=== PATIENT | female | born 1945 | race Caucasian/White ===

== ENCOUNTER → 2016-06-09 | Outpatient (REF) | payer MEDICARE, OTHER ==
[~2016-06-09] MED LIST: ACET65TA OR; ALBUTEROL INH; ARTHRITIS MEDICINE; ASPI1TAB PO; ASPI81TA45 OR; B-1210009 PO; CALC1TAB30 PO; CALCCHW12 OR; CEPH500C PO; CLAR5CHW OR; CYCL10TA PO; DIGO0.12 PO; DIGO0.126 OR; FERR325T OR; FERR32TA PO; HUMI40KI SC; HYOS125TA SL; KLS75TAB OR; METF850T PO; METO-209 PO; MULTIVIT; Mobic PO; OMEP40CA2 PO; PRAD150C PO; PRADAXA PO; ROSU10TA PO; SERT-138 PO; SULF500T2 PO; SYNT50TA PO; TOPR100T OR; TRAM50TA2 PO; VITA100T OR; VITA50003 PO; ZOLO100T OR; ZYRT1TAB PO
[2016-06-09 13:57] LABS: ALBUMIN 3.9 GM/DL (3.2-5.2); ALBUMIN/GLOBULIN RATIO 1.11 (1.00-1.93); ALKALINE PHOSPHATASE 108 U/L (45-117); ALT/SGPT 28 U/L (12-78); ANION GAP 8 MEQ/L (8-16); AST/SGOT 24 U/L (15-37); BILIRUBIN,TOTAL 0.4 MG/DL (0.2-1.0); BLOOD UREA NITROGEN 16 MG/DL (7-18); CALCIUM LEVEL 8.6 MG/DL (8.8-10.2); CARBON DIOXIDE LEVEL 28 MEQ/L (21-32); CHLORIDE LEVEL 104 MEQ/L (98-107); CHOLESTEROL LEVEL 125 MG/DL (<200); CREATININE FOR GFR 0.78 MG/DL (0.55-1.02); GLOMERULAR FILTRATION RATE > 60.0 (>39); GLUCOSE, FASTING 285 MG/DL (83-110); POTASSIUM SERUM 4.1 MEQ/L (3.5-5.1); SODIUM LEVEL 140 MEQ/L (136-145); TOTAL PROTEIN 7.4 GM/DL (6.4-8.2); TRIGLYCERIDES LEVEL 146 MG/DL (<150)
== END ==
LOC: M LABDRAW1 13:02
PROVIDERS: ATTEND Family Medicine
DX: E55.9 Vitamin D deficiency, unspecified (principal); E11.9 Type 2 diabetes mellitus without complications

== ENCOUNTER → 2016-07-23 | Outpatient (CLI) | payer OTHER, MEDICARE ==
[2016-07-23 12:38] LABS: FERRITIN 146 NG/ML (8-252); PERCENT SATURATION 22.5 % (13.2-37.4); TOTAL IRON BINDING CAPACITY 293 UG/DL (250-450)
[2016-07-26 09:19] LABS: VITAMIN B12 LEVEL 1066 PG/ML (247-911)
[2016-07-26 12:24] LABS: HEPATITIS B SURFACE ANTIBODY NEGATIVE (POSITIVE)
== END ==
LOC: M WUC 10:07
PROVIDERS: ATTEND Internal Medicine Gastroenterology
DX: K50.10 Crohn's disease of large intestine without complications (principal); K21.9 Gastro-esophageal reflux disease without esophagitis; K75.81 Nonalcoholic steatohepatitis (NASH); M13.0 Polyarthritis, unspecified; R13.10 Dysphagia, unspecified

== ENCOUNTER → 2016-07-27 | Outpatient (CLI) | payer OTHER ==
[~2016-07-27] MED LIST changes: +CRES10TA32 PO; -ROSU10TA PO
--- NOTE | 2016-07-27 09:53 | REPMRS ---
Patient History The patient states she has not had a clinical breast exam in over a year. Patient is postmenopausal. Family history of prostate cancer in father at age 50 or over, breast cancer in 3 paternal cousins under age 50, and colorectal cancer in paternal cousin at age 50 or over. Took estrogen for 10 years. Digital Woman Screen Mammo: July 27, 2016 - Exam #: [id number] Bilateral CC and MLO view(s) were taken. Technologist: Kamini Carpenter, Technologist Prior study comparison: July 08, 2015, digital woman screen mammo performed at [facility]. July 07, 2014, digital woman screen mammo performed at [facility]. July 16, 2013, digital woman screen mammo performed at [facility]. FINDINGS: There are scattered fibroglandular densities. There has been no change in the appearance of the mammogram from the prior studies. There is a mild amount of residual fibroglandular tissue which is fairly symmetric. There is no interval development of dominant mass, architectural distortion, or clustered microcalcification suggestive of malignancy. There are scattered, small, benign calcifications of doubtful clinical significance. There is a benign appearing intramammary node in the upper outer quadrant of the bilateral breasts. Large coarse benign appearing calcifications are present. Scattered lymph nodes are seen in the axillae. No significant changes when compared with prior studies. ASSESSMENT: BI-RADS/ACR category 2 mammogram. Benign finding(s). Recommendation Routine screening mammogram in 1 year (for women over age 40). This mammogram was interpreted with the aid of an FDA-approved computer-aided dectection system. A. Negative x-ray reports should not delay biopsy if a dominant or clinically suspicious mass is present. B. Four to eight percent of cancers are not identified by mammography. C. Adenosis and dense breast may obscure an underlying neoplasm. Electronically Signed By: Uri Jones MD 07/27/16 0953
--- NOTE | 2016-07-28 13:37 | DEXA ---
AP SPINE L1 - L4 1.256 0.5 1.0 LT FEMUR TOTAL 0.875 -1.1 -0.4 RT FEMUR TOTAL 0.848 -1.3 -0.6 TOTAL BODY TOTAL OTHER DUAL FEMUR FRAX* ASSESSMENT Risk factors: Family history (parent hip fracture). History of fracture (adult ). Secondary osteoporosis (premature menopause). Rheumatoid arthritis. 10 year probability of fracture Major osteoporotic fracture 24.6 % Hip fracture 4.5 % COMMENTS: Normal bone densitometry of the spine. There is low bone density of the left hip. There is low bone density of the right hip. There is degenerative change in the spine which may artificially elevate the BMD. The increased density of the spine does represent a significant change since . The increased density of the left hip does not represent a significant change since 07/16/2013. The increased density of the right hip does not represent a significant change. The density of the spine has increased 3.3% since the initial exam on 2002. The spine density has increased 1.7% since the most recent exam on 07/16/2013. The density of the left hip has increased 0.1% since the initial exam on 2002. The density of the left hip has increased 0.5% since the most recent exam on . The density of the right hip has decreased 3.0% since the initial exam on 2002. The density of the right hip has increased 0.4% since the most recent exam on . FOLLOW-UP: Recommendation for the next bone density exam: 2 years. AIME
== END ==
LOC: M WHC 08:50
PROVIDERS: ATTEND Family Medicine
DX: E55.9 Vitamin D deficiency, unspecified (principal); Z12.31 Encounter for screening mammogram for malignant neoplasm of breast; M85.852 Other specified disorders of bone density and structure, left thigh; M85.851 Other specified disorders of bone density and structure, right thigh; M85.89 Other specified disorders of bone density and structure, multiple sites
CPT/HCPCS: 77080; G0202

== ENCOUNTER → 2016-12-12 | Outpatient (CLI) | payer OTHER ==
[~2016-12-12] MED LIST changes: -METF850T PO; +METF850T4 PO; -METO-209 PO; +METO1TAB33 PO; +VITA1CAP40 PO; -VITA50003 PO
[2016-12-12 14:29] LABS: BASO # 0.1 K/mm3 (0.0-0.2); EOS # 0.1 K/mm3 (0.0-0.50); EOS % 1.8 % (0.0-3.0); LARGE UNSTAINED CELL # 0.2 K/mm3 (0.0-0.4); LARGE UNSTAINED CELL % 2.9 % (0.0-4.0); LYMPH # 2.2 K/mm3 (1.5-4.5); LYMPH % 28.4 % (24.0-44.0); MEAN CORPUSCULAR HEMOGLOBIN 30.4 pg (27.0-33.0); MEAN CORPUSCULAR HGB CONC 32.6 g/dl (32.0-36.5); MEAN CORPUSCULAR VOLUME 93.5 fl (80.0-96.0); MONO # 0.6 K/mm3 (0.0-0.8); MONO % 8.9 % (0.0-5.0); PLATELET COUNT, AUTOMATED 271 k/mm3 (150-450); RED CELL DISTRIBUTION WIDTH 12.6 % (11.5-14.5)
[2016-12-12 15:21] LABS: PERCENT SATURATION 27.4 % (13.2-45.0)
== END ==
LOC: M SMT 09:06
PROVIDERS: ATTEND Family Medicine
DX: D50.9 Iron deficiency anemia, unspecified (principal); E11.9 Type 2 diabetes mellitus without complications

== ENCOUNTER → 2017-02-23 | Outpatient (REF) | payer OTHER ==
[2017-02-23 17:44] LABS: ALBUMIN 3.9 GM/DL (3.2-5.2); ALBUMIN/GLOBULIN RATIO 0.95 (1.00-1.93); ALKALINE PHOSPHATASE 119 U/L (45-117); ALT/SGPT 29 U/L (12-78); ANION GAP 6 MEQ/L (8-16); AST/SGOT 35 U/L (7-37); BILIRUBIN,TOTAL 0.4 MG/DL (0.2-1.0); BLOOD UREA NITROGEN 12 MG/DL (7-18); CALCIUM LEVEL 9.3 MG/DL (8.8-10.2); CARBON DIOXIDE LEVEL 34 MEQ/L (21-32); CHLORIDE LEVEL 97 MEQ/L (98-107); CREATININE FOR GFR 0.58 MG/DL (0.55-1.02); GLOMERULAR FILTRATION RATE > 60.0 (>39); GLUCOSE, FASTING 128 MG/DL (83-110); POTASSIUM SERUM 4.5 MEQ/L (3.5-5.1); SODIUM LEVEL 137 MEQ/L (136-145)
[2017-02-23 17:57] LABS: MEAN CORPUSCULAR HEMOGLOBIN 29.9 pg (27.0-33.0); MEAN CORPUSCULAR HGB CONC 32.2 g/dl (32.0-36.5); MEAN CORPUSCULAR VOLUME 92.9 fl (80.0-96.0); RED CELL DISTRIBUTION WIDTH 12.9 % (11.5-14.5)
[2017-02-23 17:58] LABS: CBCMD ORDERED? YES (YES)
[2017-02-23 18:23] LABS: ERYTHROCYTE SEDIMENTATION RATE 49 mm/hr (0-30)
== END ==
LOC: M SFHCPLAZ 14:40
PROVIDERS: ATTEND Family Medicine
DX: M46.90 Unspecified inflammatory spondylopathy, site unspecified (principal)

== ENCOUNTER → 2017-02-23 | Outpatient (CLI) | payer OTHER ==
--- NOTE | 2017-02-23 17:13 | REP ---
Left foot four views: There is diffuse demineralization. There is no fracture or dislocation. There is PIP and DIP joint space narrowing. There are calcaneal plantar and Achilles spurs. There is spurring along the superior margin of the talonavicular articulation. Impression: Degenerative changes and mineralization. Signed by Pietro Whatley MD 02/23/2017 05:05 P
== END ==
LOC: M RAD 15:30
PROVIDERS: ATTEND Family Medicine
DX: M77.32 Calcaneal spur, left foot (principal); M19.072 Primary osteoarthritis, left ankle and foot; M85.872 Other specified disorders of bone density and structure, left ankle and foot; M46.90 Unspecified inflammatory spondylopathy, site unspecified

== ENCOUNTER 2017-04-20 08:51 | Outpatient (CLI) | payer OTHER ==
[2017-04-20] MEDS ORDERED: NS 1,000 ML IV SCH (10:15)
[2017-04-20] MEDS ORDERED: ACETAMINOPHEN TAB 650MG DOSE (2X325MG) PO ONE (10:15)
[2017-04-20] MEDS ORDERED: diphenhydrAMINE 25 MG CAP PO ONE (10:15)
[2017-04-20] MEDS ORDERED: INFLIXIMAB BIOSIMILAR 600 MG in NS 190 ML IV ONE (10:30)
== END 2017-04-20 13:00 | disposition home or self-care (01) ==
LOC: M INFU 08:51
PROVIDERS: ATTEND Internal Medicine
DX: K50.90 Crohn's disease, unspecified, without complications (principal); Z96.653 Presence of artificial knee joint, bilateral; Z88.8 Allergy status to other drugs, medicaments and biological substances; Z88.5 Allergy status to narcotic agent; Z79.82 Long term (current) use of aspirin; Z79.899 Other long term (current) drug therapy
CPT/HCPCS: 96413; 96415; Q5102

== ENCOUNTER 2017-05-04 08:53 | Outpatient (CLI) | payer OTHER ==
[2017-05-04] MEDS: diphenhydrAMINE 25 MG CAP PO (09:28)
[2017-05-04] MEDS: ACETAMINOPHEN TAB 650MG DOSE (2X325MG) PO (09:30)
[2017-05-04] MEDS: NS 1,000 ML IV (09:54)
[2017-05-04] MEDS: INFLIXIMAB BIOSIMILAR 600 MG in NS 190 ML IV (09:54)
== END 2017-05-04 12:30 | disposition home or self-care (01) ==
LOC: M INFU 08:53
DX: K50.10 Crohn's disease of large intestine without complications (principal); I48.91 Unspecified atrial fibrillation; E78.00 Pure hypercholesterolemia, unspecified; K44.9 Diaphragmatic hernia without obstruction or gangrene; E03.9 Hypothyroidism, unspecified; E11.9 Type 2 diabetes mellitus without complications; M54.9 Dorsalgia, unspecified; M19.90 Unspecified osteoarthritis, unspecified site; Z79.899 Other long term (current) drug therapy; Z79.82 Long term (current) use of aspirin; Z79.891 Long term (current) use of opiate analgesic; Z79.84 Long term (current) use of oral hypoglycemic drugs; Z88.5 Allergy status to narcotic agent; Z88.2 Allergy status to sulfonamides; Z88.8 Allergy status to other drugs, medicaments and biological substances
CPT/HCPCS: 96413

== ENCOUNTER 2017-06-15 07:49 | Outpatient (CLI) | payer OTHER ==
[2017-06-15] MEDS: diphenhydrAMINE 25 MG CAP PO ×2 (08:15)
[2017-06-15] MEDS: ACETAMINOPHEN TAB 650MG DOSE (2X325MG) PO ×2 (08:15)
[2017-06-15] MEDS: INFLIXIMAB BIOSIMILAR 600 MG in NS 190 ML IV (09:04)
[2017-06-15] MEDS: NS 1,000 ML IV ×2 (09:04)
== END 2017-06-15 11:40 | disposition home or self-care (01) ==
LOC: M INFU 07:49
DX: K50.90 Crohn's disease, unspecified, without complications (principal); E11.9 Type 2 diabetes mellitus without complications; Z79.82 Long term (current) use of aspirin; Z79.84 Long term (current) use of oral hypoglycemic drugs; Z79.899 Other long term (current) drug therapy; Z79.891 Long term (current) use of opiate analgesic; Z88.5 Allergy status to narcotic agent; Z88.8 Allergy status to other drugs, medicaments and biological substances
CPT/HCPCS: Q5102

== ENCOUNTER → 2017-06-22 | Outpatient (CLI) | payer OTHER ==
[2017-06-22 14:37] LABS: PTH INTACT 28.3 PG/ML (18.5-88.0); TOTAL 25(OH) VITAMIN D 31.6 NG/ML (30.0-100.0)
[2017-06-22 14:42] LABS: ALBUMIN 3.9 GM/DL (3.2-5.2); ALBUMIN/GLOBULIN RATIO 1.05 (1.00-1.93); ALKALINE PHOSPHATASE 114 U/L (45-117); ALT/SGPT 36 U/L (12-78); ANION GAP 8 MEQ/L (8-16); AST/SGOT 48 U/L (7-37); BILIRUBIN,TOTAL 0.4 MG/DL (0.2-1.0); BLOOD UREA NITROGEN 12 MG/DL (7-18); C REACTIVE PROTEIN QUANTITATIV 0.93 MG/DL (0.00-0.30); CALCIUM LEVEL 8.8 MG/DL (8.8-10.2); CARBON DIOXIDE LEVEL 32 MEQ/L (21-32); CHLORIDE LEVEL 99 MEQ/L (98-107); CHOLESTEROL LEVEL 136 MG/DL (<200); CHOLESTEROL RISK RATIO 2.666 (<5); CPK CREATINE PHOSPHOKINASE 29 U/L (26-192); CREATININE FOR GFR 0.61 MG/DL (0.55-1.30); FREE T4 1.28 NG/DL (0.76-1.46); GLOMERULAR FILTRATION RATE > 60.0 (>39); GLUCOSE, FASTING 189 MG/DL (70-100); HDL CHOLESTEROL 51 MG/DL (>40); LDL CHOLESTEROL 56.2 MG/DL (<100); MAGNESIUM LEVEL 2.3 MG/DL (1.8-2.4); NON-HDL-C 85 MG/DL; POTASSIUM SERUM 4.5 MEQ/L (3.5-5.1); SODIUM LEVEL 139 MEQ/L (136-145); TOTAL PROTEIN 7.6 GM/DL (6.4-8.2); TRIGLYCERIDES LEVEL 144 MG/DL (<150)
[2017-06-22 15:49] LABS: ERYTHROCYTE SEDIMENTATION RATE 46 mm/hr (0-30)
== END ==
LOC: M SMT 08:27
DX: E78.5 Hyperlipidemia, unspecified (principal); E55.9 Vitamin D deficiency, unspecified; M46.90 Unspecified inflammatory spondylopathy, site unspecified; E03.9 Hypothyroidism, unspecified
CPT/HCPCS: 82550

== ENCOUNTER → 2017-08-02 | Outpatient (CLI) | payer OTHER ==
[2017-08-02 10:14] LABS: C REACTIVE PROTEIN QUANTITATIV 0.93 MG/DL (0.00-0.30)
[2017-08-02 10:26] LABS: ERYTHROCYTE SEDIMENTATION RATE 46 mm/hr (0-30)
== END ==
LOC: M LAB 09:13
DX: K50.10 Crohn's disease of large intestine without complications (principal)
CPT/HCPCS: 86140

== ENCOUNTER 2017-08-10 13:44 | Outpatient (CLI) | payer OTHER ==
[2017-08-10] MEDS: diphenhydrAMINE 25 MG CAP PO (14:37)
[2017-08-10] MEDS: ACETAMINOPHEN TAB 650MG DOSE (2X325MG) PO (14:37)
[2017-08-10] MEDS: NS 1,000 ML IV (14:38)
[2017-08-10] MEDS: inFLIXimab INJECTION 600 MG in NS 190 ML IV (14:38)
== END 2017-08-10 17:15 | disposition home or self-care (01) ==
LOC: M INFU 13:44
DX: K50.10 Crohn's disease of large intestine without complications (principal); I48.91 Unspecified atrial fibrillation; E78.00 Pure hypercholesterolemia, unspecified; E11.9 Type 2 diabetes mellitus without complications; D64.9 Anemia, unspecified; J45.909 Unspecified asthma, uncomplicated; K44.9 Diaphragmatic hernia without obstruction or gangrene; Z79.84 Long term (current) use of oral hypoglycemic drugs; Z79.82 Long term (current) use of aspirin; Z79.891 Long term (current) use of opiate analgesic; Z79.899 Other long term (current) drug therapy; Z88.5 Allergy status to narcotic agent; Z88.8 Allergy status to other drugs, medicaments and biological substances
CPT/HCPCS: J1745

== ENCOUNTER 2017-10-05 11:24 | Outpatient (CLI) | payer OTHER ==
[2017-10-05] MEDS: FILTER 1.2 MICRON (ADULT TPN/MANNITOL/REMICADE) XX (12:45)
[2017-10-05] MEDS: diphenhydrAMINE 25 MG CAP PO (12:48)
[2017-10-05] MEDS: NS 1,000 ML IV (12:48)
[2017-10-05] MEDS: ACETAMINOPHEN TAB 650MG DOSE (2X325MG) PO (12:48)
[2017-10-05] MEDS: INFLIXIMAB BIOSIMILAR 600 MG in NS 190 ML IV (13:00)
== END 2017-10-05 15:20 | disposition home or self-care (01) ==
LOC: M INFU 11:24
DX: K50.10 Crohn's disease of large intestine without complications (principal); E78.00 Pure hypercholesterolemia, unspecified; I51.9 Heart disease, unspecified; K21.9 Gastro-esophageal reflux disease without esophagitis; K44.9 Diaphragmatic hernia without obstruction or gangrene; M54.2 Cervicalgia; M12.9 Arthropathy, unspecified; D64.9 Anemia, unspecified; E11.9 Type 2 diabetes mellitus without complications; Z79.82 Long term (current) use of aspirin; Z79.84 Long term (current) use of oral hypoglycemic drugs; Z79.891 Long term (current) use of opiate analgesic; Z79.899 Other long term (current) drug therapy; Z88.8 Allergy status to other drugs, medicaments and biological substances; Z90.49 Acquired absence of other specified parts of digestive tract; Z90.710 Acquired absence of both cervix and uterus
CPT/HCPCS: Q5103

== ENCOUNTER → 2017-11-02 | Outpatient (CLI) | payer OTHER ==
[2017-11-02 11:55] LABS: BASO # 0.1 10^3/uL (0.0-0.2); EOS # 0.1 10^3/uL (0.0-0.50); EOS % 1.5 % (0.0-3.0); HEMATOCRIT 38.9 % (36.0-47.0); HEMOGLOBIN 12.4 g/dl (12.0-15.5); IMMATURE GRANULOCYTE % 0.4 % (0-3.0); LYMPH % 28.8 % (24.0-44.0); MEAN CORPUSCULAR HEMOGLOBIN 30.2 pg (27.0-33.0); MEAN CORPUSCULAR HGB CONC 31.9 g/dl (32.0-36.5); MEAN CORPUSCULAR VOLUME 94.9 fl (80.0-96.0); MONO # 0.9 10^3/uL (0.0-0.8); MONO % 12.4 % (0.0-5.0); NEUTROPHILS # 3.8 10^3/uL (1.8-7.7); NEUTROPHILS % 55.9 % (36.0-66.0); PLATELET COUNT, AUTOMATED 269 10^3/uL (150-450); RED CELL DISTRIBUTION WIDTH 12.3 % (11.5-14.5); RETIC HEMOGLOBIN EQUIVALENT 34.5 pg (24-36); RETICULOCYTE # 79.5 10^9/L (17-77); RETICULOCYTE % 1.9 % (0.5-1.5); WHITE BLOOD COUNT 6.9 10^3/uL (4.0-10.0)
[2017-11-02 13:27] LABS: ESTIMATED AVERAGE GLUCOSE 137 MG/DL (60-110); HEMOGLOBIN A1c 6.4 %
[2017-11-02 14:37] LABS: VITAMIN B12 LEVEL 1795 PG/ML (247-911)
[2017-11-07 00:08] LABS: FREE T4 BY DIALYSIS DIRECT 1.4 ng/dL (.)
== END ==
LOC: M SMT 08:18
DX: E11.9 Type 2 diabetes mellitus without complications (principal); D50.9 Iron deficiency anemia, unspecified; E53.8 Deficiency of other specified B group vitamins; E03.9 Hypothyroidism, unspecified
CPT/HCPCS: 84443

== ENCOUNTER 2017-11-16 07:49 | Outpatient (CLI) | payer OTHER ==
[2017-11-16] MEDS: ACETAMINOPHEN TAB 650MG DOSE (2X325MG) PO (08:00)
[2017-11-16] MEDS: FILTER 1.2 MICRON (ADULT TPN/MANNITOL/REMICADE) XX (08:00)
[2017-11-16] MEDS: diphenhydrAMINE 25 MG CAP PO (08:18)
[2017-11-16] MEDS: NS 1,000 ML IV (08:59)
[2017-11-16] MEDS: inFLIXimab INJECTION 600 MG in NS 190 ML IV (09:24)
== END 2017-11-16 11:20 | disposition home or self-care (01) ==
LOC: M INFU 07:49
DX: K50.00 Crohn's disease of small intestine without complications (principal); J45.909 Unspecified asthma, uncomplicated; E78.00 Pure hypercholesterolemia, unspecified; D64.9 Anemia, unspecified; M54.2 Cervicalgia; K21.9 Gastro-esophageal reflux disease without esophagitis; E11.9 Type 2 diabetes mellitus without complications; I48.91 Unspecified atrial fibrillation; Z79.82 Long term (current) use of aspirin; Z79.84 Long term (current) use of oral hypoglycemic drugs; Z79.891 Long term (current) use of opiate analgesic; Z79.899 Other long term (current) drug therapy; Z88.8 Allergy status to other drugs, medicaments and biological substances
CPT/HCPCS: J1745

== ENCOUNTER → 2017-12-07 | Outpatient (CLI) | payer OTHER | LOC: M LRY 09:09 | DX: M51.36 Other intervertebral disc degeneration, lumbar region (principal); M51.37 Other intervertebral disc degeneration, lumbosacral region; M25.78 Osteophyte, vertebrae; M25.732 Osteophyte, left wrist; M19.041 Primary osteoarthritis, right hand; M19.042 Primary osteoarthritis, left hand; M53.3 Sacrococcygeal disorders, not elsewhere classified; M85.841 Other specified disorders of bone density and structure, right hand; M85.842 Other specified disorders of bone density and structure, left hand; M19.031 Primary osteoarthritis, right wrist; M19.032 Primary osteoarthritis, left wrist; M47.816 Spondylosis without myelopathy or radiculopathy, lumbar region; M46.90 Unspecified inflammatory spondylopathy, site unspecified | CPT/HCPCS: 72100 ==

== ENCOUNTER → 2017-12-21 | Outpatient (REF) | payer OTHER ==
[2017-12-21 11:37] LABS: URIC ACID 4.2 MG/DL (2.6-6.0)
[2017-12-21 11:37] LABS: C REACTIVE PROTEIN QUANTITATIV 1.41 MG/DL (0.00-0.30); RHEUMATOID FACTOR QUANT < 10.0 IU/ML (<15.0)
[2017-12-21 12:12] LABS: ERYTHROCYTE SEDIMENTATION RATE 59 mm/hr (0-30)
[2017-12-23 00:06] LABS: CYCLIC CITRULLINATED PEPTIDE 10 units (0-19)
== END ==
LOC: M LABDRAW1 09:08
DX: M46.90 Unspecified inflammatory spondylopathy, site unspecified (principal)
CPT/HCPCS: 84550

== ENCOUNTER 2017-12-28 07:56 | Outpatient (CLI) | payer OTHER ==
[2017-12-28] MEDS: ACETAMINOPHEN TAB 650MG DOSE (2X325MG) PO (08:15)
[2017-12-28] MEDS ORDERED: NS 1,000 ML IV (08:15)
[2017-12-28] MEDS: diphenhydrAMINE 25 MG CAP PO (08:17)
[2017-12-28] MEDS: FILTER 1.2 MICRON (ADULT TPN/MANNITOL/REMICADE) XX (09:00)
[2017-12-28] MEDS: inFLIXimab INJECTION 600 MG in NS 190 ML IV (09:03)
== END 2017-12-28 11:15 | disposition home or self-care (01) ==
LOC: M INFU 07:56
DX: K50.10 Crohn's disease of large intestine without complications (principal); Z88.5 Allergy status to narcotic agent; Z88.8 Allergy status to other drugs, medicaments and biological substances
CPT/HCPCS: J1745

== ENCOUNTER 2018-02-08 07:49 | Outpatient (CLI) | payer OTHER ==
[2018-02-08] MEDS: FILTER 1.2 MICRON (ADULT TPN/MANNITOL/REMICADE) XX (08:15)
[2018-02-08] MEDS: NS 1,000 ML IV (08:15)
[2018-02-08] MEDS: diphenhydrAMINE 25 MG CAP PO (08:43)
[2018-02-08] MEDS: ACETAMINOPHEN TAB 650MG DOSE (2X325MG) PO (08:43)
[2018-02-08] MEDS: inFLIXimab INJECTION 600 MG in NS 190 ML IV (08:44)
== END 2018-02-08 11:00 | disposition home or self-care (01) ==
LOC: M INFU 07:49
DX: K50.10 Crohn's disease of large intestine without complications (principal); Z88.5 Allergy status to narcotic agent; Z88.8 Allergy status to other drugs, medicaments and biological substances
CPT/HCPCS: J1745

== ENCOUNTER → 2018-03-12 | Outpatient (REF) | payer OTHER ==
[2018-03-12 14:21] LABS: HEMATOCRIT 37.6 % (36.0-47.0); HEMOGLOBIN 11.8 g/dl (12.0-15.5); MEAN CORPUSCULAR HGB CONC 31.4 g/dl (32.0-36.5); MEAN CORPUSCULAR VOLUME 95.7 fl (80.0-96.0); PLATELET COUNT, AUTOMATED 252 10^3/uL (150-450); RED BLOOD COUNT 3.93 10^6/uL (4.00-5.40); RED CELL DISTRIBUTION WIDTH 12.6 % (11.5-14.5); WHITE BLOOD COUNT 6.5 10^3/uL (4.0-10.0)
[2018-03-12 14:28] LABS: ALBUMIN 3.8 GM/DL (3.2-5.2); ALKALINE PHOSPHATASE 98 U/L (45-117); ALT/SGPT 23 U/L (12-78); ANION GAP 8 MEQ/L (8-16); AST/SGOT 29 U/L (7-37); BILIRUBIN,TOTAL 0.4 MG/DL (0.2-1.0); BLOOD UREA NITROGEN 16 MG/DL (7-18); CARBON DIOXIDE LEVEL 31 MEQ/L (21-32); CHLORIDE LEVEL 99 MEQ/L (98-107); CREATININE FOR GFR 0.66 MG/DL (0.55-1.30); GLOMERULAR FILTRATION RATE > 60.0 (>39); GLUCOSE, FASTING 133 MG/DL (70-100); POTASSIUM SERUM 4.5 MEQ/L (3.5-5.1); SODIUM LEVEL 138 MEQ/L (136-145); TOTAL PROTEIN 7.6 GM/DL (6.4-8.2)
[2018-03-12 14:32] LABS: INR 1.13; PROTHROMBIN TIME 14.6 SECONDS (12.1-14.4)
[2018-03-12 14:34] LABS: ALPHA FETOPROTEIN TUMOR QUANT 6.4 NG/ML (<8.1)
[2018-03-12 14:35] LABS: TOTAL 25(OH) VITAMIN D 33.2 NG/ML (30.0-100.0)
[2018-03-15 09:37] LABS: ANSER IFX #3150 SEE SEPARATE REPORT
== END ==
LOC: M LABDRAW1 12:59
DX: K50.10 Crohn's disease of large intestine without complications (principal); R19.7 Diarrhea, unspecified; M13.0 Polyarthritis, unspecified; K21.9 Gastro-esophageal reflux disease without esophagitis; K22.2 Esophageal obstruction; K75.81 Nonalcoholic steatohepatitis (NASH)
CPT/HCPCS: 83735

== ENCOUNTER 2018-03-25 07:50 | Outpatient (CLI) | payer OTHER ==
[2018-03-25] MEDS ORDERED: diphenhydrAMINE 50 MG CAP As Ordered (07:57)
[2018-03-25] MEDS: diphenhydrAMINE 50MG PO PRIOR TO INFUSION PO (08:13)
[2018-03-25] MEDS: ACETAMINOPHEN 650MG PO PRIOR TO INFUSION PO (08:13)
[2018-03-25] MEDS: NS 1,000 ML IV (08:14)
[2018-03-25] MEDS: inFLIXimab INJECTION 600 MG in NS 190 ML IV (08:50)
[2018-03-25] MEDS ORDERED: FILTER 1.2 MICRON (ADULT TPN/MANNITOL/REMICADE) XX (09:00)
== END 2018-03-25 11:05 | disposition home or self-care (01) ==
LOC: M INFU 07:50
DX: K50.10 Crohn's disease of large intestine without complications (principal); Z88.5 Allergy status to narcotic agent; Z88.8 Allergy status to other drugs, medicaments and biological substances
CPT/HCPCS: J1745

== ENCOUNTER → 2018-04-08 | Outpatient (REF) | payer OTHER ==
[2018-04-08 12:24] LABS: PH,URINE MAN 5.5 UNITS (5.0 - 7.0)
[2018-04-08 12:25] LABS: APPEARANCE, URINE MANUAL HAZY (CLEAR); BILIRUBIN, URINE MANUAL NEGATIVE (NEGATIVE); BLOOD URINE MANUAL NEGATIVE (NEGATIVE); COLOR, URINE MANUAL YELLOW (YELLOW); GLUCOSE, URINE (UA) MANUAL NEGATIVE (NEGATIVE); KETONE, URINE MANUAL NEGATIVE (NEGATIVE); LEUKOCYTE ESTERASE, URINE MAN POSITIVE (NEGATIVE); MICROSCOPIC INDICATED? MAN YES (NO); NITRITE, URINE MANUAL NEGATIVE (NEGATIVE); PROTEIN, URINE MANUAL 1+ mg/dL (NEGATIVE); UROBILINOGEN, URINE MANUAL NORMAL (NORMAL)
[2018-04-08 12:28] LABS: CALCIUM OXALATE CRYSTALS,URINE SMALL AMOUNT /hpf; RBC, URINE NONE SEEN /hpf (0-3); RENAL EPITHELIAL CELLS, URINE SMALL AMOUNT /hpf; SQUAMOUS EPITHELIAL CELL URINE SMALL AMOUNT /hpf (SMALL AMT)
[2018-04-08 12:29] LABS: AMORPHOUS SEDIMENT, URINE SMALL AMOUNT (NEGATIVE); BACTERIA, URINE SMALL AMOUNT; HYALINE CAST, URINE 0-1 /lpf (0-1); MICROSCOPIC EXAM PERFORMED
[2018-04-08 12:47] LABS: MALB URINE SIEMENS 46.3 MG/L; MAU/CREAT RATIO 21.6 MCG/MG (0.0-30.0)
[2018-04-11 00:06] LABS: QuantiFERON-TB Gold Plus Negative (Negative)
== END ==
LOC: M SFHCPLAZ 09:03
DX: M46.90 Unspecified inflammatory spondylopathy, site unspecified (principal)
CPT/HCPCS: 82043

== ENCOUNTER → 2018-04-15 | Outpatient (REF) | payer OTHER ==
[~2018-04-15] MED LIST changes: -VITA1CAP40 PO; +VITA50005 PO
[2018-04-15 12:30] LABS: BASO # 0.1 10^3/uL (0.0-0.2); EOS # 0.1 10^3/uL (0.0-0.50); EOS % 1.5 % (0.0-3.0); HEMATOCRIT 37.5 % (36.0-47.0); HEMOGLOBIN 11.8 g/dl (12.0-15.5); LYMPH % 29.7 % (24.0-44.0); MEAN CORPUSCULAR HEMOGLOBIN 29.9 pg (27.0-33.0); MEAN CORPUSCULAR HGB CONC 31.5 g/dl (32.0-36.5); MEAN CORPUSCULAR VOLUME 95.2 fl (80.0-96.0); MONO # 0.8 10^3/uL (0.0-0.8); MONO % 11.2 % (0.0-5.0); NEUTROPHILS # 3.8 10^3/uL (1.8-7.7); NEUTROPHILS % 56.2 % (36.0-66.0); PLATELET COUNT, AUTOMATED 265 10^3/uL (150-450); RED BLOOD COUNT 3.94 10^6/uL (4.00-5.40); WHITE BLOOD COUNT 6.7 10^3/uL (4.0-10.0)
[2018-04-15 12:40] LABS: APPEARANCE, URINE CLOUDY (CLEAR); BACTERIA, URINE AUTO 2+ (NEGATIVE); BILIRUBIN, URINE AUTO NEGATIVE (NEGATIVE); BLOOD, URINE BLOOD NEGATIVE (NEGATIVE); CALCIUM OXALATE CRYSTALS LARGE; COLOR, URINE AMBER (YELLOW); GLUCOSE, URINE (UA) AUTO NEGATIVE (NEGATIVE); KETONE, URINE AUTO NEGATIVE (NEGATIVE); LEUKOCYTE ESTERASE, URINE AUTO 3+ (NEGATIVE); MUCUS, URINE SMALL (NEGATIVE); NITRITE, URINE AUTO NEGATIVE (NEGATIVE); PROTEIN, URINE AUTO 1+ mg/dL (NEGATIVE); RBC, URINE AUTO 4 /HPF (0-3); SPECIFIC GRAVITY URINE AUTO 1.031 (1.002-1.035); SQUAMOUS EPITHELIAL CELL UR AU 21 /HPF (0-6); WBC, URINE AUTO 24 /HPF (0-3)
[2018-04-15 12:46] LABS: CHOLESTEROL RISK RATIO 3.021 (<5); FREE T4 1.1 NG/DL (0.76-1.46); THYROID STIMULATING HORMONE 5.77 uIU/ML (0.358-3.740)
[2018-04-15 13:43] LABS: MALB URINE SIEMENS 80.7 MG/L
== END ==
LOC: M SFHCPLAZ 08:40
PROVIDERS: ATTEND Physician Assistant Medical
DX: D50.9 Iron deficiency anemia, unspecified (principal); E78.5 Hyperlipidemia, unspecified; M46.90 Unspecified inflammatory spondylopathy, site unspecified

== ENCOUNTER 2018-05-13 11:05 | Outpatient (CLI) | payer MEDICARE, OTHER ==
[2018-05-13] VITALS (9 sets, daily range): BP systolic 121–170; BP diastolic 59–77
[~2018-05-13] VITALS: Ht 160 cm; Wt 123.3 kg
[2018-05-13] MEDS ORDERED: NS 1,000 ML IV SCH (12:00)
[2018-05-13] MEDS ORDERED: FILTER 1.2 MICRON (ADULT TPN/MANNITOL/REMICADE) XX ONE (12:00)
[2018-05-13] MEDS ORDERED: inFLIXimab INJECTION 600 MG in NS 190 ML IV ONE (12:00)
[2018-05-13] MEDS ORDERED: diphenhydrAMINE 50MG PO PRIOR TO INFUSION PO ONE (12:00)
[2018-05-13] MEDS ORDERED: ACETAMINOPHEN 650MG PO PRIOR TO INFUSION PO ONE (12:00)
== END 2018-05-13 14:45 | disposition home or self-care (01) ==
LOC: M INFU 11:05
PROVIDERS: ATTEND General Practice
DX: K50.10 Crohn's disease of large intestine without complications (principal); Z88.5 Allergy status to narcotic agent; Z88.2 Allergy status to sulfonamides; Z88.8 Allergy status to other drugs, medicaments and biological substances
CPT/HCPCS: 96413; 96415; J1745

== ENCOUNTER 2018-06-24 07:41 | Outpatient (CLI) | payer MEDICARE ==
[~2018-06-24] VITALS: Ht 162.6 cm; Wt 116.0 kg
[2018-06-24 07:59] VITALS: BP 141/93
[2018-06-24] MEDS ORDERED: diphenhydrAMINE 50MG PO PRIOR TO INFUSION PO ONE (08:00)
[2018-06-24] MEDS ORDERED: FILTER 1.2 MICRON (ADULT TPN/MANNITOL/REMICADE) XX ONE (08:00)
[2018-06-24] MEDS ORDERED: NS 1,000 ML IV SCH (08:00)
[2018-06-24] MEDS ORDERED: ACETAMINOPHEN 650MG PO PRIOR TO INFUSION PO ONE (08:00)
[2018-06-24] MEDS ORDERED: inFLIXimab INJECTION 600 MG in NS 190 ML IV ONE (08:30)
[2018-06-24 10:33] VITALS: BP 136/65
== END 2018-06-24 10:35 | disposition home or self-care (01) ==
LOC: M INFU 07:41
PROVIDERS: ATTEND Internal Medicine
DX: K50.10 Crohn's disease of large intestine without complications (principal); Z88.2 Allergy status to sulfonamides; Z88.5 Allergy status to narcotic agent; Z88.8 Allergy status to other drugs, medicaments and biological substances
CPT/HCPCS: 96413; 96415; J1745

== ENCOUNTER → 2018-08-02 | Outpatient (REF) | payer MEDICARE ==
[~2018-08-02] MED LIST changes: -ASPI1TAB PO; +ASPI81TA26 PO; +CRES10TA PO; -CRES10TA32 PO; +HYOS0.1256 SL; -HYOS125TA SL; +METO-745 OR; -PRAD150C PO; +PRAD150C6 PO; -TOPR100T OR
[2018-08-02 12:03] LABS: AMORPHOUS SEDIMENT SMALL (NEGATIVE); APPEARANCE, URINE HAZY (CLEAR); BACTERIA, URINE AUTO 1+ (NEGATIVE); BILIRUBIN, URINE AUTO NEGATIVE (NEGATIVE); BLOOD, URINE BLOOD NEGATIVE (NEGATIVE); COLOR, URINE AMBER (YELLOW); GLUCOSE, URINE (UA) AUTO NEGATIVE (NEGATIVE); KETONE, URINE AUTO NEGATIVE (NEGATIVE); LEUKOCYTE ESTERASE, URINE AUTO 2+ (NEGATIVE); NITRITE, URINE AUTO NEGATIVE (NEGATIVE); PROTEIN, URINE AUTO NEGATIVE (NEGATIVE); RBC, URINE AUTO 10 /HPF (0-3); SQUAMOUS EPITHELIAL CELL UR AU 6 /HPF (0-6); UROBILINOGEN, URINE AUTO 0.2 mg/dL (0.0-2.0); WBC, URINE AUTO 8 /HPF (0-3)
[2018-08-02 12:14] LABS: ALBUMIN 3.7 GM/DL (3.2-5.2); ALT/SGPT 22 U/L (12-78); BILIRUBIN,TOTAL 0.3 MG/DL (0.2-1.0); BLOOD UREA NITROGEN 12 MG/DL (7-18); CARBON DIOXIDE LEVEL 32 MEQ/L (21-32); CHLORIDE LEVEL 100 MEQ/L (98-107); CPK CREATINE PHOSPHOKINASE 37 U/L (26-192); FERRITIN 106 NG/ML (8-252); FREE T4 1.27 NG/DL (0.76-1.46); GLOMERULAR FILTRATION RATE > 60.0 (>39); GLUCOSE, FASTING 124 MG/DL (70-100); IRON (FE) 61 UG/DL (50-170); PERCENT SATURATION 22.4 % (13.2-45.0); POTASSIUM SERUM 4.6 MEQ/L (3.5-5.1); SODIUM LEVEL 138 MEQ/L (136-145); TOTAL IRON BINDING CAPACITY 272 UG/DL (250-450); TOTAL PROTEIN 7.3 GM/DL (6.4-8.2)
[2018-08-02 12:15] LABS: PTH INTACT 27.6 PG/ML (18.5-88.0); TOTAL 25(OH) VITAMIN D 40.1 NG/ML (30.0-100.0)
[2018-08-02 12:16] LABS: VITAMIN B12 LEVEL 1471 PG/ML (247-911)
[2018-08-02 12:30] LABS: HEMOGLOBIN A1c 6.3 %
[2018-08-02 12:37] LABS: CREATININE, URINE 93.1 MG/DL
== END ==
LOC: M SFHCPLAZ 08:48
PROVIDERS: ATTEND Family Medicine
DX: E11.9 Type 2 diabetes mellitus without complications (principal); E78.5 Hyperlipidemia, unspecified; D50.9 Iron deficiency anemia, unspecified; E03.9 Hypothyroidism, unspecified; E55.9 Vitamin D deficiency, unspecified; E53.8 Deficiency of other specified B group vitamins

== ENCOUNTER → 2018-09-10 | Outpatient (CLI) | payer MEDICARE | LOC: M SMT 13:46 | PROVIDERS: ATTEND Internal Medicine Gastroenterology | DX: K50.10 Crohn's disease of large intestine without complications (principal); R19.7 Diarrhea, unspecified; K21.9 Gastro-esophageal reflux disease without esophagitis; K75.81 Nonalcoholic steatohepatitis (NASH) ==

== ENCOUNTER → 2018-09-13 | Outpatient (CLI) | payer MEDICARE ==
--- NOTE | 2018-09-17 23:13 | SLEEPHOME ---
DATE OF PROCEDURE: 09/13/2018 ORDERED BY: Dr. Ralph Diagnostic home sleep testing was performed due to concern for the obstructive sleep apnea syndrome. For testing a nocturnal T3 respiratory monitoring device was used. Continuous record was made of pulse, oxygen saturation, airflow, chest, abdominal strain and body position. 9 hours and 59 minutes of data were reviewed. There were 8 hours and 41 minutes marked as time in bed. During the interval marked time in bed, there were 154 respiratory events identified of 10 seconds in duration or greater for a respiratory event index of 17.7. The events were primarily obstructive, though 37 mixed apneas were identified. Baseline pulse rate 69 beats per minute, pulse rate ranged 33-153. Baseline saturations 89%. Saturations fell to 77% and testing was performed in both the supine and nonsupine positions. IMPRESSION: Abnormal home sleep testing with repetitive respiratory events and oxygen desaturation to 77% with a respiratory event index of 17.7 is consistent with the obstructive sleep apnea syndrome. RECOMMENDATIONS: The patient should be encouraged to undergo a formal sleep evaluation and in laboratory pressure titration.
== END ==
LOC: M SLEEP HO 11:40
PROVIDERS: ATTEND Family Medicine
DX: G47.30 Sleep apnea, unspecified (principal)

== ENCOUNTER 2018-09-16 07:58 | Outpatient (CLI) | payer MEDICARE ==
[2018-09-16 08:00] VITALS: BP 149/66
[2018-09-16] MEDS ORDERED: FILTER 1.2 MICRON (ADULT TPN/MANNITOL/REMICADE) XX ONE (08:15)
[2018-09-16] MEDS ORDERED: NS 1,000 ML IV SCH (08:15)
[2018-09-16] MEDS ORDERED: ACETAMINOPHEN 650MG PO PRIOR TO INFUSION PO ONE (08:30)
[2018-09-16] MEDS ORDERED: diphenhydrAMINE 50MG PO PRIOR TO INFUSION PO ONE (08:30)
[2018-09-16 09:00] VITALS: BP 137/64
[2018-09-16] MEDS ORDERED: inFLIXimab INJECTION 600 MG in NS 190 ML IV ONE (09:00)
[2018-09-16 09:45] VITALS: BP 133/60
[2018-09-16 10:00] VITALS: BP 143/61
== END 2018-09-16 10:00 | disposition home or self-care (01) ==
LOC: M INFU 07:58
PROVIDERS: ATTEND Internal Medicine
DX: K50.10 Crohn's disease of large intestine without complications (principal); Z88.2 Allergy status to sulfonamides; Z88.5 Allergy status to narcotic agent; Z88.8 Allergy status to other drugs, medicaments and biological substances
CPT/HCPCS: 96413; J1745

== ENCOUNTER → 2018-09-17 | Outpatient (CLI) | payer MEDICARE ==
--- NOTE | 2018-09-17 10:28 | REPMRS ---
Patient History The patient states she has not had a clinical breast exam in over a year. Patient is postmenopausal. Family history of colorectal cancer at age 50 or over in maternal aunt, prostate cancer at age 50 or over in father, colorectal cancer at age 50 or over in maternal cousin, colorectal cancer under age 50 in maternal unspecified relative. Took estrogen for 10 years. 3D TOMOSYNTHESIS WAS PERFORMED. Digital Woman Screen Mammo: September 17, 2018 - Exam #: [id number] Bilateral CC and MLO view(s) were taken. Technologist: Kamini Carpenter, Technologist Prior study comparison: August 08, 2017, digital woman screen mammo performed at [facility]. July 27, 2016, digital woman screen mammo performed at [facility]. FINDINGS: There are scattered fibroglandular densities. There is a fairly symmetric fibroglandular pattern in both breasts. There has been no interval development of masses, areas of architectural distortion or clusters of microcalcifications typical of malignancy. Assessment: BI-RADS/ACR category 2 mammogram. Benign Findings. Recommendation Routine screening mammogram of both breasts in 1 year (for women over age 40). This mammogram was interpreted with the aid of an FDA-approved computer-aided dectection system. Electronically Signed By: Pietro Srinivasan MD 09/17/18 [id number]
== END ==
LOC: M WHC 08:48
PROVIDERS: ATTEND Family Medicine
DX: Z12.31 Encounter for screening mammogram for malignant neoplasm of breast (principal); Z78.0 Asymptomatic menopausal state

== ENCOUNTER → 2018-09-20 | Outpatient (CLI) | payer MEDICARE ==
[~2018-09-20] MED LIST changes: +BREO1INH3 PO
--- NOTE | 2018-09-20 09:33 | REP ---
Clinical: Non alcoholic hepatic steatosis. Technique: Srinivasan scale ultrasound using curved array transducer. Findings: The liver is diffusely increased echogenicity with poor through transmission and consistent with fatty infiltration. The pancreas is incompletely evaluated due to interposed bowel gas and poor through transmission but visualized portions appear normal. The gallbladder has been removed. Mild compensatory extrahepatic biliary ductal dilatation is appreciated with the common bile duct measures 10.5 mm diameter. The right kidney is normal in reniform shape without hydronephrosis and measures 10.5 x 6.0 x 4.4 cm. No ascites. Visualized portions of the abdominal aorta normal. Impression: Diffuse hepatic steatosis. Electronically Signed by Miguel A Ruelas MD 09/20/2018 09:24 A
== END ==
LOC: M RAD 08:12
PROVIDERS: ATTEND Internal Medicine Gastroenterology
DX: K50.10 Crohn's disease of large intestine without complications (principal); R19.7 Diarrhea, unspecified; K21.9 Gastro-esophageal reflux disease without esophagitis; K75.81 Nonalcoholic steatohepatitis (NASH)
CPT/HCPCS: 76705; G0463

== ENCOUNTER 2018-10-28 07:45 | Outpatient (CLI) | payer MEDICARE ==
[~2018-10-28] VITALS: Ht 162.6 cm; Wt 113.6 kg
[2018-10-28 07:45] VITALS: BP 140/72
[~2018-10-28 07:45] MED LIST changes: -BREO1INH3 PO
[2018-10-28] MEDS ORDERED: diphenhydrAMINE 50MG PO PRIOR TO INFUSION PO ONE (08:45)
[2018-10-28] MEDS ORDERED: inFLIXimab INJECTION 600 MG in NS 190 ML IV ONE (08:45)
[2018-10-28] MEDS ORDERED: FILTER 1.2 MICRON (ADULT TPN/MANNITOL/REMICADE) XX ONE (08:45)
[2018-10-28] MEDS ORDERED: NS 1,000 ML IV SCH (08:45)
[2018-10-28] MEDS ORDERED: ACETAMINOPHEN 650MG PO PRIOR TO INFUSION PO ONE (08:45)
== END 2018-10-28 10:30 | disposition home or self-care (01) ==
LOC: M INFU 07:45
PROVIDERS: ATTEND Internal Medicine Gastroenterology
DX: K50.90 Crohn's disease, unspecified, without complications (principal); Z88.5 Allergy status to narcotic agent; Z88.2 Allergy status to sulfonamides; Z88.8 Allergy status to other drugs, medicaments and biological substances
CPT/HCPCS: 96413; J1745

== ENCOUNTER → 2018-11-07 | Outpatient (CLI) | payer MEDICARE ==
--- NOTE | 2018-11-07 16:00 | REP ---
Chest x-ray: Two views. History: Cough. Comparison chest x-ray is from December 09, 2015. Findings: Granulomatous lymph node calcifications are visible in the left axilla unchanged. The lungs are symmetrically aerated and clear. The pleural angles are sharp. The heart is near the upper range of normal in size with cardiothoracic ratio measuring 47.2%. The aorta is calcific and somewhat tortuous. Pulmonary vasculature is not increased. There are old post-traumatic changes in the right proximal humerus and shoulder, and there are postsurgical changes in the left proximal humerus. There are degenerative changes in the thoracic spine. Surgical clips are noted in the upper abdomen bilaterally. Impression: No active disease. Electronically Signed by Anatoly Ken MD 11/07/2018 05:13 P
== END ==
LOC: M RAD 09:20
PROVIDERS: ATTEND Internal Medicine Gastroenterology
DX: R05 Cough (principal)

== ENCOUNTER → 2018-11-12 | Outpatient (CLI) | payer MEDICARE ==
[~2018-11-12] MED LIST changes: +BREO1INH3 PO; +INFL10VL IV; -OMEP40CA2 PO; +OMEP40CA97 PO
--- NOTE | 2018-11-14 18:44 | SLEEPCENT ---
DATE OF PROCEDURE: 2018 ORDERED BY: TYLER Anderson Nocturnal polysomnography was performed for evaluation of sleep physiology in this patient with a clinical diagnosis of obstructive sleep apnea syndrome supported by home testing. 7 hours and 49 minutes of data were reviewed. There were 279 minutes of sleep identified. Sleep latency was normal at 32 minutes. Rapid eye movement (REM) latency was prolonged at 269 minutes. Sleep architecture was fragmented with only one REM cycle. Overall sleep efficiency was 60.1%. The electrocardiogram showed a sinus rhythm with an average heart rate of 74 beats per minute. Rate ranged 45-90. EEG showed essentially normal waveforms for awake and sleep. No focal events were seen. There were 186 respiratory events identified of 10 seconds in duration or greater for an apnea-hypopnea index of 40. The events were primarily obstructive, not exclusive to sleep stage nor body posture. Arousals from respiratory events occurred 17.4 times per hour and oxygen desaturations were seen into the 70s. There was some activity in the limb EMG leads, but limb movement arousals were few at 3.7 per hour. IMPRESSION: Severe obstructive sleep apnea syndrome (G47.33). Apnea-hypopnea index 40. RECOMMENDATIONS: The patient should be encouraged to return to the sleep disorder center for pressure therapy. In the interim alcohol and sedative avoidance should be practiced and caution exercised during the operation of motor vehicles.
== END ==
LOC: M SLEEP 19:49
PROVIDERS: ATTEND Nurse Practitioner Family
DX: G47.33 Obstructive sleep apnea (adult) (pediatric) (principal)

== ENCOUNTER → 2018-11-25 | Outpatient (REF) | payer MEDICARE ==
[~2018-11-25] MED LIST changes: -BREO1INH3 PO; -INFL10VL IV; +OMEP40CA2 PO; -OMEP40CA97 PO
[2018-11-25 10:06] LABS: BASO # 0.1 10^3/uL (0.0-0.2); EOS # 0.2 10^3/uL (0.0-0.50); EOS % 2.9 % (0.0-3.0); HEMATOCRIT 35.8 % (36.0-47.0); HEMOGLOBIN 11.4 g/dl (12.0-15.5); LYMPH # 1.9 10^3/uL (1.5-4.5); LYMPH % 26.5 % (24.0-44.0); MEAN CORPUSCULAR HGB CONC 31.8 g/dl (32.0-36.5); MEAN CORPUSCULAR VOLUME 94.2 fl (80.0-96.0); MONO # 0.8 10^3/uL (0.0-0.8); PLATELET COUNT, AUTOMATED 251 10^3/uL (150-450)
[2018-11-25 10:31] LABS: HEMOGLOBIN A1c 6.1 %
[2018-11-25 10:37] LABS: C REACTIVE PROTEIN QUANTITATIV 0.43 MG/DL (0.00-0.30); CHOLESTEROL RISK RATIO 2.854 (<5); FREE T4 1.07 NG/DL (0.76-1.46); THYROID STIMULATING HORMONE 3.8 uIU/ML (0.358-3.740)
== END ==
LOC: M SFHCPLAZ 08:31
PROVIDERS: ATTEND Family Medicine
DX: D50.9 Iron deficiency anemia, unspecified (principal); E11.9 Type 2 diabetes mellitus without complications; E03.9 Hypothyroidism, unspecified

== ENCOUNTER 2018-12-10 08:41 | Outpatient (CLI) | payer MEDICARE ==
[~2018-12-10] VITALS: Ht 162.6 cm; Wt 113.4 kg
[2018-12-10 08:45] VITALS: BP 164/72
[2018-12-10] MEDS ORDERED: FILTER 1.2 MICRON (ADULT TPN/MANNITOL/REMICADE) XX ONE (09:00)
[2018-12-10] MEDS ORDERED: NS 1,000 ML IV SCH (09:00)
[2018-12-10] MEDS ORDERED: ACETAMINOPHEN 650MG PO PRIOR TO INFUSION PO ONE (09:00)
[2018-12-10] MEDS ORDERED: diphenhydrAMINE 50MG PO PRIOR TO INFUSION PO ONE (09:00)
[2018-12-10] MEDS ORDERED: inFLIXimab INJECTION 600 MG in NS 190 ML IV ONE (09:00)
[2018-12-10] MEDS ORDERED: BREO1INH3 PO (09:11)
== END 2018-12-10 10:50 | disposition home or self-care (01) ==
LOC: M INFU 08:41
PROVIDERS: ATTEND Internal Medicine Gastroenterology
DX: K50.90 Crohn's disease, unspecified, without complications (principal); Z88.2 Allergy status to sulfonamides; Z88.5 Allergy status to narcotic agent; Z88.8 Allergy status to other drugs, medicaments and biological substances
CPT/HCPCS: 96413; J1745

== ENCOUNTER → 2018-12-11 | Outpatient (CLI) | payer MEDICARE ==
[~2018-12-11] MED LIST changes: +BREO1INH3 PO
--- NOTE | 2018-12-17 12:53 | SLEEPCENT ---
DATE OF STUDY: 12/11/2018 ORDERING PROVIDER: TYLER Anderson Nocturnal polysomnography was performed for the titration of pressure therapy in this patient with obstructive sleep apnea syndrome. Apnea-hypopnea index of 40. For testing, a ResMed AirFit F20 full face mask of medium size was used. 4 cm of water pressure applied to the circuit, and the lights were extinguished. 7 hours and 27 minutes of data were reviewed. There were 294 minutes of sleep identified. Sleep latency was normal at 28 minutes. Rapid eye movement (REM) latency was delayed at 289 minutes. Sleep architecture improved late in the study with optimal pressure therapy. There was only one REM cycle. Overall sleep efficiency 66.9%. The patient's electrocardiogram showed a sinus rhythm with an average heart rate of 76 beats per minute. Electroencephalogram (EEG) showed normal waveforms for awake and sleep. Respiratory events were reasonably well palliated with continuous positive airway pressure (CPAP) at a pressure of +11. There were some mild hypopneic events, but oxygen saturations remained within acceptable range. Other measures of sleep physiology identified some limb activity on this occasion. The limb movement arousal index was 9.2. IMPRESSION: Obstructive sleep apnea syndrome (G47.33) RECOMMENDATION: Nightly use of pressure therapy, 11 cm of water.
== END ==
LOC: M SLEEP 19:35
PROVIDERS: ATTEND Nurse Practitioner Family
DX: G47.33 Obstructive sleep apnea (adult) (pediatric) (principal)

== ENCOUNTER 2019-01-21 07:44 | Outpatient (CLI) | payer MEDICARE ==
[~2019-01-21] VITALS: Ht 162.6 cm; Wt 113.4 kg
[2019-01-21 07:50] VITALS: BP 143/86
[2019-01-21] MEDS ORDERED: inFLIXimab INJECTION 600 MG in NS 190 ML IV ONE (08:30)
[2019-01-21] MEDS ORDERED: NS 1,000 ML IV SCH (08:30)
[2019-01-21] MEDS ORDERED: FILTER 1.2 MICRON (ADULT TPN/MANNITOL/REMICADE) XX ONE (08:30)
[2019-01-21] MEDS ORDERED: ACETAMINOPHEN 650MG PO PRIOR TO INFUSION PO ONE (08:30)
[2019-01-21] MEDS ORDERED: diphenhydrAMINE 50MG PO PRIOR TO INFUSION PO ONE (08:30)
[2019-01-21 10:00] VITALS: BP 113/54
== END 2019-01-21 10:00 | disposition home or self-care (01) ==
LOC: M INFU 07:44
PROVIDERS: ATTEND Internal Medicine Gastroenterology
DX: K50.90 Crohn's disease, unspecified, without complications (principal); Z88.5 Allergy status to narcotic agent; Z88.2 Allergy status to sulfonamides; Z88.8 Allergy status to other drugs, medicaments and biological substances; Z79.899 Other long term (current) drug therapy
CPT/HCPCS: 96413; J1745

== ENCOUNTER → 2019-02-14 | Outpatient (CLI) | payer MEDICARE ==
[~2019-02-14] MED LIST changes: -OMEP40CA2 PO; +OMEP40CA97 PO
--- NOTE | 2019-02-14 10:38 | REP ---
Two-view chest: 02/15/2019. Indication: Cough. Comparison: 11/07/2018. Findings: The lungs are clear. There is no pleural effusion or pneumothorax. Cardiac silhouette is within normal limits. Calcified left axillary lymph nodes and chronic proximal right humeral deformities are stable. Impression: No acute cardiopulmonary process. Electronically Signed by Fabrizio Parra DO 02/14/2019 10:29 A
[2019-02-14 13:23] LABS: HEMATOCRIT 39.7 % (36.0-47.0); HEMOGLOBIN 12.3 g/dl (12.0-15.5); MEAN CORPUSCULAR HEMOGLOBIN 30.5 pg (27.0-33.0); MEAN CORPUSCULAR VOLUME 98.5 fl (80.0-96.0); PLATELET COUNT, AUTOMATED 273 10^3/uL (150-450); RED BLOOD COUNT 4.03 10^6/uL (4.00-5.40); WHITE BLOOD COUNT 6.5 10^3/uL (4.0-10.0)
[2019-02-14 14:02] LABS: ALT/SGPT 29 U/L (12-78); BILIRUBIN,TOTAL 0.6 MG/DL (0.2-1.0); BLOOD UREA NITROGEN 11 MG/DL (7-18); C REACTIVE PROTEIN QUANTITATIV 0.44 MG/DL (0.00-0.30); CALCIUM LEVEL 9.3 MG/DL (8.8-10.2); CARBON DIOXIDE LEVEL 29 MEQ/L (21-32); CHLORIDE LEVEL 99 MEQ/L (98-107); CREATININE FOR GFR 0.77 MG/DL (0.55-1.30); GLOMERULAR FILTRATION RATE > 60.0 (>39); GLUCOSE, FASTING 218 MG/DL (70-100); POTASSIUM SERUM 4.6 MEQ/L (3.5-5.1); SODIUM LEVEL 137 MEQ/L (136-145); TOTAL 25(OH) VITAMIN D 31.1 NG/ML (30.0-100.0); VITAMIN B12 LEVEL 902 PG/ML (247-911)
== END ==
LOC: M SMT 10:05
PROVIDERS: ATTEND Internal Medicine Gastroenterology
DX: R05 Cough (principal); E55.9 Vitamin D deficiency, unspecified; K50.919 Crohn's disease, unspecified, with unspecified complications; Z79.899 Other long term (current) drug therapy

== ENCOUNTER 2019-04-18 08:46 | Outpatient (CLI) | payer MEDICARE ==
[~2019-04-18] VITALS: Ht 162.6 cm; Wt 113.4 kg
[2019-04-18] MEDS ORDERED: ACETAMINOPHEN 650MG PO PRIOR TO INFUSION PO ONE (09:00)
[2019-04-18] MEDS ORDERED: NS 1,000 ML IV SCH (09:00)
[2019-04-18] MEDS ORDERED: diphenhydrAMINE 50MG PO PRIOR TO INFUSION PO ONE (09:00)
[2019-04-18 09:20] VITALS: BP 147/69
[2019-04-18] MEDS ORDERED: INFL10VL IV (09:48)
[2019-04-18 09:55] VITALS: BP 123/65
[2019-04-18] MEDS ORDERED: inFLIXimab INJECTION 600 MG in NS 190 ML IV ONE (10:00)
[2019-04-18 10:45] VITALS: BP 127/88
[2019-04-18 11:00] VITALS: BP 136/70
== END 2019-04-18 11:00 | disposition home or self-care (01) ==
LOC: M INFU 08:46
PROVIDERS: ATTEND Internal Medicine Gastroenterology
DX: K50.90 Crohn's disease, unspecified, without complications (principal); Z88.2 Allergy status to sulfonamides; Z88.5 Allergy status to narcotic agent; Z88.8 Allergy status to other drugs, medicaments and biological substances
CPT/HCPCS: 96413; J1745

== ENCOUNTER → 2019-04-24 | Outpatient (CLI) | payer MEDICARE ==
[~2019-04-24] MED LIST changes: +INFL10VL IV
[2019-04-24 14:15] LABS: BASO # 0.1 10^3/uL (0.0-0.2); EOS # 0.2 10^3/uL (0.0-0.5); EOS % 2.4 % (0.0-3.0); HEMATOCRIT 37.5 % (36.0-47.0); HEMOGLOBIN 11.5 g/dl (12.0-15.5); LYMPH # 2.2 10^3/uL (1.5-5.0); LYMPH % 31.3 % (24.0-44.0); MEAN CORPUSCULAR HEMOGLOBIN 29.9 pg (27.0-33.0); MEAN CORPUSCULAR HGB CONC 30.7 g/dl (32.0-36.5); MEAN CORPUSCULAR VOLUME 97.4 fl (80.0-96.0); MONO # 0.8 10^3/uL (0.0-0.8); MONO % 11.5 % (0.0-5.0); NEUTROPHILS # 3.8 10^3/uL (1.5-8.5); NEUTROPHILS % 53.4 % (36.0-66.0); PLATELET COUNT, AUTOMATED 299 10^3/uL (150-450); RED BLOOD COUNT 3.85 10^6/uL (4.00-5.40)
[2019-04-24 14:19] LABS: HEMOGLOBIN 11.5 g/dl (12.0-15.5); MEAN CORPUSCULAR HEMOGLOBIN 29.5 pg (27.0-33.0); MEAN CORPUSCULAR HGB CONC 30.3 g/dl (32.0-36.5); MEAN CORPUSCULAR VOLUME 97.4 fl (80.0-96.0); PLATELET COUNT, AUTOMATED 289 10^3/uL (150-450); WHITE BLOOD COUNT 7.2 10^3/uL (4.0-10.0)
[2019-04-24 14:27] LABS: INR 1.13; PROTHROMBIN TIME 14.2 SECONDS (11.8-14.0)
[2019-04-24 14:29] LABS: APPEARANCE, URINE MANUAL HAZY (CLEAR); COLOR, URINE MANUAL YELLOW (YELLOW)
[2019-04-24 14:30] LABS: BILIRUBIN, URINE MANUAL NEGATIVE (NEGATIVE); BLOOD URINE MANUAL NEGATIVE (NEGATIVE); GLUCOSE, URINE (UA) MANUAL NEGATIVE (NEGATIVE); KETONE, URINE MANUAL NEGATIVE (NEGATIVE); LEUKOCYTE ESTERASE, URINE MAN TR (NEGATIVE); NITRITE, URINE MANUAL NEGATIVE (NEGATIVE); PROTEIN, URINE MANUAL TR mg/dL (NEGATIVE); SPECIFIC GRAVITY,URINE MANUAL 1.015 (1.002-1.035); UROBILINOGEN, URINE MANUAL NORMAL (NORMAL)
[2019-04-24 14:44] LABS: RBC, URINE 0-1 /hpf (0-3)
[2019-04-24 14:45] LABS: BACTERIA, URINE SMALL AMOUNT; CALCIUM OXALATE CRYSTALS,URINE LARGE AMOUNT /hpf; HYALINE CAST, URINE NONE SEEN /lpf (0-1); MUCUS, URINE SMALL AMOUNT (NEGATIVE); RENAL EPITHELIAL CELLS, URINE SMALL AMOUNT /hpf; SQUAMOUS EPITHELIAL CELL URINE SMALL AMOUNT /hpf (SMALL AMT)
[2019-04-24 14:56] LABS: ALBUMIN 3.8 GM/DL (3.2-5.2); ALT/SGPT 21 U/L (12-78); BILIRUBIN,TOTAL 0.4 MG/DL (0.2-1.0); BLOOD UREA NITROGEN 14 MG/DL (7-18); CALCIUM LEVEL 8.9 MG/DL (8.8-10.2); CARBON DIOXIDE LEVEL 27 MEQ/L (21-32); CHLORIDE LEVEL 103 MEQ/L (98-107); CREATININE FOR GFR 0.67 MG/DL (0.55-1.30); FREE T4 1.19 NG/DL (0.76-1.46); GLOMERULAR FILTRATION RATE > 60.0 (>39); GLUCOSE, FASTING 152 MG/DL (70-100); MAU/CREAT RATIO 83.7 MCG/MG (0.0-30.0); POTASSIUM SERUM 4.4 MEQ/L (3.5-5.1); SODIUM LEVEL 138 MEQ/L (136-145); TOTAL PROTEIN 7.6 GM/DL (6.4-8.2)
[2019-04-24 14:57] LABS: ALBUMIN 3.8 GM/DL (3.2-5.2); ALT/SGPT 18 U/L (12-78); BILIRUBIN,TOTAL 0.4 MG/DL (0.2-1.0); BLOOD UREA NITROGEN 14 MG/DL (7-18); C REACTIVE PROTEIN QUANTITATIV 0.67 MG/DL (0.00-0.30); CALCIUM LEVEL 9.1 MG/DL (8.8-10.2); CARBON DIOXIDE LEVEL 28 MEQ/L (21-32); CHLORIDE LEVEL 101 MEQ/L (98-107); CREATININE FOR GFR 0.68 MG/DL (0.55-1.30); GLOMERULAR FILTRATION RATE > 60.0 (>39); GLUCOSE, FASTING 153 MG/DL (70-100); MAGNESIUM LEVEL 2.4 MG/DL (1.8-2.4); POTASSIUM SERUM 4.3 MEQ/L (3.5-5.1); SODIUM LEVEL 137 MEQ/L (136-145); TOTAL 25(OH) VITAMIN D 35.9 NG/ML (30.0-100.0); TOTAL PROTEIN 7.6 GM/DL (6.4-8.2)
[2019-04-24 14:58] LABS: VITAMIN B12 LEVEL 973 PG/ML (247-911)
[2019-04-24 15:46] LABS: HEMOGLOBIN A1c 6.5 %
== END ==
LOC: M PLALAB 08:48
PROVIDERS: ATTEND Family Medicine
DX: J45.20 Mild intermittent asthma, uncomplicated (principal); E03.9 Hypothyroidism, unspecified; E11.9 Type 2 diabetes mellitus without complications; K50.10 Crohn's disease of large intestine without complications; R13.10 Dysphagia, unspecified; K21.9 Gastro-esophageal reflux disease without esophagitis; K75.81 Nonalcoholic steatohepatitis (NASH); Z79.82 Long term (current) use of aspirin; Z79.899 Other long term (current) drug therapy

== ENCOUNTER → 2019-05-13 | Outpatient (CLI) | payer MEDICARE ==
--- NOTE | 2019-05-13 10:26 | REPPI ---
INDICATION: Recurrent sinusitis PROCEDURE: Plain film study of the sinuses includes AP lateral and oblique views including Rivas view. COMPARISON STUDIES: No prior similar FINDINGS: Sinuses appear clear. No fluid levels are seen. Orbits appear unremarkable. CONCLUSION: No definite findings to correlate with sinusitis. Consider CT of the sinuses for further evaluation as clinically indicated. Electronically Signed by Figueroa Staton MD 05/13/2019 10:18 A
== END ==
LOC: M PLAIMG 09:49
PROVIDERS: ATTEND Family Medicine
DX: J32.9 Chronic sinusitis, unspecified (principal)

== ENCOUNTER → 2019-05-20 | Outpatient (CLI) | payer MEDICARE ==
--- NOTE | 2019-05-20 09:36 | REP ---
Abdominal right upper quadrant ultrasound: Comparison is 09/20/2018. The the patient has a cholecystectomy. There is no intrahepatic or extrahepatic biliary duct dilatation. The common biliary duct measures 12 mm in diameter. This is upper normal. The hepatic parenchyma is markedly echogenic diffusely compatible with the clinical history of hepato steatosis. No focal hepatic masses are identified. The pancreas is obscured by bowel gas. The right kidney is normal size measuring 11.8 5.1 x 5.0 cm. There is no right renal calculus or hydronephrosis. There are no right renal solid or cystic masses. There is no right upper quadrant ascites. Impression: Diffuse hepato steatosis, unchanged from the prior study. No hepatic masses are identified. There is no ascites. Cholecystectomy. Electronically Signed by Pietro Whatley MD 05/20/2019 09:28 A
== END ==
LOC: M RAD 08:51
PROVIDERS: ATTEND Family Medicine
DX: K76.0 Fatty (change of) liver, not elsewhere classified (principal)

== ENCOUNTER 2019-05-30 08:15 | Outpatient (CLI) | payer MEDICARE ==
[~2019-05-30] VITALS: Ht 162.6 cm; Wt 113.4 kg
[2019-05-30] MEDS ORDERED: ACETAMINOPHEN 650MG PO PRIOR TO INFUSION PO ONE (08:30)
[2019-05-30] MEDS ORDERED: NS 1,000 ML IV SCH (08:30)
[2019-05-30] MEDS ORDERED: diphenhydrAMINE 50MG PO PRIOR TO INFUSION PO ONE (08:30)
[2019-05-30] MEDS ORDERED: inFLIXimab INJECTION 600 MG in NS 190 ML IV ONE (09:00)
== END 2019-05-30 10:55 | disposition home or self-care (01) ==
LOC: M INFU 08:15
PROVIDERS: ATTEND Internal Medicine Gastroenterology
DX: K50.90 Crohn's disease, unspecified, without complications (principal); Z88.2 Allergy status to sulfonamides; Z88.5 Allergy status to narcotic agent; Z88.8 Allergy status to other drugs, medicaments and biological substances
CPT/HCPCS: 96413; J1745

== ENCOUNTER 2019-07-25 10:04 | Outpatient (CLI) | payer MEDICARE ==
[~2019-07-25] VITALS: Ht 162.6 cm; Wt 113.6 kg
[2019-07-25 10:40] VITALS: BP 139/68
[2019-07-25] MEDS ORDERED: inFLIXimab INJECTION 600 MG in NS 190 ML IV ONE (11:00)
[2019-07-25] MEDS ORDERED: NS 1,000 ML IV SCH (11:00)
[2019-07-25] MEDS ORDERED: ACETAMINOPHEN 650MG PO PRIOR TO INFUSION PO ONE (11:00)
[2019-07-25] MEDS ORDERED: diphenhydrAMINE 50MG PO PRIOR TO INFUSION PO ONE (11:00)
[2019-07-25 12:52] VITALS: BP 113/72
== END 2019-07-25 12:50 | disposition home or self-care (01) ==
LOC: M INFU 10:04
PROVIDERS: ATTEND Internal Medicine Gastroenterology
DX: K50.90 Crohn's disease, unspecified, without complications (principal); Z88.2 Allergy status to sulfonamides; Z88.5 Allergy status to narcotic agent; Z88.8 Allergy status to other drugs, medicaments and biological substances
CPT/HCPCS: 96413; 96415; J1745

== ENCOUNTER → 2019-08-09 | Outpatient (REF) | payer MEDICARE | LOC: M LAB 10:38 | PROVIDERS: ATTEND Physician Assistant | DX: J20.9 Acute bronchitis, unspecified (principal) | CPT/HCPCS: 87486; 87581; 87633; 87798; U0002 ==

== ENCOUNTER 2019-09-05 08:16 | Outpatient (CLI) | payer MEDICARE ==
[~2019-09-05] VITALS: Ht 162.6 cm; Wt 113.6 kg
[~2019-09-05 08:16] MED LIST changes: +CYCL-707 PO; -CYCL10TA PO
[2019-09-05 08:20] VITALS: BP 183/74
[2019-09-05] MEDS ORDERED: ACETAMINOPHEN 650MG ER TAB (TYLENOL ARTHRITIS) PO ONE (08:30)
[2019-09-05] MEDS ORDERED: diphenhydrAMINE 25MG CAP PO ONE ×2 (08:30)
[2019-09-05] MEDS ORDERED: NS 1,000 ML IV SCH (08:30)
[2019-09-05] MEDS ORDERED: inFLIXimab INJECTION 600 MG in NS 190 ML IV ONE (08:30)
[2019-09-05 08:45] VITALS: BP_SYST 142; BP_SYST 183; BP_DIAS 68; BP_DIAS 74
[2019-09-05] MEDS ORDERED: ACETAMINOPHEN 650MG PO PRIOR TO INFUSION PO ONE (08:45)
[2019-09-05 09:45] VITALS: BP 141/73
[2019-09-05 10:21] VITALS: BP 141/73
[2019-09-05 10:30] VITALS: BP 168/86
== END 2019-09-05 10:30 | disposition home or self-care (01) ==
LOC: M INFU 08:16
PROVIDERS: ATTEND Internal Medicine Gastroenterology
DX: K50.90 Crohn's disease, unspecified, without complications (principal); Z88.2 Allergy status to sulfonamides; Z88.8 Allergy status to other drugs, medicaments and biological substances
CPT/HCPCS: 96413; 96415; J1745

== ENCOUNTER → 2019-09-12 | Outpatient (REF) | payer MEDICARE ==
[2019-09-12 10:52] LABS: BASO # 0.1 10^3/uL (0.0-0.2); BASO % 0.6 % (0.0-1.0); EOS # 0.1 10^3/uL (0.0-0.5); EOS % 1.3 % (0.0-3.0); HEMATOCRIT 37.2 % (36.0-47.0); HEMOGLOBIN 11.8 g/dl (12.0-15.5); LYMPH # 1.9 10^3/uL (1.5-5.0); LYMPH % 24.9 % (24.0-44.0); MEAN CORPUSCULAR HEMOGLOBIN 30.3 pg (27.0-33.0); MEAN CORPUSCULAR HGB CONC 31.7 g/dl (32.0-36.5); MEAN CORPUSCULAR VOLUME 95.4 fl (80.0-96.0); MONO % 12.5 % (0.0-5.0); NEUTROPHILS # 4.7 10^3/uL (1.5-8.5); NEUTROPHILS % 60.2 % (36.0-66.0); PLATELET COUNT, AUTOMATED 269 10^3/uL (150-450); WHITE BLOOD COUNT 7.8 10^3/uL (4.0-10.0)
[2019-09-12 11:11] LABS: HEMOGLOBIN A1c 7.1 %
[2019-09-12 11:22] LABS: CHOLESTEROL RISK RATIO 2.893 (<5); FREE T4 1.27 NG/DL (0.76-1.46); MALB URINE SIEMENS 97.4 MG/L; MAU/CREAT RATIO 51.2 MCG/MG (0.0-30.0); THYROID STIMULATING HORMONE 4.1 uIU/ML (0.358-3.740); TOTAL PROTEIN,RANDOM URINE 59.1 MG/DL (0.0-12.0)
== END ==
LOC: M SFHCPLAZ 08:47
PROVIDERS: ATTEND Family Medicine
DX: D50.9 Iron deficiency anemia, unspecified (principal); E11.9 Type 2 diabetes mellitus without complications

== ENCOUNTER 2019-10-17 11:45 | Outpatient (CLI) | payer MEDICARE ==
[~2019-10-17] VITALS: Ht 161.3 cm; Wt 113.6 kg
[2019-10-17] MEDS ORDERED: ACETAMINOPHEN 650MG PO PRIOR TO INFUSION PO ONE (12:00)
[2019-10-17] MEDS ORDERED: inFLIXimab INJECTION 600 MG in NS 190 ML IV ONE (12:00)
[2019-10-17] MEDS ORDERED: diphenhydrAMINE 50MG PO PRIOR TO INFUSION PO ONE (12:00)
[2019-10-17] MEDS ORDERED: NS 1,000 ML IV SCH (12:00)
[2019-10-17 12:25] VITALS: BP 148/85
[2019-10-17 12:40] VITALS: BP 153/67
[2019-10-17 13:35] VITALS: BP 153/68
== END 2019-10-17 13:45 | disposition home or self-care (01) ==
LOC: M INFU 11:45
PROVIDERS: ATTEND Internal Medicine Gastroenterology
DX: K50.90 Crohn's disease, unspecified, without complications (principal); Z88.2 Allergy status to sulfonamides; Z88.5 Allergy status to narcotic agent; Z88.8 Allergy status to other drugs, medicaments and biological substances
CPT/HCPCS: 96413; J1745

== ENCOUNTER → 2019-10-27 | Outpatient (CLI) | payer MEDICARE ==
--- NOTE | 2019-10-27 13:43 | REPMRS ---
Patient History The patient states she has not had a clinical breast exam in over a year. Family history of colorectal cancer at age 50 or over in maternal aunt, prostate cancer at age 50 or over in father, colorectal cancer at age 50 or over in maternal cousin, colorectal cancer under age 50 in maternal unspecified relative. Took estrogen for 10 years. Digital Woman Screen Mammo: October 27, 2019 - Exam #: [id number] Bilateral CC and MLO view(s) were taken. Technologist: Merly Flores, Technologist Prior study comparison: September 17, 2018, bilateral digital woman screen mammo performed at [facility]. August 08, 2017, digital woman screen mammo performed at [facility]. July 27, 2016, digital woman screen mammo performed at [facility]. FINDINGS: There are scattered fibroglandular densities. The Volpara volumetric breast density category is:B. There has been no change in the appearance of the mammogram from the prior studies. There is a mild amount of scattered fibroglandular density which is fairly symmetric. There is no interval development of dominant mass, architectural distortion, or grouped microcalcification suggestive of malignancy. 3-D tomosynthesis shows no additional findings. Assessment: BI-RADS/ACR category 1 mammogram. Negative Mammogram. Recommendation Routine screening mammogram of both breasts in 1 year (for women over age 40). This patient's Lifetime Breast Cancer Risk is estimated at 2.4 %. This mammogram was interpreted with the aid of an FDA-approved computer-aided dectection system. Electronically Signed By: Joe Ken MD 10/27/19 [id number]
--- NOTE | 2019-10-31 13:54 | DEXA ---
AP SPINE L1 - L4 1.221 0.2 1.9 LT FEMUR TOTAL 0.886 -1.0 0.7 LT NECK 1.119 0.6 2.4 RT FEMUR TOTAL 0.828 -1.4 0.2 RT NECK 0.820 -1.6 0.3 TOTAL BODY TOTAL OTHER COMMENTS: Normal bone densitometry of the spine. There is low bone density of the hips. The density of the spine has increased 0.4% since the initial exam on 10/15/2002. The decreased. -2.8% since the most recent exam on 07/27/2016. The density of the left hip has increased 1.4% since the initial exam on 10/15/2002. The density of the left hip has increased 1.3% since the most recent exam on 07/27/2016. The density of the right hip has decreased -5.3% since the initial exam on 10/15/2002. The density of the right hip has decreased 2.4% since the most recent exam on 07/27/2016. FOLLOW-UP: Recommendation for the next bone density exam: 2 years. CHID
== END ==
LOC: M WHC 12:11
PROVIDERS: ATTEND Family Medicine
DX: Z12.31 Encounter for screening mammogram for malignant neoplasm of breast (principal); M85.89 Other specified disorders of bone density and structure, multiple sites; Z80.0 Family history of malignant neoplasm of digestive organs

== ENCOUNTER → 2019-11-12 | Outpatient (CLI) | payer MEDICARE ==
[~2019-11-12] MED LIST changes: +ALVI12CA PO
[2019-11-12 12:59] LABS: HEMOGLOBIN 12.2 g/dl (12.0-15.5); MEAN CORPUSCULAR HEMOGLOBIN 30.4 pg (27.0-33.0); MEAN CORPUSCULAR HGB CONC 32.1 g/dl (32.0-36.5); MEAN CORPUSCULAR VOLUME 94.8 fl (80.0-96.0); PLATELET COUNT, AUTOMATED 259 10^3/uL (150-450); RED BLOOD COUNT 4.01 10^6/uL (4.00-5.40); WHITE BLOOD COUNT 8.6 10^3/uL (4.0-10.0)
[2019-11-12 13:32] LABS: ALBUMIN 4.1 GM/DL (3.2-5.2); ALT/SGPT 32 U/L (12-78); BILIRUBIN,TOTAL 0.6 MG/DL (0.2-1.0); BLOOD UREA NITROGEN 13 MG/DL (7-18); CALCIUM LEVEL 9.2 MG/DL (8.8-10.2); CARBON DIOXIDE LEVEL 30 MEQ/L (21-32); CHLORIDE LEVEL 100 MEQ/L (98-107); CREATININE FOR GFR 0.67 MG/DL (0.55-1.30); GLOMERULAR FILTRATION RATE > 60.0 (>39); GLUCOSE, FASTING 131 MG/DL (70-100); POTASSIUM SERUM 4.6 MEQ/L (3.5-5.1); SODIUM LEVEL 137 MEQ/L (136-145); TOTAL PROTEIN 8.2 GM/DL (6.4-8.2)
== END ==
LOC: M LAB 12:33
PROVIDERS: ATTEND Internal Medicine Gastroenterology
DX: K50.10 Crohn's disease of large intestine without complications (principal); R19.7 Diarrhea, unspecified; M25.50 Pain in unspecified joint

== ENCOUNTER → 2019-11-13 | Outpatient (REF) | payer MEDICARE | LOC: M LAB REF 12:29 | PROVIDERS: ATTEND Internal Medicine Gastroenterology | DX: K50.10 Crohn's disease of large intestine without complications (principal); R19.7 Diarrhea, unspecified; M25.50 Pain in unspecified joint ==

== ENCOUNTER 2020-01-09 12:02 | Outpatient (CLI) | payer MEDICARE ==
[~2020-01-09] VITALS: Ht 160 cm; Wt 114.5 kg
[2020-01-09] VITALS (8 sets, daily range): BP systolic 126–184; BP diastolic 58–94
[~2020-01-09 12:02] MED LIST changes: -ALVI12CA PO
[2020-01-09] MEDS ORDERED: ACETAMINOPHEN TAB 650MG DOSE (2X325MG) As Ordered ONE (12:13)
[2020-01-09] MEDS ORDERED: diphenhydrAMINE 50MG CAP As Ordered ONE (12:13)
[2020-01-09] MEDS ORDERED: ALVI12CA PO (12:26)
[2020-01-09] MEDS ORDERED: ACETAMINOPHEN 650MG PO PRIOR TO INFUSION PO ONE (12:30)
[2020-01-09] MEDS ORDERED: diphenhydrAMINE 50MG PO PRIOR TO INFUSION PO ONE (12:30)
[2020-01-09] MEDS ORDERED: NS 1,000 ML IV SCH (12:30)
[2020-01-09] MEDS ORDERED: inFLIXimab INJECTION 1,200 MG in NS 180 ML IV ONE (12:30)
== END 2020-01-09 15:10 | disposition home or self-care (01) ==
LOC: M INFU 12:02
PROVIDERS: ATTEND Internal Medicine Gastroenterology
DX: K50.90 Crohn's disease, unspecified, without complications (principal)
CPT/HCPCS: 96413; 96415; J1745

== ENCOUNTER 2020-02-27 09:44 | Outpatient (CLI) | payer MEDICARE ==
[~2020-02-27] VITALS: Ht 160 cm; Wt 114.5 kg
[2020-02-27] VITALS (8 sets, daily range): BP systolic 131–174; BP diastolic 58–81
[~2020-02-27 09:44] MED LIST changes: +ALVI12CA PO
[2020-02-27] MEDS ORDERED: ACETAMINOPHEN 650MG PO PRIOR TO INFUSION PO ONE (10:00)
[2020-02-27] MEDS ORDERED: NS 1,000 ML IV SCH (10:00)
[2020-02-27] MEDS ORDERED: inFLIXimab INJECTION 1,200 MG in NS 180 ML IV ONE (10:00)
[2020-02-27] MEDS ORDERED: diphenhydrAMINE 50MG PO PRIOR TO INFUSION PO ONE (10:00)
== END 2020-02-27 12:35 | disposition home or self-care (01) ==
LOC: M INFU 09:44
PROVIDERS: ATTEND Internal Medicine Gastroenterology
DX: K50.90 Crohn's disease, unspecified, without complications (principal)
CPT/HCPCS: 96413; 96415; J1745

== ENCOUNTER → 2020-03-10 | Outpatient (REF) | payer MEDICARE ==
[2020-03-10 11:06] LABS: BASO # 0.1 10^3/uL (0.0-0.2); EOS # 0.1 10^3/uL (0.0-0.5); EOS % 1.9 % (0.0-3.0); HEMATOCRIT 37.7 % (36.0-47.0); HEMOGLOBIN 11.8 g/dl (12.0-15.5); LYMPH # 1.9 10^3/uL (1.5-5.0); MEAN CORPUSCULAR HEMOGLOBIN 30.8 pg (27.0-33.0); MEAN CORPUSCULAR HGB CONC 31.3 g/dl (32.0-36.5); MEAN CORPUSCULAR VOLUME 98.4 fl (80.0-96.0); MONO # 0.7 10^3/uL (0.0-0.8); MONO % 11.5 % (0.0-5.0); NEUTROPHILS # 3.4 10^3/uL (1.5-8.5); PLATELET COUNT, AUTOMATED 276 10^3/uL (150-450); RED BLOOD COUNT 3.83 10^6/uL (4.00-5.40); WHITE BLOOD COUNT 6.2 10^3/uL (4.0-10.0)
[2020-03-10 11:24] LABS: HEMOGLOBIN A1c 6.2 %
[2020-03-10 11:37] LABS: FREE T4 1.28 NG/DL (0.76-1.46); MAGNESIUM LEVEL 2.2 MG/DL (1.8-2.4); THYROID STIMULATING HORMONE 3.52 uIU/ML (0.358-3.740)
[2020-03-10 11:38] LABS: PTH INTACT 24.2 PG/ML (18.5-88.0); THYROID PEROXIDASE ANTIBODY 32.3 U/ML (<60.0); TOTAL 25(OH) VITAMIN D 29.5 NG/ML (30.0-100.0)
== END ==
LOC: M SFHCPLAZ 08:23
PROVIDERS: ATTEND Family Medicine
DX: M46.90 Unspecified inflammatory spondylopathy, site unspecified (principal)

== ENCOUNTER → 2020-03-23 | Outpatient (REF) | payer MEDICARE ==
[2020-04-02 14:10] LABS: ANA (HEP2) Positive (.); CYCLIC CITRULLINATED PEPTIDE 5 units (0-19)
== END ==
LOC: M SFHCPLAZ 11:07
PROVIDERS: ATTEND Family Medicine
DX: M46.90 Unspecified inflammatory spondylopathy, site unspecified (principal)
CPT/HCPCS: 36415; 80230; 82397; 85652; 86038; 86140; 86200; G0463

== ENCOUNTER → 2020-05-12 | Outpatient (CLI) | payer MEDICARE ==
--- NOTE | 2020-05-12 15:03 | REPPI ---
INDICATION: M25.439 EFFUSION OF WRIST, UNSPECIFIED LATERALITY. COMPARISON: None. TECHNIQUE: Seven view cervical spine performed. FINDINGS: C7 cannot be visualized, nor can its relation to C6. There is no compression fracture of the visualized cervical vertebral bodies. There is slight anterolisthesis of about 1 mm of C3 on C4, which is increases to 2 mm with flexion. It is reduced with extension. There is moderate spurring of C4 and C5. There is mild spurring of C6. There is mild disc space narrowing and subchondral sclerosis at C4-5 and C5-6. There is diffuse narrowing, sclerosis and spurring at the posterior facet joints. There is no prevertebral soft tissue swelling. The neural foramina are grossly patent bilaterally. IMPRESSION: Arthritic changes as discussed in detail above. C7 vertebral body is not evaluated as it cannot be visualized due to overlying soft tissue structures. <Electronically signed by Pietro Srinivasan > 05/12/20 [id number]
--- NOTE | 2020-05-12 15:16 | REPPI ---
INDICATION: M25.439 EFFUSION OF WRIST, UNSPECIFIED LATERALITY COMPARISON: 12/07/2017. TECHNIQUE: Four views of each wrist performed. FINDINGS: There is no acute fracture or dislocation. Moderate narrowing with subchondral sclerosis and spurring at the right distal radioulnar joint is unchanged. There is mild narrowing between the scaphoid and trapezium as well as trapezium and base of 1st metacarpal on the right also unchanged. There are vascular calcifications in the soft tissues. On the left there is no acute fracture or dislocation. A small round calcific density just distal to the radioulnar joint is again noted. Moderate narrowing, subchondral sclerosis and spurring as well as subchondral cystic change is again noted at the joint between trapezium and base of 1st metacarpal, unchanged. Vascular calcifications are seen in the soft tissues. IMPRESSION: Stable bilateral arthritic changes. <Electronically signed by Pietro Srinivasan > 05/12/20 [id number]
--- NOTE | 2020-05-12 15:21 | REPPI ---
INDICATION: M54.9 DORSALGIA. COMPARISON: 12/07/2017. TECHNIQUE: Seven views lumbosacral spine performed including flexion and extension lateral views. FINDINGS: There is no fracture or dislocation. There is again bony fusion of the L3 and L4 vertebral bodies with obliteration of the disc space. There is no evidence of spondylolysis or spondylolisthesis, with no evidence of subluxation on the flexion or extension views. There is mild to moderate diffuse spurring. There is mild disc space narrowing at L1-2. There is twof-ip-eszduwog narrowing at L2-3 with subchondral sclerosis and vacuum, with similar findings also seen at L4-5 and L5-S1. There is diffuse sclerosis and spurring at the posterior facet joints especially at L5-S1. The posterior elements appear intact. Multiple surgical clips are seen in the abdomen. IMPRESSION: No fracture, dislocation or subluxation. Diffuse arthritic changes as above. <Electronically signed by Pietro Srinivasan > 05/12/20 [id number]
[2020-05-12 16:07] LABS: BASO # 0.1 10^3/uL (0.0-0.2); BASO % 0.6 % (0.0-1.0); EOS # 0.1 10^3/uL (0.0-0.5); HEMATOCRIT 40.5 % (36.0-47.0); HEMOGLOBIN 12.6 g/dl (12.0-15.5); LYMPH # 2.4 10^3/uL (1.5-5.0); LYMPH % 28.8 % (24.0-44.0); MEAN CORPUSCULAR HEMOGLOBIN 31.4 pg (27.0-33.0); MEAN CORPUSCULAR HGB CONC 31.1 g/dl (32.0-36.5); MONO % 12.2 % (0.0-5.0); NEUTROPHILS # 4.7 10^3/uL (1.5-8.5); NEUTROPHILS % 56.6 % (36.0-66.0); PLATELET COUNT, AUTOMATED 314 10^3/uL (150-450); RED BLOOD COUNT 4.01 10^6/uL (4.00-5.40); WHITE BLOOD COUNT 8.3 10^3/uL (4.0-10.0)
[2020-05-12 16:37] LABS: C REACTIVE PROTEIN QUANTITATIV 0.62 MG/DL (0.00-0.30)
[2020-05-12 16:39] LABS: CREATININE,RANDOM URINE 74.2 MG/DL; TOTAL PROTEIN,RANDOM URINE 17.1 MG/DL (0.0-12.0)
[2020-05-12 20:14] LABS: ERYTHROCYTE SEDIMENTATION RATE 36 mm/hr (0-30)
[2020-05-12 23:58] LABS: APPEARANCE, URINE CLEAR (CLEAR); BACTERIA, URINE AUTO NEGATIVE (NEGATIVE); BILIRUBIN, URINE AUTO NEGATIVE (NEGATIVE); BLOOD, URINE BLOOD NEGATIVE (NEGATIVE); COLOR, URINE YELLOW (YELLOW); GLUCOSE, URINE (UA) AUTO NEGATIVE (NEGATIVE); KETONE, URINE AUTO NEGATIVE (NEGATIVE); LEUKOCYTE ESTERASE, URINE AUTO NEGATIVE (NEGATIVE); NITRITE, URINE AUTO NEGATIVE (NEGATIVE); PROTEIN, URINE AUTO NEGATIVE (NEGATIVE); RBC, URINE AUTO 0 /HPF (0-3); SPECIFIC GRAVITY URINE AUTO 1.014 (1.002-1.035); SQUAMOUS EPITHELIAL CELL UR AU 1 /HPF (0-6); UROBILINOGEN, URINE AUTO 0.2 mg/dL (0.0-2.0); WBC, URINE AUTO 1 /HPF (0-3)
[2020-05-13 11:17] LABS: DRVV SCREEN 45.8 SEC
[2020-05-13 11:18] LABS: PTT LUPUS TYPE ANTICOAG SCREEN 1.1 (0-1.2)
== END ==
LOC: M PLAIMG 13:19
PROVIDERS: ATTEND Internal Medicine
DX: R76.8 Other specified abnormal immunological findings in serum (principal); M25.439 Effusion, unspecified wrist; K50.90 Crohn's disease, unspecified, without complications; M54.2 Cervicalgia

== ENCOUNTER → 2020-06-01 | Outpatient (REF) | payer MEDICARE ==
[2020-06-04 05:07] LABS: BETA-2 GLYCOPROTEIN I ABY IGA <9 (0-25); BETA-2 GLYCOPROTEIN I ABY IGG <9 (0-20); BETA-2 GLYCOPROTEIN I ABY IGM <9 (0-32)
== END ==
LOC: M SFHCRHEU 12:10
PROVIDERS: ATTEND Internal Medicine
DX: R76.0 Raised antibody titer (principal)
CPT/HCPCS: 86146; G0463

== ENCOUNTER → 2020-06-08 | Outpatient (CLI) | payer MEDICARE ==
[2020-06-08 11:03] LABS: HEMATOCRIT 37.1 % (36.0-47.0); HEMOGLOBIN 11.5 g/dl (12.0-15.5); PLATELET COUNT, AUTOMATED 297 10^3/uL (150-450); RED BLOOD COUNT 3.71 10^6/uL (4.00-5.40); WHITE BLOOD COUNT 8.1 10^3/uL (4.0-10.0)
[2020-06-08 11:33] LABS: BLOOD UREA NITROGEN 13 MG/DL (7-18); CARBON DIOXIDE LEVEL 34 MEQ/L (21-32); CHLORIDE LEVEL 100 MEQ/L (98-107); CREATININE FOR GFR 0.65 MG/DL (0.55-1.30); GLOMERULAR FILTRATION RATE > 60.0 (>39); GLUCOSE, FASTING 161 MG/DL (70-100); POTASSIUM SERUM 4.9 MEQ/L (3.5-5.1); SODIUM LEVEL 137 MEQ/L (136-145)
[2020-06-08 11:34] LABS: ALBUMIN 3.7 GM/DL (3.2-5.2); ALT/SGPT 26 U/L (12-78); BILIRUBIN,TOTAL 0.3 MG/DL (0.2-1.0); C REACTIVE PROTEIN QUANTITATIV 1.37 MG/DL (0.00-0.30); TOTAL PROTEIN 7.4 GM/DL (6.4-8.2)
[2020-06-08 11:59] LABS: ERYTHROCYTE SEDIMENTATION RATE 47 mm/hr (0-30)
== END ==
LOC: M PLALAB 08:39
PROVIDERS: ATTEND Internal Medicine Gastroenterology
DX: K50.10 Crohn's disease of large intestine without complications (principal); T50.905A Adverse effect of unspecified drugs, medicaments and biological substances, initial encounter; K57.30 Diverticulosis of large intestine without perforation or abscess without bleeding; R19.7 Diarrhea, unspecified

== ENCOUNTER → 2020-06-08 | Outpatient (CLI) | payer MEDICARE ==
--- NOTE | 2020-06-08 10:17 | REPPI ---
INDICATION: M54.9 DORSALGIA COMPARISON: None. TECHNIQUE: Single AP view of the pelvis. FINDINGS: No acute fracture or dislocation. Sacroiliac joints appear symmetric and relatively normal. Early advanced degenerative changes include sclerosis to the acetabulum with joint space narrowing and marginal spurring as well as early osteophyte formation along the femoral heads and cortical irregularities to the bilateral trochanters. IMPRESSION: Early advanced degenerative changes. No acute fracture or dislocation. <Electronically signed by Miguel A Ruelas > 06/08/20 [id number]
== END ==
LOC: M PLAIMG 08:43
PROVIDERS: ATTEND Internal Medicine
DX: M54.9 Dorsalgia, unspecified (principal); K50.10 Crohn's disease of large intestine without complications; T50.905A Adverse effect of unspecified drugs, medicaments and biological substances, initial encounter; K57.30 Diverticulosis of large intestine without perforation or abscess without bleeding; R19.7 Diarrhea, unspecified

== ENCOUNTER 2020-07-05 10:34 | Outpatient (CLI) | payer MEDICARE ==
[~2020-07-05] VITALS: Ht 160 cm; Wt 113.4 kg
[~2020-07-05 10:34] MED LIST changes: +ALBUTEROL SULFATE 2.5 MG/0.5 ML INH NEB SOLN INH PRN; +EPINEPHrine INJ 1 MG/ML 1ML AMP IM PRN; +diphenhydrAMINE 50MG/ML VIAL (J1200) IV PRN; +methylPREDNISolone 125MG 2ML VIAL IV PRN
[2020-07-05 10:59] VITALS: BP 143/71
[2020-07-05] MEDS ORDERED: USTEKINUMAB 520 MG in NS 146 ML IV ONE (11:00)
[2020-07-05] MEDS ORDERED: NS 1,000 ML IV SCH (11:00)
[2020-07-05 12:00] VITALS: BP 137/74
[2020-07-05 13:40] VITALS: BP 134/70
== END 2020-07-05 13:40 | disposition home or self-care (01) ==
LOC: M INFU 10:34
PROVIDERS: ATTEND Internal Medicine Gastroenterology
DX: K50.10 Crohn's disease of large intestine without complications (principal); Z88.6 Allergy status to analgesic agent; Z88.8 Allergy status to other drugs, medicaments and biological substances
CPT/HCPCS: 96365; 96366; J3358

== ENCOUNTER → 2020-10-26 | Outpatient (CLI) | payer MEDICARE ==
[~2020-10-26] MED LIST changes: -ALBUTEROL SULFATE 2.5 MG/0.5 ML INH NEB SOLN INH PRN; -EPINEPHrine INJ 1 MG/ML 1ML AMP IM PRN; +OMEP40CA4 PO; -OMEP40CA97 PO; -diphenhydrAMINE 50MG/ML VIAL (J1200) IV PRN; -methylPREDNISolone 125MG 2ML VIAL IV PRN
[2020-10-26 10:37] LABS: HEMATOCRIT 36.1 % (36.0-47.0); HEMOGLOBIN 11.5 g/dl (12.0-15.5); MEAN CORPUSCULAR HEMOGLOBIN 30.7 pg (27.0-33.0); MEAN CORPUSCULAR HGB CONC 31.9 g/dl (32.0-36.5); MEAN CORPUSCULAR VOLUME 96.5 fl (80.0-96.0); PLATELET COUNT, AUTOMATED 266 10^3/uL (150-450); RED BLOOD COUNT 3.74 10^6/uL (4.00-5.40)
[2020-10-26 11:10] LABS: ALBUMIN 3.6 GM/DL (3.2-5.2); ALT/SGPT 18 U/L (12-78); BILIRUBIN,TOTAL 0.3 MG/DL (0.2-1.0); BLOOD UREA NITROGEN 16 MG/DL (7-18); C REACTIVE PROTEIN QUANTITATIV 1.03 MG/DL (0.00-0.30); CALCIUM LEVEL 8.9 MG/DL (8.8-10.2); CARBON DIOXIDE LEVEL 29 MEQ/L (21-32); CHLORIDE LEVEL 102 MEQ/L (98-107); CREATININE FOR GFR 0.66 MG/DL (0.55-1.30); GLOMERULAR FILTRATION RATE > 60.0 (>39); GLUCOSE, FASTING 145 MG/DL (70-100); POTASSIUM SERUM 4.6 MEQ/L (3.5-5.1); SODIUM LEVEL 138 MEQ/L (136-145); TOTAL PROTEIN 7.3 GM/DL (6.4-8.2)
[2020-10-26 11:19] LABS: TOTAL 25(OH) VITAMIN D 24.6 NG/ML (30.0-100.0)
== END ==
LOC: M PLALAB 09:08
PROVIDERS: ATTEND Internal Medicine Gastroenterology
DX: K50.10 Crohn's disease of large intestine without complications (principal)

== ENCOUNTER → 2020-11-12 | Outpatient (CLI) | payer MEDICARE ==
[2020-11-13 21:10] LABS: ANA (HEP2) Positive (.); ANTI SCLERODERMA ANTIBODIES 1.1 AI (0.0-0.9); CARDIOLIPIN IGA ANTIBODY <9 APL U/mL (0-11); CARDIOLIPIN IGG ANTIBODY 87 GPL U/mL (0-14); CARDIOLIPIN IGM ANTIBODY <9 MPL U/mL (0-12)
== END ==
LOC: M PLALAB 09:27
PROVIDERS: ATTEND Internal Medicine
DX: R76.8 Other specified abnormal immunological findings in serum (principal)

== ENCOUNTER → 2020-11-15 | Outpatient (CLI) | payer MEDICARE ==
--- NOTE | 2020-11-15 13:55 | REPMRS ---
Patient History The patient states she has not had a clinical breast exam in over a year. Family history of colorectal cancer at age 50 or over in maternal aunt, prostate cancer at age 50 or over in father, colorectal cancer at age 50 or over in maternal cousin, colorectal cancer under age 50 in maternal unspecified relative. Took estrogen for 10 years. Best views possible due to shoulder injuries No breast complaints or changes today Patient signed the MRS sheet 1st covid vaccine 05/20/20-left arm-Moderna 2nd covid vaccine 06/17/20-left arm Priors on PACS Patient Identification Verified Digital Woman Screen Mammo: November 15, 2020 - Exam #: [id number] Bilateral CC and MLO view(s) were taken. Technologist: Ashely Flannery, Technologist Prior study comparison: October 27, 2019, bilateral digital woman screen mammo performed at [facility]. September 17, 2018, bilateral digital woman screen mammo performed at [facility]. August 08, 2017, digital woman screen mammo performed at [facility]. FINDINGS: There are scattered fibroglandular densities. The Volpara volumetric breast density category is:B. There has been no change in the appearance of the mammogram from the prior studies. There is a mild amount of scattered fibroglandular density which is fairly symmetric. There is no interval development of dominant mass, architectural distortion, or grouped microcalcification suggestive of malignancy. 3-D tomosynthesis shows no additional findings. Assessment: BI-RADS/ACR category 1 mammogram. Negative Mammogram. Recommendation Routine screening mammogram of both breasts in 1 year (for women over age 40). This patient's [facility] Lifetime Breast Cancer Risk is estimated at 2.2 %. This mammogram was interpreted with the aid of an FDA-approved computer-aided dectection system. Electronically Signed By: Joe Ken MD 11/15/20 0171
== END ==
LOC: M WHC 10:47
PROVIDERS: ATTEND Family Medicine
DX: Z12.31 Encounter for screening mammogram for malignant neoplasm of breast (principal)

== ENCOUNTER → 2020-12-16 | Outpatient (REF) | payer MEDICARE | LOC: M SFHCPLAZ 13:02 | PROVIDERS: ATTEND Physician Assistant Medical | DX: J06.9 Acute upper respiratory infection, unspecified (principal) | CPT/HCPCS: 87798; G0463 ==

== ENCOUNTER → 2021-01-18 | Outpatient (CLI) | payer MEDICARE ==
[2021-01-18 10:44] LABS: APPEARANCE, URINE HAZY (CLEAR); BILIRUBIN, URINE AUTO NEGATIVE (NEGATIVE); BLOOD, URINE BLOOD NEGATIVE (NEGATIVE); COLOR, URINE YELLOW (YELLOW); GLUCOSE, URINE (UA) AUTO NEGATIVE (NEGATIVE); KETONE, URINE AUTO NEGATIVE (NEGATIVE); LEUKOCYTE ESTERASE, URINE AUTO TRACE (NEGATIVE); NITRITE, URINE AUTO NEGATIVE (NEGATIVE); PROTEIN, URINE AUTO NEGATIVE (NEGATIVE); SPECIFIC GRAVITY URINE AUTO 1.017 (1.002-1.035); UROBILINOGEN, URINE AUTO 0.2 mg/dL (0.0-2.0)
[2021-01-18 10:46] LABS: BASO # 0.1 10^3/uL (0.0-0.2); BASO % 1.2 % (0.0-1.0); EOS # 0.1 10^3/uL (0.0-0.5); EOS % 1.5 % (0.0-3.0); HEMATOCRIT 36.4 % (36.0-47.0); HEMOGLOBIN 11.3 g/dl (12.0-15.5); LYMPH # 1.4 10^3/uL (1.5-5.0); LYMPH % 18.6 % (24.0-44.0); MEAN CORPUSCULAR HEMOGLOBIN 29.8 pg (27.0-33.0); MONO # 0.9 10^3/uL (0.0-0.8); MONO % 11.5 % (2.0-8.0); NEUTROPHILS # 5.1 10^3/uL (1.5-8.5); NEUTROPHILS % 66.8 % (36.0-66.0); PLATELET COUNT, AUTOMATED 276 10^3/uL (150-450); RED BLOOD COUNT 3.79 10^6/uL (4.00-5.40); WHITE BLOOD COUNT 7.6 10^3/uL (4.0-10.0)
[2021-01-18 10:57] LABS: BACTERIA, URINE AUTO 1+ (NEGATIVE); RBC, URINE AUTO 1 /HPF (0-3); SQUAMOUS EPITHELIAL CELL UR AU 4 /HPF (0-6); WBC, URINE AUTO 2 /HPF (0-3)
[2021-01-18 11:27] LABS: ALBUMIN 3.5 GM/DL (3.2-5.2); ALT/SGPT 22 U/L (12-78); BILIRUBIN,TOTAL 0.4 MG/DL (0.2-1.0); BLOOD UREA NITROGEN 10 MG/DL (7-18); CALCIUM LEVEL 8.8 MG/DL (8.8-10.2); CARBON DIOXIDE LEVEL 32 MEQ/L (21-32); CHLORIDE LEVEL 101 MEQ/L (98-107); CHOLESTEROL LEVEL 131 MG/DL (<200); CHOLESTEROL RISK RATIO 2.568 (<5); CREATININE FOR GFR 0.55 MG/DL (0.55-1.30); FERRITIN 50 NG/ML (8-252); FREE T4 1.15 NG/DL (0.76-1.46); GLOMERULAR FILTRATION RATE > 60.0 (>39); GLUCOSE, FASTING 148 MG/DL (70-100); HDL CHOLESTEROL 51 MG/DL (>40); LDL CHOLESTEROL 51 MG/DL (<100); NON-HDL-C 80 MG/DL; NT-PRO BNP 390 PG/ML (<125); POTASSIUM SERUM 4.7 MEQ/L (3.5-5.1); SODIUM LEVEL 138 MEQ/L (136-145); TOTAL PROTEIN 7.2 GM/DL (6.4-8.2); TRIGLYCERIDES LEVEL 146 MG/DL (<150)
[2021-01-18 11:31] LABS: MALB URINE SIEMENS 26.9 MG/L; MAU/CREAT RATIO 26.6 MCG/MG (0.0-30.0)
[2021-01-18 11:51] LABS: HEMOGLOBIN A1c 6.2 %
== END ==
LOC: M PLALAB 09:07
PROVIDERS: ATTEND Family Medicine
DX: D50.9 Iron deficiency anemia, unspecified (principal); I10 Essential (primary) hypertension; E55.9 Vitamin D deficiency, unspecified; E11.8 Type 2 diabetes mellitus with unspecified complications; E78.5 Hyperlipidemia, unspecified; Z79.899 Other long term (current) drug therapy

== ENCOUNTER → 2021-03-23 | Outpatient (REF) | payer MEDICARE | LOC: M SFHCPLAZ 12:59 | PROVIDERS: ATTEND Physician Assistant | DX: R09.89 Other specified symptoms and signs involving the circulatory and respiratory systems (principal) | CPT/HCPCS: 87426; G0463; U0003 ==

== ENCOUNTER → 2021-04-27 | Outpatient (CLI) | payer MEDICARE ==
[2021-04-27 13:42] LABS: BASO # 0.1 10^3/uL (0.0-0.2); BASO % 0.6 % (0.0-1.0); EOS # 0.1 10^3/uL (0.0-0.5); EOS % 0.9 % (0.0-3.0); HEMATOCRIT 39.5 % (36.0-47.0); HEMOGLOBIN 12.4 g/dl (12.0-15.5); LYMPH # 1.3 10^3/uL (1.5-5.0); MEAN CORPUSCULAR HEMOGLOBIN 30.2 pg (27.0-33.0); MEAN CORPUSCULAR HGB CONC 31.4 g/dl (32.0-36.5); MEAN CORPUSCULAR VOLUME 96.1 fl (80.0-96.0); MONO # 1.3 10^3/uL (0.0-0.8); MONO % 12.5 % (2.0-8.0); NEUTROPHILS # 7.5 10^3/uL (1.5-8.5); NEUTROPHILS % 72.4 % (36.0-66.0); PLATELET COUNT, AUTOMATED 254 10^3/uL (150-450); RED BLOOD COUNT 4.11 10^6/uL (4.00-5.40); WHITE BLOOD COUNT 10.3 10^3/uL (4.0-10.0)
[2021-04-27 14:06] LABS: HEMOGLOBIN A1c 7.1 %
[2021-04-27 14:22] LABS: DIGOXIN LEVEL 0.6 NG/ML (0.5-2.0); FREE T4 1.28 NG/DL (0.76-1.46); THYROID STIMULATING HORMONE 3.12 uIU/ML (0.358-3.740)
== END ==
LOC: M PLALAB 11:24
PROVIDERS: ATTEND Physician Assistant Medical
DX: E11.8 Type 2 diabetes mellitus with unspecified complications (principal); D50.9 Iron deficiency anemia, unspecified; E03.9 Hypothyroidism, unspecified

== ENCOUNTER → 2021-05-10 | Outpatient (CLI) | payer MEDICARE ==
[~2021-05-10] MED LIST changes: +ALLE1TAB23; +DICY10CA13; +FURO20TA2; +STEL90IN
[2021-05-10 21:18] LABS: ALBUMIN 4.1 GM/DL (3.2-5.2); ALT/SGPT 27 U/L (12-78); BILIRUBIN,TOTAL 0.2 MG/DL (0.2-1.0); BLOOD UREA NITROGEN 12 MG/DL (7-18); CALCIUM LEVEL 9.2 MG/DL (8.8-10.2); CARBON DIOXIDE LEVEL 28 MEQ/L (21-32); CHLORIDE LEVEL 98 MEQ/L (98-107); CREATININE FOR GFR 0.74 MG/DL (0.55-1.30); FREE T4 1.28 NG/DL (0.76-1.46); GLOMERULAR FILTRATION RATE > 60.0 (>39); GLUCOSE, FASTING 139 MG/DL (70-100); MAGNESIUM LEVEL 2.2 MG/DL (1.8-2.4); NT-PRO BNP 1851 PG/ML (<450); POTASSIUM SERUM 4.4 MEQ/L (3.5-5.1); PTH INTACT 30.9 PG/ML (18.5-88.0); SODIUM LEVEL 135 MEQ/L (136-145); TOTAL 25(OH) VITAMIN D 35.2 NG/ML (30.0-100.0); TOTAL PROTEIN 7.8 GM/DL (6.4-8.2)
== END ==
LOC: M PLALAB 13:30
PROVIDERS: ATTEND Family Medicine
DX: E55.9 Vitamin D deficiency, unspecified (principal); I50.32 Chronic diastolic (congestive) heart failure; K76.0 Fatty (change of) liver, not elsewhere classified; Z79.899 Other long term (current) drug therapy
CPT/HCPCS: 36415; 80053; 82105; 82172; 82306; 83010; 83735; 83880; 83883; 83970; 84439; 84443; G0463

== ENCOUNTER → 2021-05-25 | Outpatient (CLI) | payer MEDICARE ==
[~2021-05-25] MED LIST changes: -ALLE1TAB23; -DICY10CA13; -FURO20TA2; -STEL90IN
[2021-05-25 14:13] LABS: DIGOXIN LEVEL 0.7 NG/ML (0.5-2.0)
== END ==
LOC: M PLALAB 11:19
PROVIDERS: ATTEND Physician Assistant Medical
DX: I48.0 Paroxysmal atrial fibrillation (principal)

== ENCOUNTER → 2021-06-01 | Outpatient (CLI) | payer MEDICARE ==
[2021-06-01 14:06] LABS: BASO # 0.1 10^3/uL (0.0-0.2); BASO % 0.7 % (0.0-1.0); EOS # 0.1 10^3/uL (0.0-0.5); EOS % 0.9 % (0.0-3.0); HEMATOCRIT 39.1 % (36.0-47.0); HEMOGLOBIN 12.4 g/dl (12.0-15.5); LYMPH # 1.6 10^3/uL (1.5-5.0); LYMPH % 17.4 % (24.0-44.0); MEAN CORPUSCULAR HEMOGLOBIN 30.4 pg (27.0-33.0); MEAN CORPUSCULAR HGB CONC 31.7 g/dl (32.0-36.5); MEAN CORPUSCULAR VOLUME 95.8 fl (80.0-96.0); MONO # 1.2 10^3/uL (0.0-0.8); MONO % 12.8 % (2.0-8.0); NEUTROPHILS # 6.4 10^3/uL (1.5-8.5); NEUTROPHILS % 67.6 % (36.0-66.0); PLATELET COUNT, AUTOMATED 266 10^3/uL (150-450); RED BLOOD COUNT 4.08 10^6/uL (4.00-5.40); WHITE BLOOD COUNT 9.4 10^3/uL (4.0-10.0)
[2021-06-01 14:35] LABS: ALBUMIN 3.7 GM/DL (3.2-5.2); BLOOD UREA NITROGEN 16 MG/DL (7-18); CALCIUM LEVEL 9.3 MG/DL (8.8-10.2); CARBON DIOXIDE LEVEL 30 MEQ/L (21-32); CHLORIDE LEVEL 102 MEQ/L (98-107); CREATININE FOR GFR 0.72 MG/DL (0.55-1.30); GLOMERULAR FILTRATION RATE > 60.0 (>39); GLUCOSE, FASTING 165 MG/DL (70-100); PHOSPHORUS LEVEL 3.6 MG/DL (2.5-4.9); SODIUM LEVEL 137 MEQ/L (136-145)
[2021-06-01 20:19] LABS: MAGNESIUM LEVEL 1.8 MG/DL (1.8-2.4)
== END ==
LOC: M PLALAB 11:56
PROVIDERS: ATTEND Physician Assistant
DX: I48.0 Paroxysmal atrial fibrillation (principal); I50.32 Chronic diastolic (congestive) heart failure

== ENCOUNTER 2021-06-04 16:10 | Emergency (ER) | payer MEDICARE ==
[2021-06-04] MEDS ORDERED: FURO20TA2 (16:44)
[2021-06-04] MEDS ORDERED: STEL90IN (16:44)
[2021-06-04] MEDS ORDERED: DICY10CA13 (16:44)
[2021-06-04] MEDS ORDERED: ALLE1TAB23 (16:44)
[2021-06-04 17:56] VITALS: BP 132/68
== END 2021-06-04 17:55 | disposition home or self-care (01) ==
LOC: M ED 16:10 → EDBD 16:10 → M ED 17:55
DX: S01.81XA Laceration without foreign body of other part of head, initial encounter (principal); K21.9 Gastro-esophageal reflux disease without esophagitis; J45.909 Unspecified asthma, uncomplicated; I10 Essential (primary) hypertension; Z86.79 Personal history of other diseases of the circulatory system; Z88.5 Allergy status to narcotic agent; Z88.6 Allergy status to analgesic agent; W00.9XXA Unspecified fall due to ice and snow, initial encounter; Y92.9 Unspecified place or not applicable; Y93.9 Activity, unspecified; Y99.9 Unspecified external cause status; Z79.899 Other long term (current) drug therapy

== ENCOUNTER → 2021-06-07 | Outpatient (CLI) | payer MEDICARE ==
[~2021-06-07] MED LIST changes: +ALLE1TAB23; +DICY10CA13; +FURO20TA2; +STEL90IN
== END ==
LOC: M CARPUL 09:31
PROVIDERS: ATTEND Physician Assistant
DX: I48.0 Paroxysmal atrial fibrillation (principal); I50.32 Chronic diastolic (congestive) heart failure

== ENCOUNTER → 2021-09-05 | Outpatient (CLI) | payer MEDICARE | LOC: M WUC 12:03 | PROVIDERS: ATTEND Physician Assistant | DX: S20.211A Contusion of right front wall of thorax, initial encounter (principal); M25.511 Pain in right shoulder; Y93.9 Activity, unspecified; Y92.89 Other specified places as the place of occurrence of the external cause ==

== ENCOUNTER 2021-09-19 15:33 | Emergency (ER) | payer MEDICARE ==
[~2021-09-19] VITALS: Ht 160 cm; Wt 111.9 kg
[2021-09-19] MEDS ORDERED: BENZONATATE 100MG CAPSULE PO ONE (17:45)
[2021-09-19 18:23] LABS: BASO # 0.1 10^3/uL (0.0-0.2); EOS % 0.5 % (0.0-3.0); HEMATOCRIT 38.3 % (36.0-47.0); HEMOGLOBIN 12.8 g/dl (12.0-15.5); LYMPH % 16.2 % (24.0-44.0); MEAN CORPUSCULAR HEMOGLOBIN 31.8 pg (27.0-33.0); MEAN CORPUSCULAR HGB CONC 33.4 g/dl (32.0-36.5); MONO # 1.1 10^3/uL (0.0-0.8); MONO % 18.1 % (2.0-8.0); NEUTROPHILS % 63.4 % (36.0-66.0); PLATELET COUNT, AUTOMATED 254 10^3/uL (150-450); RED BLOOD COUNT 4.03 10^6/uL (4.00-5.40); WHITE BLOOD COUNT 6.3 10^3/uL (4.0-10.0)
[2021-09-19 18:43] LABS: ERYTHROCYTE SEDIMENTATION RATE 57 mm/hr (0-30)
[2021-09-19 18:59] LABS: C REACTIVE PROTEIN QUANTITATIV 2.57 MG/DL (0.00-0.30); DIGOXIN LEVEL 0.6 NG/ML (0.5-2.0)
[2021-09-19] MEDS ORDERED: BENZ200C70 PO (19:39)
[2021-09-19] MEDS ORDERED: AMOX875T2 PO (19:39)
[2021-09-19 19:44] VITALS: BP 169/97
[2021-09-19] MEDS: AUGMENTIN 875 MG TAB PO ONE ×2 (19:46→20:00)
== END 2021-09-19 19:52 | disposition home or self-care (01) ==
LOC: M ED 15:33
DX: J06.9 Acute upper respiratory infection, unspecified (principal); R05.9 Cough, unspecified; R94.31 Abnormal electrocardiogram [ECG] [EKG]; I10 Essential (primary) hypertension; E11.9 Type 2 diabetes mellitus without complications; E78.5 Hyperlipidemia, unspecified; J45.909 Unspecified asthma, uncomplicated; K50.90 Crohn's disease, unspecified, without complications; Z86.79 Personal history of other diseases of the circulatory system; Z98.84 Bariatric surgery status; Z88.5 Allergy status to narcotic agent; Z88.6 Allergy status to analgesic agent; Z79.4 Long term (current) use of insulin; Z79.899 Other long term (current) drug therapy

== ENCOUNTER → 2021-11-17 | Outpatient (CLI) | payer MEDICARE ==
[~2021-11-17] MED LIST changes: +AMOX875T2 PO; +BENZ200C70 PO
[2021-11-17 10:17] LABS: C REACTIVE PROTEIN QUANTITATIV 0.69 MG/DL (0.00-0.30)
[2021-11-17 10:42] LABS: TOTAL 25(OH) VITAMIN D 37.2 NG/ML (30.0-100.0)
[2021-11-18 20:07] LABS: ANA (HEP2) Positive (.); ANTI SCLERODERMA ANTIBODIES 1.4 AI (0.0-0.9); CARDIOLIPIN IGA ANTIBODY <9 APL U/mL (0-11); CARDIOLIPIN IGG ANTIBODY 50 GPL U/mL (0-14); CARDIOLIPIN IGM ANTIBODY <9 MPL U/mL (0-12)
== END ==
LOC: M LAB 08:26
PROVIDERS: ATTEND Internal Medicine
DX: M25.439 Effusion, unspecified wrist (principal); E55.9 Vitamin D deficiency, unspecified; R76.0 Raised antibody titer; R76.8 Other specified abnormal immunological findings in serum

== ENCOUNTER → 2021-11-17 | Outpatient (CLI) | payer MEDICARE ==
[2021-11-17 10:31] LABS: ALBUMIN 3.8 GM/DL (3.2-5.2); ALT/SGPT 20 U/L (12-78); BILIRUBIN,TOTAL 0.3 MG/DL (0.2-1.0); BLOOD UREA NITROGEN 13 MG/DL (7-18); C REACTIVE PROTEIN QUANTITATIV 0.59 MG/DL (0.00-0.30); CALCIUM LEVEL 9.3 MG/DL (8.8-10.2); CARBON DIOXIDE LEVEL 31 MEQ/L (21-32); CHLORIDE LEVEL 101 MEQ/L (98-107); CREATININE FOR GFR 0.75 MG/DL (0.55-1.30); GLOMERULAR FILTRATION RATE > 60.0 (>39); GLUCOSE, FASTING 167 MG/DL (70-100); POTASSIUM SERUM 4.7 MEQ/L (3.5-5.1); SODIUM LEVEL 137 MEQ/L (136-145); TOTAL PROTEIN 7.5 GM/DL (6.4-8.2)
== END ==
LOC: M RAD 08:14
PROVIDERS: ATTEND Nurse Practitioner Family
DX: K75.81 Nonalcoholic steatohepatitis (NASH) (principal); K21.9 Gastro-esophageal reflux disease without esophagitis; K50.10 Crohn's disease of large intestine without complications; Z90.49 Acquired absence of other specified parts of digestive tract

== ENCOUNTER → 2021-11-17 | Outpatient (CLI) | payer MEDICARE ==
[2021-11-17 10:09] LABS: INR 1.08; PROTHROMBIN TIME 14.4 SECONDS (12.7-14.5)
[2021-11-17 10:10] LABS: PARTIAL THROMBOPLASTIN TIME 30.5 SECONDS (25.9-37.0)
[2021-11-17 10:11] LABS: HEMOGLOBIN A1c 6.7 %
[2021-11-17 10:31] LABS: ALBUMIN 3.8 GM/DL (3.2-5.2); ALT/SGPT 19 U/L (12-78); BILIRUBIN,TOTAL 0.3 MG/DL (0.2-1.0); BLOOD UREA NITROGEN 13 MG/DL (7-18); C REACTIVE PROTEIN QUANTITATIV 0.69 MG/DL (0.00-0.30); CALCIUM LEVEL 9.1 MG/DL (8.8-10.2); CARBON DIOXIDE LEVEL 30 MEQ/L (21-32); CHLORIDE LEVEL 102 MEQ/L (98-107); CHOLESTEROL LEVEL 126 MG/DL (<200); CREATININE FOR GFR 0.72 MG/DL (0.55-1.30); GLOMERULAR FILTRATION RATE > 60.0 (>39); GLUCOSE, FASTING 165 MG/DL (70-100); HDL CHOLESTEROL 50 MG/DL (>40); LDL CHOLESTEROL 42 MG/DL (<100); NON-HDL-C 76 MG/DL; NT-PRO BNP 2767 PG/ML (<450); POTASSIUM SERUM 4.5 MEQ/L (3.5-5.1); SODIUM LEVEL 137 MEQ/L (136-145); TOTAL PROTEIN 7.4 GM/DL (6.4-8.2); TRIGLYCERIDES LEVEL 170 MG/DL (<150)
[2021-11-17 10:42] LABS: VITAMIN B12 LEVEL 1829 PG/ML (247-911)
== END ==
LOC: M LAB 08:21
PROVIDERS: ATTEND Family Medicine
DX: I50.32 Chronic diastolic (congestive) heart failure (principal); M46.90 Unspecified inflammatory spondylopathy, site unspecified; E11.8 Type 2 diabetes mellitus with unspecified complications; E53.8 Deficiency of other specified B group vitamins; K75.81 Nonalcoholic steatohepatitis (NASH); K21.9 Gastro-esophageal reflux disease without esophagitis; K50.10 Crohn's disease of large intestine without complications; M25.439 Effusion, unspecified wrist; E55.9 Vitamin D deficiency, unspecified; R76.0 Raised antibody titer; R76.8 Other specified abnormal immunological findings in serum; Z90.49 Acquired absence of other specified parts of digestive tract

== ENCOUNTER → 2022-01-05 | Outpatient (CLI) | payer MEDICARE ==
[~2022-01-05] MED LIST changes: +ALBU8.5H INH; +AZAT50TA37 PO; +BREO1INH INH; -DICY10CA13; +DICY10CA13 PO; +DIGO0.123 PO; +FEXO-112 PO; +FLUTISP; -FURO20TA2; +FURO20TA2 PO; +LEVO100T5 PO; +METF750T36 PO; +OMEP-173 PO; +ROSU10TA6 PO; -STEL90IN; +STEL90IN SC; +ZOLO100T PO
== END ==
LOC: M CARPUL 12:20
PROVIDERS: ATTEND Physician Assistant
DX: I48.20 Chronic atrial fibrillation, unspecified (principal)

== ENCOUNTER → 2022-01-18 | Outpatient (CLI) | payer MEDICARE | LOC: M LABSMTC 10:54 | PROVIDERS: ATTEND Anesthesiology | DX: Z01.812 Encounter for preprocedural laboratory examination (principal); Z11.52 Encounter for screening for COVID-19 ==

== ENCOUNTER → 2022-01-20 | Outpatient (CLI) | payer MEDICARE ==
[2022-01-20 10:22] LABS: BASO # 0.1 10^3/uL (0.0-0.2); EOS # 0.1 10^3/uL (0.0-0.5); EOS % 1.2 % (0.0-3.0); HEMATOCRIT 37.2 % (36.0-47.0); HEMOGLOBIN 11.9 g/dl (12.0-15.5); LYMPH # 1.4 10^3/uL (1.5-5.0); LYMPH % 21.4 % (24.0-44.0); MEAN CORPUSCULAR HEMOGLOBIN 31.3 pg (27.0-33.0); MEAN CORPUSCULAR VOLUME 97.9 fl (80.0-96.0); MONO # 0.9 10^3/uL (0.0-0.8); MONO % 13.9 % (2.0-8.0); NEUTROPHILS # 4.2 10^3/uL (1.5-8.5); NEUTROPHILS % 61.9 % (36.0-66.0); PLATELET COUNT, AUTOMATED 261 10^3/uL (150-450); WHITE BLOOD COUNT 6.7 10^3/uL (4.0-10.0)
[2022-01-20 10:34] LABS: INR 1.11; PROTHROMBIN TIME 14.7 SECONDS (12.7-14.5)
[2022-01-20 10:35] LABS: PARTIAL THROMBOPLASTIN TIME 30.6 SECONDS (25.9-37.0)
[2022-01-20 11:14] LABS: ALBUMIN 3.8 GM/DL (3.2-5.2); ALT/SGPT 24 U/L (12-78); BILIRUBIN,TOTAL 0.4 MG/DL (0.2-1.0); BLOOD UREA NITROGEN 13 MG/DL (7-18); CALCIUM LEVEL 9.1 MG/DL (8.8-10.2); CARBON DIOXIDE LEVEL 30 MEQ/L (21-32); CHLORIDE LEVEL 98 MEQ/L (98-107); FREE T4 1.26 NG/DL (0.76-1.46); GLOMERULAR FILTRATION RATE > 60.0 (>39); GLUCOSE, FASTING 178 MG/DL (70-100); NT-PRO BNP 2064 PG/ML (<450); POTASSIUM SERUM 4.6 MEQ/L (3.5-5.1); SODIUM LEVEL 133 MEQ/L (136-145); TOTAL PROTEIN 7.3 GM/DL (6.4-8.2)
== END ==
LOC: M PLALAB 09:00
PROVIDERS: ATTEND Family Medicine
DX: I48.0 Paroxysmal atrial fibrillation (principal)

== ENCOUNTER 2022-01-23 06:45 | Day surgery (SDC) | payer MEDICARE ==
[~2022-01-23] VITALS: Ht 157.5 cm; Wt 112.0 kg
[~2022-01-23 06:45] MED LIST changes: +LIDOCAINE 1% SDV 5ML VIAL As Ordered ONE; +TETRACAINE 0.5% OPHTH SOLN 4ML OD SCH
[2022-01-23] MEDS: PHENYLEPHRINE 2.5% OPHTH SOL 2ML OD SCH ×2 (06:53→07:15)
[2022-01-23] MEDS: CYCLOPENTOLATE 1% OPHTH SOLN 2 ML BTL OD SCH ×2 (06:53→07:15)
[2022-01-23] MEDS: FLURBIPROFEN 0.03% OPHTH SOLN 2.5 ML OD SCH ×2 (06:53→07:15)
[2022-01-23] MEDS ORDERED: LR 1,000 ML IV SCH (07:00)
[2022-01-23] MEDS ORDERED: MIDAZOLAM INJ 2MG/2ML VIAL (J2250 PER 1MG) As Ordered ONE (07:41)
[2022-01-23] MEDS ORDERED: fentaNYL 100 MCG/2 ML INJECTION As Ordered ONE (07:41)
[2022-01-23 09:00] VITALS: BP 117/55
== END 2022-01-23 09:27 | disposition home or self-care (01) ==
LOC: M SDC 06:45
PROVIDERS: ATTEND Ophthalmology
DX: H25.11 Age-related nuclear cataract, right eye (principal); E03.9 Hypothyroidism, unspecified; E11.9 Type 2 diabetes mellitus without complications; I10 Essential (primary) hypertension; I48.91 Unspecified atrial fibrillation; E78.5 Hyperlipidemia, unspecified; K21.9 Gastro-esophageal reflux disease without esophagitis; J45.909 Unspecified asthma, uncomplicated; F32.A Depression, unspecified; Z79.02 Long term (current) use of antithrombotics/antiplatelets; Z79.899 Other long term (current) drug therapy; Z79.84 Long term (current) use of oral hypoglycemic drugs; Z79.82 Long term (current) use of aspirin; Z88.5 Allergy status to narcotic agent; Z88.8 Allergy status to other drugs, medicaments and biological substances
CPT/HCPCS: 66984; J2250; J3010; V2632

== ENCOUNTER → 2022-05-02 | Outpatient (CLI) | payer MEDICARE ==
[~2022-05-02] MED LIST changes: -LIDOCAINE 1% SDV 5ML VIAL As Ordered ONE; -TETRACAINE 0.5% OPHTH SOLN 4ML OD SCH
[2022-05-02 14:14] LABS: HEMOGLOBIN 12.1 g/dl (12.0-15.5); MEAN CORPUSCULAR HEMOGLOBIN 30.5 pg (27.0-33.0); MEAN CORPUSCULAR VOLUME 98.2 fl (80.0-96.0); PLATELET COUNT, AUTOMATED 257 10^3/uL (150-450); RED BLOOD COUNT 3.97 10^6/uL (4.00-5.40); WHITE BLOOD COUNT 6.8 10^3/uL (4.0-10.0)
[2022-05-02 14:31] LABS: ERYTHROCYTE SEDIMENTATION RATE 55 mm/hr (0-30)
[2022-05-02 14:33] LABS: INR 1.02; PROTHROMBIN TIME 13.6 SECONDS (12.5-14.5)
[2022-05-02 14:49] LABS: ALBUMIN 3.8 G/DL (3.2-5.2); ALKALINE PHOSPHATASE 90 U/L (46-116); ALT/SGPT 19 U/L (7.0-40); AST/SGOT 30 U/L (<34); BILIRUBIN,TOTAL 0.4 MG/DL (0.3-1.2); BLOOD UREA NITROGEN 14 MG/DL (9-23); CALCIUM LEVEL 9.3 MG/DL (8.3-10.6); CARBON DIOXIDE LEVEL 25 MMOL/L (20-31); CHLORIDE LEVEL 102 MMOL/L (98-107); CREATININE FOR GFR 0.63 MG/DL (0.55-1.30); GLOMERULAR FILTRATION RATE > 60.0 (>39); GLUCOSE, FASTING 160 MG/DL (74-106); POTASSIUM SERUM 4.5 MMOL/L (3.5-5.1); SODIUM LEVEL 140 MMOL/L (136-145)
== END ==
LOC: M PLALAB 09:30
PROVIDERS: ATTEND Internal Medicine Gastroenterology
DX: K50.10 Crohn's disease of large intestine without complications (principal); K44.9 Diaphragmatic hernia without obstruction or gangrene; K21.9 Gastro-esophageal reflux disease without esophagitis; Z80.0 Family history of malignant neoplasm of digestive organs; K75.81 Nonalcoholic steatohepatitis (NASH); M13.0 Polyarthritis, unspecified; R13.10 Dysphagia, unspecified

== ENCOUNTER → 2022-05-02 | Outpatient (CLI) | payer MEDICARE ==
[2022-05-02 14:15] LABS: BASO # 0.1 10^3/uL (0.0-0.2); BASO % 0.7 % (0.0-1.0); EOS # 0.1 10^3/uL (0.0-0.5); HEMATOCRIT 39.9 % (36.0-47.0); HEMOGLOBIN 12.1 g/dl (12.0-15.5); LYMPH # 1.8 10^3/uL (1.5-5.0); LYMPH % 25.2 % (24.0-44.0); MEAN CORPUSCULAR HEMOGLOBIN 30.1 pg (27.0-33.0); MEAN CORPUSCULAR HGB CONC 30.3 g/dl (32.0-36.5); MEAN CORPUSCULAR VOLUME 99.3 fl (80.0-96.0); MONO # 0.9 10^3/uL (0.0-0.8); MONO % 12.3 % (2.0-8.0); NEUTROPHILS # 4.3 10^3/uL (1.5-8.5); NEUTROPHILS % 60.4 % (36.0-66.0); PLATELET COUNT, AUTOMATED 255 10^3/uL (150-450); RED BLOOD COUNT 4.02 10^6/uL (4.00-5.40); WHITE BLOOD COUNT 7.1 10^3/uL (4.0-10.0)
[2022-05-02 14:31] LABS: ERYTHROCYTE SEDIMENTATION RATE 50 mm/hr (0-30)
[2022-05-02 14:52] LABS: ALBUMIN 3.7 G/DL (3.2-5.2); ALKALINE PHOSPHATASE 90 U/L (46-116); ALT/SGPT 15 U/L (7.0-40); AST/SGOT 31 U/L (<34); BILIRUBIN,TOTAL 0.4 MG/DL (0.3-1.2); BLOOD UREA NITROGEN 12 MG/DL (9-23); CALCIUM LEVEL 9.1 MG/DL (8.3-10.6); CARBON DIOXIDE LEVEL 28 MMOL/L (20-31); CHLORIDE LEVEL 101 MMOL/L (98-107); CREATININE FOR GFR 0.63 MG/DL (0.55-1.30); FERRITIN 80.2 NG/ML (7.3-270.7); GLOMERULAR FILTRATION RATE > 60.0 (>39); GLUCOSE, FASTING 162 MG/DL (74-106); POTASSIUM SERUM 4.6 MMOL/L (3.5-5.1); PTH INTACT 27.4 PG/ML (18.5-88.0); SODIUM LEVEL 139 MMOL/L (136-145); THYROID STIMULATING HORMONE 4.253 uIU/ML (0.55-4.78); TOTAL 25(OH) VITAMIN D 34.6 NG/ML (20.0-100.0); TOTAL PROTEIN 7.2 G/DL (5.7-8.2)
[2022-05-02 14:54] LABS: VITAMIN B12 LEVEL 1205 PG/ML (211-911)
[2022-05-02 14:59] LABS: FREE T4 1.14 NG/DL (0.89-1.76)
== END ==
LOC: M PLALAB 09:27
PROVIDERS: ATTEND Family Medicine
DX: E55.9 Vitamin D deficiency, unspecified (principal); E03.9 Hypothyroidism, unspecified; I10 Essential (primary) hypertension; M46.90 Unspecified inflammatory spondylopathy, site unspecified; D50.9 Iron deficiency anemia, unspecified; Z79.899 Other long term (current) drug therapy

== ENCOUNTER → 2022-10-06 | Outpatient (CLI) | payer MEDICARE ==
[~2022-10-06] MED LIST changes: +FLUT50SP17; -FLUTISP
[2022-10-06 10:27] LABS: BASO # 0.1 10^3/uL (0.0-0.2); BASO % 0.6 % (0.0-1.0); EOS % 0.3 % (0.0-3.0); HEMATOCRIT 38.4 % (36.0-47.0); LYMPH # 1.6 10^3/uL (1.5-5.0); MEAN CORPUSCULAR HEMOGLOBIN 30.8 pg (27.0-33.0); MEAN CORPUSCULAR HGB CONC 31.3 g/dl (32.0-36.5); MEAN CORPUSCULAR VOLUME 98.7 fl (80.0-96.0); MONO # 0.8 10^3/uL (0.0-0.8); MONO % 7.7 % (2.0-8.0); NEUTROPHILS # 7.6 10^3/uL (1.5-8.5); NEUTROPHILS % 74.6 % (36.0-66.0); PLATELET COUNT, AUTOMATED 290 10^3/uL (150-450); RED BLOOD COUNT 3.89 10^6/uL (4.00-5.40); WHITE BLOOD COUNT 10.1 10^3/uL (4.0-10.0)
[2022-10-06 10:48] LABS: ALKALINE PHOSPHATASE 106 U/L (46-116); ALT/SGPT 24 U/L (7.0-40); AST/SGOT 23 U/L (<34); BILIRUBIN,TOTAL 0.5 MG/DL (0.3-1.2); BLOOD UREA NITROGEN 15 MG/DL (9-23); CALCIUM LEVEL 9.6 MG/DL (8.3-10.6); CARBON DIOXIDE LEVEL 31 MMOL/L (20-31); CHLORIDE LEVEL 98 MMOL/L (98-107); CHOLESTEROL LEVEL 152 MG/DL (<200); CHOLESTEROL RISK RATIO 2.93 (<5); CREATININE FOR GFR 0.62 MG/DL (0.55-1.30); GLOMERULAR FILTRATION RATE > 60.0 (>39); GLUCOSE, FASTING 170 MG/DL (74-106); HDL CHOLESTEROL 51.8 MG/DL (>40); LDL CHOLESTEROL 70.6 MG/DL (<100); MAGNESIUM LEVEL 1.8 MG/DL (1.8-2.4); NON-HDL-C 100.2 MG/DL; POTASSIUM SERUM 4.9 MMOL/L (3.5-5.1); SODIUM LEVEL 136 MMOL/L (136-145); TOTAL PROTEIN 7.4 G/DL (5.7-8.2); TRIGLYCERIDES LEVEL 148 MG/DL (<150)
[2022-10-06 10:51] LABS: FERRITIN 85.6 NG/ML (7.3-270.7); FREE T4 1.24 NG/DL (0.89-1.76); THYROID STIMULATING HORMONE 2.813 uIU/ML (0.55-4.78)
[2022-10-06 10:58] LABS: VITAMIN B12 LEVEL > 2000 PG/ML (211-911)
== END ==
LOC: M PLALAB 09:02
PROVIDERS: ATTEND Family Medicine
DX: D50.9 Iron deficiency anemia, unspecified (principal); E78.5 Hyperlipidemia, unspecified; E03.9 Hypothyroidism, unspecified; I50.32 Chronic diastolic (congestive) heart failure

== ENCOUNTER → 2022-12-29 | Outpatient (CLI) | payer MEDICARE ==
[~2022-12-29] MED LIST changes: +DICY-61 PO; -DICY10CA13 PO
[2022-12-29 14:32] LABS: BASO # 0.1 10^3/uL (0.0-0.2); BASO % 0.7 % (0.0-1.0); EOS # 0.1 10^3/uL (0.0-0.5); EOS % 1.1 % (0.0-3.0); HEMATOCRIT 36.9 % (36.0-47.0); HEMOGLOBIN 11.3 g/dl (12.0-15.5); LYMPH # 1.8 10^3/uL (1.5-5.0); LYMPH % 20.7 % (24.0-44.0); MEAN CORPUSCULAR HEMOGLOBIN 30.6 pg (27.0-33.0); MEAN CORPUSCULAR HGB CONC 30.6 g/dl (32.0-36.5); MONO % 10.9 % (2.0-8.0); NEUTROPHILS # 5.7 10^3/uL (1.5-8.5); NEUTROPHILS % 65.8 % (36.0-66.0); PLATELET COUNT, AUTOMATED 222 10^3/uL (150-450); RED BLOOD COUNT 3.69 10^6/uL (4.00-5.40); WHITE BLOOD COUNT 8.7 10^3/uL (4.0-10.0)
[2022-12-29 14:51] LABS: ALBUMIN 3.8 G/DL (3.2-5.2); ALKALINE PHOSPHATASE 115 U/L (46-116); ALT/SGPT 31 U/L (7.0-40); AST/SGOT 38 U/L (<34); BILIRUBIN,TOTAL 0.5 MG/DL (0.3-1.2); BLOOD UREA NITROGEN 12 MG/DL (9-23); CALCIUM LEVEL 8.9 MG/DL (8.3-10.6); CARBON DIOXIDE LEVEL 27 MMOL/L (20-31); CHLORIDE LEVEL 102 MMOL/L (98-107); CHOLESTEROL LEVEL 104 MG/DL (<200); CHOLESTEROL RISK RATIO 2.28 (<5); CREATININE FOR GFR 0.67 MG/DL (0.55-1.30); GLOMERULAR FILTRATION RATE > 60.0 (>39); GLUCOSE, FASTING 156 MG/DL (74-106); HDL CHOLESTEROL 45.5 MG/DL (>40); IRON (FE) 71 UG/DL (50-170); LDL CHOLESTEROL 33.5 MG/DL (<100); MAGNESIUM LEVEL 1.8 MG/DL (1.8-2.4); NON-HDL-C 58.5 MG/DL; PERCENT SATURATION 24.8 % (13.2-45.0); POTASSIUM SERUM 4.8 MMOL/L (3.5-5.1); SODIUM LEVEL 138 MMOL/L (136-145); TOTAL IRON BINDING CAPACITY 286 UG/DL (250-425); TOTAL PROTEIN 6.9 G/DL (5.7-8.2); TRIGLYCERIDES LEVEL 125 MG/DL (<150)
[2022-12-29 14:52] LABS: FOLATE 19.48 NG/ML (>5.4); TOTAL 25(OH) VITAMIN D 29.3 NG/ML (20.0-100.0); VITAMIN B12 LEVEL 731 PG/ML (211-911)
[2022-12-29 14:53] LABS: FERRITIN 95.1 NG/ML (7.3-270.7)
[2022-12-29 14:54] LABS: FREE T4 1.18 NG/DL (0.89-1.76)
[2022-12-29 14:59] LABS: HEMOGLOBIN A1c 6.8 % (4.0-6.0)
== END ==
LOC: M PLALAB 09:22
PROVIDERS: ATTEND Family Medicine
DX: E03.9 Hypothyroidism, unspecified (principal); E78.5 Hyperlipidemia, unspecified; E55.9 Vitamin D deficiency, unspecified; D50.9 Iron deficiency anemia, unspecified; I10 Essential (primary) hypertension; E11.9 Type 2 diabetes mellitus without complications; E53.8 Deficiency of other specified B group vitamins; Z79.899 Other long term (current) drug therapy

== ENCOUNTER → 2023-01-04 | Outpatient (REF) | payer MEDICARE | LOC: M SFHCPLAZ 18:48 | PROVIDERS: ATTEND Family Medicine | DX: D50.9 Iron deficiency anemia, unspecified (principal); E03.9 Hypothyroidism, unspecified; E11.8 Type 2 diabetes mellitus with unspecified complications; E53.8 Deficiency of other specified B group vitamins; K76.0 Fatty (change of) liver, not elsewhere classified ==

== ENCOUNTER → 2023-04-10 | Outpatient (REF) | payer MEDICARE ==
[~2023-04-10] MED LIST changes: -ALLE1TAB23; +FEXO-157; -FLUT50SP17; +FLUTISP
== END ==
LOC: M SFHCPLAZ 10:24
PROVIDERS: ATTEND Family Medicine
DX: E03.9 Hypothyroidism, unspecified (principal); E53.8 Deficiency of other specified B group vitamins; D50.9 Iron deficiency anemia, unspecified; E11.8 Type 2 diabetes mellitus with unspecified complications; K76.0 Fatty (change of) liver, not elsewhere classified; M46.90 Unspecified inflammatory spondylopathy, site unspecified

== ENCOUNTER → 2023-06-01 | Outpatient (CLI) | payer MEDICARE ==
[~2023-06-01] MED LIST changes: +ISOVUE-300 61% 100ML VIAL As Ordered ONE; +LIDOCAINE 1% MDV 20ML VIAL As Ordered ONE; +methylPREDNISolone SUSP 40MG/ML 1ML VIAL (DEPO MEDROL) As Ordered ONE
== END ==
LOC: M RAD 10:09
PROVIDERS: ATTEND Physician Assistant
DX: M19.012 Primary osteoarthritis, left shoulder (principal)
CPT/HCPCS: 20610; 77002; J1030; Q9967

== ENCOUNTER → 2023-06-06 | Outpatient (CLI) | payer MEDICARE ==
[~2023-06-06] MED LIST changes: -ISOVUE-300 61% 100ML VIAL As Ordered ONE; -LIDOCAINE 1% MDV 20ML VIAL As Ordered ONE; -methylPREDNISolone SUSP 40MG/ML 1ML VIAL (DEPO MEDROL) As Ordered ONE
== END ==
LOC: M WHC 13:06
PROVIDERS: ATTEND Family Medicine
DX: Z12.31 Encounter for screening mammogram for malignant neoplasm of breast (principal)

== ENCOUNTER → 2023-07-17 | Outpatient (CLI) | payer MEDICARE ==
[~2023-07-17] MED LIST changes: +ISOVUE-300 61% 100ML VIAL As Ordered ONE; +LIDOCAINE 1% MDV 20ML VIAL As Ordered ONE; +methylPREDNISolone SUSP 40MG/ML 1ML VIAL (DEPO MEDROL) As Ordered ONE
== END ==
LOC: M RAD 13:37
PROVIDERS: ATTEND Physician Assistant
DX: M19.011 Primary osteoarthritis, right shoulder (principal)
CPT/HCPCS: 20610; 77002; J1030; Q9967

== ENCOUNTER → 2023-09-21 | Outpatient (REF) | payer MEDICARE ==
[~2023-09-21] MED LIST changes: -ISOVUE-300 61% 100ML VIAL As Ordered ONE; -LIDOCAINE 1% MDV 20ML VIAL As Ordered ONE; -ROSU10TA6 PO; +ROSU10TA61 PO; -methylPREDNISolone SUSP 40MG/ML 1ML VIAL (DEPO MEDROL) As Ordered ONE
== END ==
LOC: M SFHCRHEU 11:54
PROVIDERS: ATTEND Internal Medicine
DX: M25.50 Pain in unspecified joint (principal)

== ENCOUNTER → 2023-10-02 | Outpatient (CLI) | payer MEDICARE ==
[2023-10-02 13:00] LABS: BASO # 0.1 10^3/uL (0.0-0.2); EOS # 0.1 10^3/uL (0.0-0.5); EOS % 1.3 % (0.0-3.0); HEMATOCRIT 38.5 % (36.0-47.0); HEMOGLOBIN 11.8 g/dl (12.0-15.5); LYMPH # 2.6 10^3/uL (1.5-5.0); LYMPH % 31.3 % (24.0-44.0); MEAN CORPUSCULAR HEMOGLOBIN 31.1 pg (27.0-33.0); MEAN CORPUSCULAR HGB CONC 30.6 g/dl (32.0-36.5); MEAN CORPUSCULAR VOLUME 101.3 fl (80.0-96.0); NEUTROPHILS # 4.5 10^3/uL (1.5-8.5); NEUTROPHILS % 53.6 % (36.0-66.0); PLATELET COUNT, AUTOMATED 260 10^3/uL (150-450); WHITE BLOOD COUNT 8.4 10^3/uL (4.0-10.0)
[2023-10-02 13:26] LABS: C REACTIVE PROTEIN QUANTITATIV < 0.40 MG/DL (<1.0); THYROID STIMULATING HORMONE 3.806 uIU/ML (0.55-4.78)
[2023-10-02 13:26] LABS: CREATININE, URINE 89.9 MG/DL; MAU/CREAT RATIO 88.9 MCG/MG (0.0-30.0)
[2023-10-02 13:27] LABS: ALBUMIN 3.6 G/DL (3.2-5.2); ALKALINE PHOSPHATASE 93 U/L (46-116); ALT/SGPT 27 U/L (7.0-40); AST/SGOT 32 U/L (<34); BILIRUBIN,TOTAL 0.4 MG/DL (0.3-1.2); BLOOD UREA NITROGEN 15 MG/DL (9-23); CALCIUM LEVEL 9.5 MG/DL (8.3-10.6); CARBON DIOXIDE LEVEL 29 MMOL/L (20-31); CHLORIDE LEVEL 105 MMOL/L (98-107); FERRITIN 90.4 NG/ML (7.3-270.7); FREE T4 1.24 NG/DL (0.89-1.76); GLOMERULAR FILTRATION RATE > 60.0 (>39); GLUCOSE, FASTING 157 MG/DL (74-106); MAGNESIUM LEVEL 1.8 MG/DL (1.8-2.4); POTASSIUM SERUM 5.1 MMOL/L (3.5-5.1); SODIUM LEVEL 140 MMOL/L (136-145); TOTAL PROTEIN 6.8 G/DL (5.7-8.2)
[2023-10-04 16:04] LABS: ERYTHROCYTE SEDIMENTATION RATE 34 mm/hr (0-30)
== END ==
LOC: M PLALAB 09:54
PROVIDERS: ATTEND Family Medicine
DX: M46.90 Unspecified inflammatory spondylopathy, site unspecified (principal); D50.9 Iron deficiency anemia, unspecified; I50.32 Chronic diastolic (congestive) heart failure; E11.8 Type 2 diabetes mellitus with unspecified complications; I48.0 Paroxysmal atrial fibrillation; Z79.899 Other long term (current) drug therapy

== ENCOUNTER → 2023-10-29 | Outpatient (CLI) | payer MEDICARE | LOC: M PLALAB 14:45 | PROVIDERS: ATTEND Internal Medicine | DX: M35.3 Polymyalgia rheumatica (principal) ==

== ENCOUNTER 2023-11-17 12:56 | Inpatient (IN) | payer MEDICARE ==
[~2023-11-17] VITALS: Ht 160 cm; Wt 117.9 kg
[~2023-11-17 12:56] MED LIST changes: -FLUTISP; +FLUTISP NARES
[2023-11-17] MEDS: HYDROMORPHONE HCL 0.5 MG/ 0.5 ML SYRINGE IV PRN ×2 (13:59→20:25)
[2023-11-17] MEDS: ONDANSETRON 4MG 2ML VIAL IV ONE (13:59)
[2023-11-17 14:50] LABS: BASO # 0.1 10^3/uL (0.0-0.2); BASO % 0.8 % (0.0-1.0); EOS # 0.1 10^3/uL (0.0-0.5); EOS % 0.9 % (0.0-3.0); HEMATOCRIT 33.1 % (36.0-47.0); HEMOGLOBIN 10.4 g/dl (12.0-15.5); LYMPH # 1.5 10^3/uL (1.5-5.0); LYMPH % 16.5 % (24.0-44.0); MEAN CORPUSCULAR HEMOGLOBIN 32.2 pg (27.0-33.0); MEAN CORPUSCULAR HGB CONC 31.4 g/dl (32.0-36.5); MEAN CORPUSCULAR VOLUME 102.5 fl (80.0-96.0); MONO % 10.6 % (2.0-8.0); NEUTROPHILS # 6.4 10^3/uL (1.5-8.5); NEUTROPHILS % 70.5 % (36.0-66.0); PLATELET COUNT, AUTOMATED 221 10^3/uL (150-450); RED BLOOD COUNT 3.23 10^6/uL (4.00-5.40)
[2023-11-17 15:03] LABS: INR 1.31; PARTIAL THROMBOPLASTIN TIME 26.7 SECONDS (24.8-34.2); PROTHROMBIN TIME 15.9 SECONDS (12.5-14.5)
[2023-11-17 15:22] LABS: BLOOD UREA NITROGEN 12 MG/DL (9-23); CALCIUM LEVEL 8.9 MG/DL (8.3-10.6); CARBON DIOXIDE LEVEL 26 MMOL/L (20-31); CHLORIDE LEVEL 105 MMOL/L (98-107); CREATININE FOR GFR 0.84 MG/DL (0.55-1.30); GLOMERULAR FILTRATION RATE > 60.0 (>39); GLUCOSE, FASTING 146 MG/DL (74-106); POTASSIUM SERUM 4.9 MMOL/L (3.5-5.1); SODIUM LEVEL 138 MMOL/L (136-145)
[2023-11-17] MEDS: LIDOCAINE 2% MDV 20ML VIAL SC ONE (15:38)
[2023-11-17] MEDS ORDERED: GLUCOSE 4 GM CHEW PO PRN (16:00)
[2023-11-17] MEDS ORDERED: DEXTROSE 50% 50ML SYRINGE IV PRN (16:00)
[2023-11-17] MEDS ORDERED: GLUCAGON INJ 1MG VIAL SC PRN (16:00)
[2023-11-17] MEDS: ceFAZolin SOD 2 GM in IV 1 EA IV ONE (16:02)
[2023-11-17] MEDS: BOOSTRIX VACCINE (TETANUS/DIPHTH/ACEL. PERTUSSIS) 0.5ML SYR IM.IMMUN ONE (16:03)
[2023-11-17] MEDS ORDERED: MAGN400T2 PO (16:08)
[2023-11-17] MEDS ORDERED: FLUT1BLS8 IH (16:08)
[2023-11-17] MEDS ORDERED: ROSU10TA61 PO (16:08)
[2023-11-17] MEDS ORDERED: HOME MED LIST COMPLETE! XX SCH (16:15)
[2023-11-17] MEDS ORDERED: DICYCLOMINE 10 MG CAP PO PRN (16:45)
[2023-11-17] MEDS ORDERED: FEXOFENADINE 60MG TAB PO PRN (16:45)
[2023-11-17 17:30] VITALS: BP 132/68; TEMP 97.7; O2SAT 98
[2023-11-17] MEDS: INSULIN LISPRO (NovoLOG) PER UNIT SC SCH ×2 (17:30→21:00)
[2023-11-17] MEDS: SYMBICORT 160/4.5MCG INHALER 6GM INH SCH (19:18)
[2023-11-17 20:06] VITALS: BP 111/69; TEMP 97.9; O2SAT 98
[2023-11-17] MEDS: CYCLOBENZAPRINE 10MG TABLET PO SCH (20:25)
[2023-11-17] MEDS ORDERED: NALOXONE INJ 0.4MG/1ML VIAL IV PRN (20:40)
[2023-11-17] MEDS: METOPROLOL SUCC (TopROL XL) 100MG *XL* TAB PO SCH (21:00)
[2023-11-17] MEDS: ONDANSETRON 4MG 2ML VIAL IV PRN (21:22)
[2023-11-17] MEDS: OMEPRAZOLE 20MG CAP PO SCH (21:22)
[2023-11-17] MEDS: sulfaSALAzine 500 MG TABEC PO SCH (21:22)
[2023-11-17] MEDS: MAGNESIUM OXIDE 400MG TAB (MAG-OX) PO SCH (21:22)
[2023-11-17 21:49] LABS: ALBUMIN 3.2 G/DL (3.2-5.2); BILIRUBIN,DIRECT 0.3 MG/DL (<0.4); BILIRUBIN,TOTAL 0.6 MG/DL (0.3-1.2); MAGNESIUM LEVEL 1.8 MG/DL (1.8-2.4); TOTAL PROTEIN 5.8 G/DL (5.7-8.2)
[2023-11-17] MEDS: ceFAZolin SOD 2 GM in IV 1 EA IV SCH (23:33)
[2023-11-17] MEDS: ALBUTEROL 90 MCG/ACT 8GM HFA INHALER INH PRN (23:59)
[2023-11-18] VITALS (14 sets, daily range): BP systolic 113–135; BP diastolic 52–83; TEMP 97–97.7; O2SAT 96–99
[2023-11-18] MEDS: LEVOTHYROXINE 100MCG TABLET (0.1MG) PO SCH (05:40)
[2023-11-18 07:01] LABS: HEMATOCRIT 25.8 % (36.0-47.0); MEAN CORPUSCULAR HEMOGLOBIN 32.2 pg (27.0-33.0); MEAN CORPUSCULAR HGB CONC 32.2 g/dl (32.0-36.5); PLATELET COUNT, AUTOMATED 202 10^3/uL (150-450); RED BLOOD COUNT 2.58 10^6/uL (4.00-5.40)
[2023-11-18 07:07] LABS: HEMOGLOBIN 8.3 g/dl (12.0-15.5)
[2023-11-18 07:19] LABS: BLOOD UREA NITROGEN 15 MG/DL (9-23); CALCIUM LEVEL 8.4 MG/DL (8.3-10.6); CARBON DIOXIDE LEVEL 25 MMOL/L (20-31); CHLORIDE LEVEL 103 MMOL/L (98-107); CREATININE FOR GFR 0.88 MG/DL (0.55-1.30); GLOMERULAR FILTRATION RATE > 60.0 (>39); GLUCOSE, FASTING 166 MG/DL (74-106); POTASSIUM SERUM 4.2 MMOL/L (3.5-5.1); SODIUM LEVEL 137 MMOL/L (136-145)
[2023-11-18] MEDS: DIGOXIN 0.125 MG TAB PO SCH (08:30)
[2023-11-18] MEDS: SERTRALINE 100 MG TAB PO SCH (08:35)
[2023-11-18] MEDS ORDERED: HYDROCORTISONE 100MG/2ML VIAL IV ONE (09:00)
[2023-11-18] MEDS ORDERED: ONDANSETRON 4MG 2ML VIAL As Ordered ONE (10:24)
[2023-11-18] MEDS ORDERED: LIDOCAINE 2% 100MG/5ML SDV (FOR ANES.) As Ordered ONE (10:24)
[2023-11-18] MEDS ORDERED: propofoL 200 MG/20 ML VIAL As Ordered ONE (10:24)
[2023-11-18] MEDS ORDERED: KETOROLAC 60MG 2ML VIAL As Ordered ONE (10:25)
[2023-11-18] MEDS ORDERED: fentaNYL 100 MCG/2 ML INJECTION As Ordered ONE (10:25)
[2023-11-18] MEDS ORDERED: ESMOLOL INJ 100MG/10ML VIAL As Ordered ONE (11:00)
[2023-11-18] MEDS: ceFAZolin 1GM VIAL As Ordered ONE (11:00)
[2023-11-18] MEDS ORDERED: fentaNYL 100 MCG/2 ML INJECTION IV PRN (14:00)
[2023-11-18] MEDS ORDERED: oxyCODONE 5MG TAB PO PRN (14:00)
[2023-11-18] MEDS ORDERED: METOPROLOL 5 MG/5 ML VIAL As Ordered ONE (14:04)
[2023-11-18] MEDS ORDERED: DIGOXIN INJ 0.5 MG/2 ML AMP As Ordered ONE (14:08)
[2023-11-18] MEDS ORDERED: METOPROLOL 5 MG/5 ML VIAL IV STA ×2 (14:09)
[2023-11-18] MEDS: DIGOXIN INJ 0.5 MG/2 ML AMP IV ONE (14:11)
[2023-11-18] MEDS: MORPHINE 2 MG/ML 1ML VIAL IV PRN (14:21)
[2023-11-18] MEDS: INSULIN LISPRO (NovoLOG) PER UNIT SC PRN (14:22)
[2023-11-18] MEDS: ONDANSETRON 4MG 2ML VIAL IV PRN (14:24)
[2023-11-18] MEDS: LR 1,000 ML IV ONE (14:31)
[2023-11-18 14:54] LABS: BASO % 0.3 % (0.0-1.0); HEMATOCRIT 22.3 % (36.0-47.0); HEMOGLOBIN 7.1 g/dl (12.0-15.5); LYMPH # 0.7 10^3/uL (1.5-5.0); LYMPH % 6.5 % (24.0-44.0); MEAN CORPUSCULAR HEMOGLOBIN 32.4 pg (27.0-33.0); MEAN CORPUSCULAR HGB CONC 31.8 g/dl (32.0-36.5); MEAN CORPUSCULAR VOLUME 101.8 fl (80.0-96.0); MONO # 1.2 10^3/uL (0.0-0.8); MONO % 12.1 % (2.0-8.0); NEUTROPHILS # 8.1 10^3/uL (1.5-8.5); NEUTROPHILS % 80.1 % (36.0-66.0); PLATELET COUNT, AUTOMATED 170 10^3/uL (150-450); RED BLOOD COUNT 2.19 10^6/uL (4.00-5.40); WHITE BLOOD COUNT 10.2 10^3/uL (4.0-10.0)
[2023-11-18] MEDS: HYDROCORTISONE 100MG/2ML VIAL IV SCH ×2 (15:00→21:11)
[2023-11-18] MEDS: HYDROCORTISONE 100MG/2ML VIAL IV ONE (16:00)
[2023-11-18] MEDS: MAG SULF 1GM/100ML (MAG RUN) 1 GM in IV 1 EA IV ONE (17:57)
[2023-11-18 20:18] LABS: HEMOGLOBIN 7.4 g/dl (12.0-15.5)
[2023-11-19] VITALS (19 sets, daily range): BP systolic 111–131; BP diastolic 55–79; TEMP 97–99.3; O2SAT 93–98
[2023-11-19 08:32] LABS: ALBUMIN 2.6 G/DL (3.2-5.2); BILIRUBIN,TOTAL 0.5 MG/DL (0.3-1.2); CREATININE FOR GFR 1.01 MG/DL (0.55-1.30); GLOMERULAR FILTRATION RATE 56.6 (>39); MAGNESIUM LEVEL 2.2 MG/DL (1.8-2.4); POTASSIUM SERUM 4.5 MMOL/L (3.5-5.1); TOTAL PROTEIN 5.1 G/DL (5.7-8.2)
[2023-11-19] MEDS ORDERED: DABIGATRAN ETEXILATE 75 MG CAP (PRADAXA) PO SCH (09:00)
[2023-11-19 11:15] LABS: HEMATOCRIT 21.1 % (36.0-47.0); MEAN CORPUSCULAR HEMOGLOBIN 32.1 pg (27.0-33.0); MEAN CORPUSCULAR HGB CONC 32.2 g/dl (32.0-36.5); MEAN CORPUSCULAR VOLUME 99.5 fl (80.0-96.0); PLATELET COUNT, AUTOMATED 160 10^3/uL (150-450); RED BLOOD COUNT 2.12 10^6/uL (4.00-5.40); WHITE BLOOD COUNT 13.3 10^3/uL (4.0-10.0)
[2023-11-19 11:20] LABS: HEMOGLOBIN 6.8 g/dl (12.0-15.5)
[2023-11-19 12:22] LABS: ANISOCYTOSIS 1+; ATYPICAL LYMPH 5 % (0-5); HYPOCHROMASIA 2+; LYMPHOCYTES 7 % (16-44); MONOCYTES 12 % (0-5); NEUTROPHILS 71 % (28-66)
[2023-11-19] MEDS: predniSONE 5 MG TAB PO SCH (12:22)
[2023-11-19 12:23] LABS: PLATELET ESTIMATE NORMAL (NORMAL)
[2023-11-19 12:42] LABS: PERCENT SATURATION 8.6 % (13.2-45.0)
[2023-11-19 12:43] LABS: FOLATE 11.7 NG/ML (>5.4)
[2023-11-19 12:44] LABS: FERRITIN 261.3 NG/ML (7.3-270.7)
[2023-11-19 20:05] LABS: HEMOGLOBIN 8.4 g/dl (12.0-15.5)
[2023-11-19] MEDS: DABIGATRAN ETEXILATE 75 MG CAP (PRADAXA) PO SCH (20:25)
[2023-11-20] VITALS: BP 115/55; TEMP 97; O2SAT 95
[2023-11-20 03:17] VITALS: BP_SYST 108; BP_SYST 129; BP_DIAS 54; BP_DIAS 60; TEMP 97.6; TEMP 97.8; O2SAT 96; O2SAT 99
[2023-11-20 07:44] LABS: BASO % 0.4 % (0.0-1.0); EOS # 0.1 10^3/uL (0.0-0.5); EOS % 0.4 % (0.0-3.0); HEMATOCRIT 24.8 % (36.0-47.0); LYMPH # 1.6 10^3/uL (1.5-5.0); MEAN CORPUSCULAR HEMOGLOBIN 31.3 pg (27.0-33.0); MEAN CORPUSCULAR HGB CONC 32.3 g/dl (32.0-36.5); MEAN CORPUSCULAR VOLUME 96.9 fl (80.0-96.0); MONO # 1.5 10^3/uL (0.0-0.8); MONO % 13.3 % (2.0-8.0); NEUTROPHILS # 7.9 10^3/uL (1.5-8.5); NEUTROPHILS % 70.5 % (36.0-66.0); PLATELET COUNT, AUTOMATED 144 10^3/uL (150-450); RED BLOOD COUNT 2.56 10^6/uL (4.00-5.40); WHITE BLOOD COUNT 11.2 10^3/uL (4.0-10.0)
[2023-11-20 08:08] LABS: BLOOD UREA NITROGEN 16 MG/DL (9-23); CALCIUM LEVEL 7.8 MG/DL (8.3-10.6); CARBON DIOXIDE LEVEL 30 MMOL/L (20-31); CHLORIDE LEVEL 106 MMOL/L (98-107); CREATININE FOR GFR 0.67 MG/DL (0.55-1.30); GLOMERULAR FILTRATION RATE > 60.0 (>39); GLUCOSE, FASTING 193 MG/DL (74-106); POTASSIUM SERUM 4.4 MMOL/L (3.5-5.1); SODIUM LEVEL 138 MMOL/L (136-145)
[2023-11-20] MEDS ORDERED: MIRALAX *UNIT DOSE* 17GM PACKET PO PRN (08:50)
[2023-11-20] MEDS: PERCOCET 5MG/325MG TAB PO STA (09:05)
[2023-11-20] MEDS: SENOKOT S TAB PO SCH (10:48)
[2023-11-20] MEDS: FERRIC CARBOXYMALTOSE INJ 750 MG, VIAL MATE ADAPTER 1 EACH in NS 250 ML IV STA (11:21)
[2023-11-20 12:00] VITALS: BP 116/55; TEMP 97.5; O2SAT 99
[2023-11-20] MEDS: PERCOCET 5MG/325MG TAB PO PRN (14:11)
[2023-11-20 16:10] VITALS: BP 122/57; TEMP 97; O2SAT 98
[2023-11-20 20:00] VITALS: BP 108/63; TEMP 98; O2SAT 98
[2023-11-21] VITALS (9 sets, daily range): BP systolic 105–145; BP diastolic 52–69; TEMP 97–98.6; O2SAT 96–100
[2023-11-21 05:13] LABS: BASO % 0.4 % (0.0-1.0); EOS # 0.1 10^3/uL (0.0-0.5); EOS % 0.8 % (0.0-3.0); HEMATOCRIT 25.1 % (36.0-47.0); HEMOGLOBIN 7.7 g/dl (12.0-15.5); LYMPH % 20.5 % (24.0-44.0); MEAN CORPUSCULAR HEMOGLOBIN 30.8 pg (27.0-33.0); MEAN CORPUSCULAR HGB CONC 30.7 g/dl (32.0-36.5); MEAN CORPUSCULAR VOLUME 100.4 fl (80.0-96.0); MONO # 1.3 10^3/uL (0.0-0.8); NEUTROPHILS # 6.3 10^3/uL (1.5-8.5); NEUTROPHILS % 63.8 % (36.0-66.0); PLATELET COUNT, AUTOMATED 171 10^3/uL (150-450); WHITE BLOOD COUNT 9.9 10^3/uL (4.0-10.0)
[2023-11-21 05:39] LABS: BLOOD UREA NITROGEN 11 MG/DL (9-23); CALCIUM LEVEL 7.7 MG/DL (8.3-10.6); CARBON DIOXIDE LEVEL 29 MMOL/L (20-31); CHLORIDE LEVEL 107 MMOL/L (98-107); CREATININE FOR GFR 0.61 MG/DL (0.55-1.30); GLOMERULAR FILTRATION RATE > 60.0 (>39); GLUCOSE, FASTING 139 MG/DL (74-106); POTASSIUM SERUM 4.2 MMOL/L (3.5-5.1); SODIUM LEVEL 139 MMOL/L (136-145)
[2023-11-21] MEDS: FERROUS SULFATE 325MG TAB PO SCH (08:29)
[2023-11-21] MEDS: MOM 30ML SUSPENSION UDC PO PRN (10:30)
[2023-11-21 12:37] LABS: HEMATOCRIT 28.2 % (36.0-47.0)
[2023-11-21] MEDS: BISACODYL 10MG SUPP PR ONE (13:54)
[2023-11-21] MEDS: LACTULOSE 20GM/30ML SYRUP UDC PO SCH (13:54)
[2023-11-21] MEDS: BISACODYL ENEMA 10MG/30ML PR SCH (19:05)
[2023-11-21] MEDS: FLEET ENEMA PR SCH (20:30)
[2023-11-22 05:05] VITALS: BP 129/71; TEMP 97.7; O2SAT 95
[2023-11-22 06:23] LABS: BASO # 0.1 10^3/uL (0.0-0.2); BASO % 0.6 % (0.0-1.0); EOS # 0.1 10^3/uL (0.0-0.5); HEMATOCRIT 27.1 % (36.0-47.0); HEMOGLOBIN 8.7 g/dl (12.0-15.5); LYMPH # 1.8 10^3/uL (1.5-5.0); LYMPH % 17.9 % (24.0-44.0); MEAN CORPUSCULAR HEMOGLOBIN 31.4 pg (27.0-33.0); MEAN CORPUSCULAR HGB CONC 32.1 g/dl (32.0-36.5); MEAN CORPUSCULAR VOLUME 97.8 fl (80.0-96.0); MONO # 1.4 10^3/uL (0.0-0.8); MONO % 13.9 % (2.0-8.0); NEUTROPHILS # 6.5 10^3/uL (1.5-8.5); NEUTROPHILS % 63.7 % (36.0-66.0); PLATELET COUNT, AUTOMATED 207 10^3/uL (150-450); RED BLOOD COUNT 2.77 10^6/uL (4.00-5.40); WHITE BLOOD COUNT 10.3 10^3/uL (4.0-10.0)
[2023-11-22 06:49] LABS: BLOOD UREA NITROGEN 9 MG/DL (9-23); CARBON DIOXIDE LEVEL 29 MMOL/L (20-31); CHLORIDE LEVEL 103 MMOL/L (98-107); GLOMERULAR FILTRATION RATE > 60.0 (>39); GLUCOSE, FASTING 143 MG/DL (74-106); POTASSIUM SERUM 4.1 MMOL/L (3.5-5.1); SODIUM LEVEL 137 MMOL/L (136-145)
[2023-11-22] MEDS: MIRALAX *UNIT DOSE* 17GM PACKET PO SCH (08:31)
[2023-11-22] MEDS ORDERED: FERR1TAB8 PO (08:43)
[2023-11-22] MEDS ORDERED: PERCOCET PO (08:43)
[2023-11-22] MEDS ORDERED: SENN-52 PO (08:43)
[2023-11-22] MEDS ORDERED: MIRA33506 PO (08:43)
[2023-11-22] MEDS ORDERED: PRED5TA PO (08:43)
[2023-11-22 20:46] VITALS: BP 128/79; TEMP 97.5; O2SAT 93
[2023-11-22] MEDS: PERCOCET 5MG/325MG TAB PO PRN (21:06)
[2023-11-23 04:42] VITALS: BP 121/84; TEMP 97.7; O2SAT 96
[2023-11-23 06:40] LABS: BASO # 0.1 10^3/uL (0.0-0.2); BASO % 0.8 % (0.0-1.0); EOS # 0.1 10^3/uL (0.0-0.5); EOS % 1.4 % (0.0-3.0); HEMATOCRIT 29.3 % (36.0-47.0); HEMOGLOBIN 9.3 g/dl (12.0-15.5); LYMPH # 1.6 10^3/uL (1.5-5.0); LYMPH % 16.1 % (24.0-44.0); MEAN CORPUSCULAR HEMOGLOBIN 31.7 pg (27.0-33.0); MEAN CORPUSCULAR HGB CONC 31.7 g/dl (32.0-36.5); MONO # 1.4 10^3/uL (0.0-0.8); MONO % 13.9 % (2.0-8.0); NEUTROPHILS # 6.5 10^3/uL (1.5-8.5); PLATELET COUNT, AUTOMATED 233 10^3/uL (150-450); RED BLOOD COUNT 2.93 10^6/uL (4.00-5.40); WHITE BLOOD COUNT 10.1 10^3/uL (4.0-10.0)
[2023-11-23 07:09] LABS: BLOOD UREA NITROGEN 10 MG/DL (9-23); CARBON DIOXIDE LEVEL 29 MMOL/L (20-31); CHLORIDE LEVEL 102 MMOL/L (98-107); CREATININE FOR GFR 0.56 MG/DL (0.55-1.30); GLOMERULAR FILTRATION RATE > 60.0 (>39); GLUCOSE, FASTING 160 MG/DL (74-106); MAGNESIUM LEVEL 1.9 MG/DL (1.8-2.4); POTASSIUM SERUM 4.3 MMOL/L (3.5-5.1); SODIUM LEVEL 136 MMOL/L (136-145)
[2023-11-23 08:14] VITALS: BP 119/79
[2023-11-23 12:15] VITALS: BP 112/58; TEMP 97.9; O2SAT 96
== END 2023-11-23 14:00 | disposition home or self-care (01) | DRG 470 ==
LOC: EDBD 12:56 → M ED 12:56 → M ED INP 15:41 → M MS5PR 16:45 → M PCU 11-18 14:58 → M MS5PR 11-21 22:50
PROVIDERS: ADMIT Internal Medicine; ATTEND Internal Medicine
PROC: 0QSC04Z Reposition Left Lower Femur with Internal Fixation Device, Open Approach (ICD-10-PCS; 2023-11-18)
PROC: 30233N1 Transfusion of Nonautologous Red Blood Cells into Peripheral Vein, Percutaneous Approach (ICD-10-PCS; 2023-11-18)
PROC: 0SRD0JZ Replacement of Left Knee Joint with Synthetic Substitute, Open Approach (ICD-10-PCS; principal; 2023-11-18 09:00)
DX: M97.8XXA Periprosthetic fracture around other internal prosthetic joint, initial encounter (principal); I48.19 Other persistent atrial fibrillation; K50.90 Crohn's disease, unspecified, without complications; D62 Acute posthemorrhagic anemia; E03.9 Hypothyroidism, unspecified; E11.9 Type 2 diabetes mellitus without complications; I10 Essential (primary) hypertension; J45.909 Unspecified asthma, uncomplicated; M35.3 Polymyalgia rheumatica; K21.9 Gastro-esophageal reflux disease without esophagitis; Z96.649 Presence of unspecified artificial hip joint; Z98.84 Bariatric surgery status; Z79.52 Long term (current) use of systemic steroids; Z88.5 Allergy status to narcotic agent; Z88.8 Allergy status to other drugs, medicaments and biological substances; Z79.82 Long term (current) use of aspirin; Z79.899 Other long term (current) drug therapy; M54.59 Other low back pain; K59.00 Constipation, unspecified

== ENCOUNTER 2023-12-05 10:52 | Inpatient (IN) | payer MEDICARE ==
[~2023-12-05] VITALS: Ht 161.3 cm; Wt 103.1 kg
[~2023-12-05 10:52] MED LIST changes: +FERR1TAB8 PO; -FEXO-157; +FEXO-63; +FLUT1BLS8 INH; +MAGN400T2 PO; +MIRA33506 PO; +PERCOCET PO; +PRED5TA PO; +SENN-52 PO
[2023-12-05 17:00] VITALS: BP 126/67; TEMP 97.5; O2SAT 97
[2023-12-05] MEDS ORDERED: MOM 30ML SUSPENSION UDC PO PRN (17:10)
[2023-12-05] MEDS ORDERED: oxyCODONE 5MG TAB PO PRN (17:40)
[2023-12-05 17:54] LABS: BASO # 0.1 10^3/uL (0.0-0.2); BASO % 1.1 % (0.0-1.0); EOS % 0.3 % (0.0-3.0); HEMATOCRIT 33.6 % (36.0-47.0); HEMOGLOBIN 10.6 g/dl (12.0-15.5); LYMPH # 1.1 10^3/uL (1.5-5.0); LYMPH % 14.1 % (24.0-44.0); MEAN CORPUSCULAR HEMOGLOBIN 32.2 pg (27.0-33.0); MEAN CORPUSCULAR HGB CONC 31.5 g/dl (32.0-36.5); MEAN CORPUSCULAR VOLUME 102.1 fl (80.0-96.0); MONO # 0.9 10^3/uL (0.0-0.8); MONO % 10.6 % (2.0-8.0); NEUTROPHILS # 5.9 10^3/uL (1.5-8.5); NEUTROPHILS % 73.3 % (36.0-66.0); PLATELET COUNT, AUTOMATED 535 10^3/uL (150-450); RED BLOOD COUNT 3.29 10^6/uL (4.00-5.40)
[2023-12-05 18:08] LABS: INR 1.29; PROTHROMBIN TIME 15.7 SECONDS (12.5-14.5)
[2023-12-05 18:16] LABS: ALBUMIN 3.1 G/DL (3.2-5.2); ALKALINE PHOSPHATASE 245 U/L (46-116); ALT/SGPT 12 U/L (7.0-40); AST/SGOT 22 U/L (<34); BILIRUBIN,TOTAL 0.6 MG/DL (0.3-1.2); BLOOD UREA NITROGEN 10 MG/DL (9-23); CALCIUM LEVEL 8.6 MG/DL (8.3-10.6); CARBON DIOXIDE LEVEL 29 MMOL/L (20-31); CHLORIDE LEVEL 99 MMOL/L (98-107); GLOMERULAR FILTRATION RATE > 60.0 (>39); GLUCOSE, FASTING 123 MG/DL (74-106); POTASSIUM SERUM 4.3 MMOL/L (3.5-5.1); SODIUM LEVEL 136 MMOL/L (136-145); TOTAL PROTEIN 6.3 G/DL (5.7-8.2)
[2023-12-05] MEDS: DOCUSATE SODIUM 100MG CAPSULE PO SCH (20:26)
[2023-12-05] MEDS: oxyCODONE 5MG TAB PO PRN (20:27)
[2023-12-05 20:30] VITALS: BP 127/68; TEMP 98.1; O2SAT 96
[2023-12-05] MEDS: ACETAMINOPHEN TAB 650MG DOSE (2X325MG) PO PRN (21:24)
[2023-12-06] MEDS ORDERED: DICY1CAP8 PO (01:44)
[2023-12-06] MEDS ORDERED: PRED5TA PO (01:44)
[2023-12-06] MEDS ORDERED: PERCOCET PO (01:44)
[2023-12-06] MEDS ORDERED: MIRA33506 PO (01:44)
[2023-12-06] MEDS ORDERED: CYCL5TAB PO (01:44)
[2023-12-06] MEDS ORDERED: FAMO40TA3 PO (01:44)
[2023-12-06] MEDS ORDERED: HOME MED LIST COMPLETE! XX SCH (01:45)
[2023-12-06 05:26] VITALS: BP 130/60; TEMP 98.1; O2SAT 96
[2023-12-06 06:31] LABS: HEMATOCRIT 33.5 % (36.0-47.0); HEMOGLOBIN 10.6 g/dl (12.0-15.5); MEAN CORPUSCULAR HEMOGLOBIN 32.4 pg (27.0-33.0); MEAN CORPUSCULAR HGB CONC 31.6 g/dl (32.0-36.5); MEAN CORPUSCULAR VOLUME 102.4 fl (80.0-96.0); PLATELET COUNT, AUTOMATED 457 10^3/uL (150-450); RED BLOOD COUNT 3.27 10^6/uL (4.00-5.40); WHITE BLOOD COUNT 9.4 10^3/uL (4.0-10.0)
[2023-12-06 07:05] LABS: BLOOD UREA NITROGEN 11 MG/DL (9-23); CALCIUM LEVEL 8.3 MG/DL (8.3-10.6); CARBON DIOXIDE LEVEL 34 MMOL/L (20-31); CHLORIDE LEVEL 98 MMOL/L (98-107); CREATININE FOR GFR 0.63 MG/DL (0.55-1.30); GLOMERULAR FILTRATION RATE > 60.0 (>39); GLUCOSE, FASTING 153 MG/DL (74-106); SODIUM LEVEL 134 MMOL/L (136-145)
[2023-12-06] MEDS ORDERED: DICYCLOMINE 10 MG CAP PO PRN ×2 (07:20)
[2023-12-06] MEDS ORDERED: FEXOFENADINE 60MG TAB PO PRN (07:20)
[2023-12-06] MEDS ORDERED: ALBUTEROL 90 MCG/ACT 8GM HFA INHALER INH PRN (07:20)
[2023-12-06] MEDS: LEVOTHYROXINE 100MCG TABLET (0.1MG) PO SCH (08:35)
[2023-12-06] MEDS: METOPROLOL SUCC (TopROL XL) 100MG *XL* TAB PO SCH (08:35)
[2023-12-06] MEDS: predniSONE 5 MG TAB PO SCH (08:35)
[2023-12-06] MEDS: OMEPRAZOLE 20MG CAP PO SCH (08:35)
[2023-12-06] MEDS: sulfaSALAzine 500 MG TABEC PO SCH (08:36)
[2023-12-06] MEDS: DIGOXIN 0.125 MG TAB PO SCH (08:36)
[2023-12-06] MEDS: ADVAIR HFA 230/21MCG INHALER INH SCH (11:43)
[2023-12-06 12:15] VITALS: BP 131/82; TEMP 97.7; O2SAT 98
[2023-12-06] MEDS ORDERED: propofoL 200 MG/20 ML VIAL As Ordered ONE (14:32)
[2023-12-06] MEDS ORDERED: fentaNYL 100 MCG/2 ML INJECTION As Ordered ONE (14:32)
[2023-12-06] MEDS ORDERED: ROCURONIUM BROMIDE 50MG/5ML VIAL As Ordered ONE (14:32)
[2023-12-06] MEDS ORDERED: LIDOCAINE 2% 100MG/5ML SDV (FOR ANES.) As Ordered ONE (14:32)
[2023-12-06] MEDS ORDERED: ONDANSETRON 4MG 2ML VIAL As Ordered ONE (14:32)
[2023-12-06] MEDS ORDERED: MIDAZOLAM INJ 2MG/2ML VIAL As Ordered ONE (16:26)
[2023-12-06] MEDS ORDERED: ACETAMINOPHEN 1000MG 100ML IV BAG As Ordered ONE (17:27)
[2023-12-06] MEDS ORDERED: HYDROmorphone HCL 2MG/ML 1ML VIAL As Ordered ONE (17:34)
[2023-12-06] MEDS: ceFAZolin 2 GM/D5W 50 ML IV BAG As Ordered ONE (17:36)
[2023-12-06] MEDS ORDERED: ESMOLOL INJ 100MG/10ML VIAL As Ordered ONE (17:57)
[2023-12-06] MEDS ORDERED: ONDANSETRON 4MG 2ML VIAL IV PRN (19:35)
[2023-12-06] MEDS: fentaNYL 100 MCG/2 ML INJECTION IV PRN (19:41)
[2023-12-06] MEDS: HYDROMORPHONE HCL 0.5 MG/ 0.5 ML SYRINGE IV PRN (19:57)
[2023-12-06] MEDS: oxyCODONE 5MG TAB PO PRN (19:58)
[2023-12-06 20:55] VITALS: BP 114/73; TEMP 98.1; O2SAT 97
[2023-12-06] MEDS: FLUTICASONE PROP 0.05% NASAL SPRAY 16 GM (FLONASE) NARES SCH (21:00)
[2023-12-06] MEDS: MAGNESIUM OXIDE 400MG TAB (MAG-OX) PO SCH (21:28)
[2023-12-06] MEDS: CYCLOBENZAPRINE 5MG TABLET PO SCH (21:28)
[2023-12-06] MEDS: CALCIUM/VITAMIN D 500 MG TAB PO SCH (21:29)
[2023-12-06] MEDS: ROSUVASTATIN 10 MG TAB (CRESTOR) PO SCH (21:31)
[2023-12-06 21:56] VITALS: BP 113/68; TEMP 97.6; O2SAT 95
[2023-12-06 22:56] VITALS: BP 113/66; TEMP 97; O2SAT 97
[2023-12-06 23:57] VITALS: BP 118/68; TEMP 97; O2SAT 97
[2023-12-07] VITALS (10 sets, daily range): BP systolic 112–121; BP diastolic 57–69; TEMP 97.1–97.8; O2SAT 92–99
[2023-12-07] MEDS: ceFAZolin SOD 2 GM in IV 1 EA IV SCH (05:05)
[2023-12-07] MEDS: GABAPENTIN 100 MG CAP PO SCH (06:00)
[2023-12-07] MEDS: CYCLOBENZAPRINE 10MG TABLET PO SCH (06:00)
[2023-12-07 07:18] LABS: HEMATOCRIT 30.1 % (36.0-47.0); HEMOGLOBIN 9.4 g/dl (12.0-15.5); MEAN CORPUSCULAR HEMOGLOBIN 31.9 pg (27.0-33.0); MEAN CORPUSCULAR HGB CONC 31.2 g/dl (32.0-36.5); PLATELET COUNT, AUTOMATED 440 10^3/uL (150-450); RED BLOOD COUNT 2.95 10^6/uL (4.00-5.40); WHITE BLOOD COUNT 10.4 10^3/uL (4.0-10.0)
[2023-12-07 07:45] LABS: BLOOD UREA NITROGEN 13 MG/DL (9-23); CALCIUM LEVEL 8.1 MG/DL (8.3-10.6); CARBON DIOXIDE LEVEL 31 MMOL/L (20-31); CHLORIDE LEVEL 98 MMOL/L (98-107); CREATININE FOR GFR 0.63 MG/DL (0.55-1.30); GLOMERULAR FILTRATION RATE > 60.0 (>39); GLUCOSE, FASTING 132 MG/DL (74-106); SODIUM LEVEL 134 MMOL/L (136-145)
[2023-12-07] MEDS: FERROUS GLUCONATE 324 MG TAB PO SCH (08:13)
[2023-12-07] MEDS: MIRALAX *UNIT DOSE* 17GM PACKET PO SCH (08:16)
[2023-12-07] MEDS: LIDOCAINE 5% (LIDODERM) PATCH TD SCH (09:27)
[2023-12-07] MEDS: KETOROLAC 30 MG/ML 1ML VIAL IV SCH (09:27)
[2023-12-07] MEDS: MORPHINE 4 MG/ML 1ML VIAL IV PRN (12:35)
[2023-12-07] MEDS: ACETAMINOPHEN 500 MG TAB PO SCH (12:35)
[2023-12-07] MEDS: FUROSEMIDE 20 MG TAB PO SCH (13:16)
[2023-12-07] MEDS: SERTRALINE 100 MG TAB PO SCH (13:16)
[2023-12-07] MEDS: ENOXAPARIN 40MG/0.4ML SYRINGE (J1650 PER 10MG) SC SCH (18:05)
[2023-12-08 04:00] VITALS: BP 99/51; TEMP 97.3; O2SAT 95
[2023-12-08 07:19] LABS: HEMATOCRIT 28.3 % (36.0-47.0); HEMOGLOBIN 9.6 g/dl (12.0-15.5); MEAN CORPUSCULAR HEMOGLOBIN 34.9 pg (27.0-33.0); MEAN CORPUSCULAR HGB CONC 33.9 g/dl (32.0-36.5); MEAN CORPUSCULAR VOLUME 102.9 fl (80.0-96.0); PLATELET COUNT, AUTOMATED 388 10^3/uL (150-450); RED BLOOD COUNT 2.75 10^6/uL (4.00-5.40); WHITE BLOOD COUNT 9.1 10^3/uL (4.0-10.0)
[2023-12-08 07:44] LABS: BLOOD UREA NITROGEN 20 MG/DL (9-23); CALCIUM LEVEL 7.9 MG/DL (8.3-10.6); CARBON DIOXIDE LEVEL 31 MMOL/L (20-31); CHLORIDE LEVEL 98 MMOL/L (98-107); CREATININE FOR GFR 0.76 MG/DL (0.55-1.30); GLOMERULAR FILTRATION RATE > 60.0 (>39); GLUCOSE, FASTING 152 MG/DL (74-106); POTASSIUM SERUM 3.7 MMOL/L (3.5-5.1); SODIUM LEVEL 135 MMOL/L (136-145)
[2023-12-08] MEDS: MORPHINE 2 MG/ML 1ML VIAL IV PRN (10:18)
[2023-12-08 12:07] VITALS: BP 100/65; TEMP 97.2; O2SAT 99
[2023-12-08 21:24] VITALS: BP 105/68; TEMP 97.7; O2SAT 97
[2023-12-08] MEDS: FAMOTIDINE 20 MG TAB PO PRN (21:33)
[2023-12-09 04:00] VITALS: BP 95/65; TEMP 97.5; O2SAT 98
[2023-12-09 08:07] LABS: BASO % 0.6 % (0.0-1.0); EOS # 0.1 10^3/uL (0.0-0.5); EOS % 1.2 % (0.0-3.0); HEMATOCRIT 26.4 % (36.0-47.0); HEMOGLOBIN 8.1 g/dl (12.0-15.5); LYMPH % 15.3 % (24.0-44.0); MEAN CORPUSCULAR HEMOGLOBIN 31.4 pg (27.0-33.0); MEAN CORPUSCULAR HGB CONC 30.7 g/dl (32.0-36.5); MEAN CORPUSCULAR VOLUME 102.3 fl (80.0-96.0); MONO % 15.9 % (2.0-8.0); NEUTROPHILS # 4.2 10^3/uL (1.5-8.5); NEUTROPHILS % 65.5 % (36.0-66.0); PLATELET COUNT, AUTOMATED 378 10^3/uL (150-450); RED BLOOD COUNT 2.58 10^6/uL (4.00-5.40); WHITE BLOOD COUNT 6.5 10^3/uL (4.0-10.0)
[2023-12-09 08:20] LABS: ALBUMIN 2.2 G/DL (3.2-5.2); ALKALINE PHOSPHATASE 195 U/L (46-116); ALT/SGPT < 9 U/L (7.0-40); AST/SGOT 18 U/L (<34); BILIRUBIN,TOTAL 0.3 MG/DL (0.3-1.2); BLOOD UREA NITROGEN 17 MG/DL (9-23); CALCIUM LEVEL 7.6 MG/DL (8.3-10.6); CARBON DIOXIDE LEVEL 32 MMOL/L (20-31); CHLORIDE LEVEL 99 MMOL/L (98-107); CREATININE FOR GFR 0.63 MG/DL (0.55-1.30); GLOMERULAR FILTRATION RATE > 60.0 (>39); GLUCOSE, FASTING 170 MG/DL (74-106); POTASSIUM SERUM 3.5 MMOL/L (3.5-5.1); SODIUM LEVEL 136 MMOL/L (136-145); TOTAL PROTEIN 5.4 G/DL (5.7-8.2)
[2023-12-09 08:25] LABS: ERYTHROCYTE SEDIMENTATION RATE 44 mm/hr (0-30)
[2023-12-09 08:27] LABS: PROCALCITONIN 0.15 ng/ml
[2023-12-09 12:00] VITALS: BP 101/50; TEMP 96.8; O2SAT 97
[2023-12-09] MEDS: cefTRIAXone SOD 2 GM in D5W MINI-BAG PLUS 50 ML IV SCH (12:45)
[2023-12-09] MEDS: GABAPENTIN 100 MG CAP PO SCH (13:22)
[2023-12-09 20:00] VITALS: BP 114/89; TEMP 97; O2SAT 96
[2023-12-10 04:59] VITALS: BP 111/87; TEMP 97.5
[2023-12-10 07:23] LABS: HEMATOCRIT 25.8 % (36.0-47.0); HEMOGLOBIN 7.9 g/dl (12.0-15.5); MEAN CORPUSCULAR HEMOGLOBIN 31.9 pg (27.0-33.0); MEAN CORPUSCULAR HGB CONC 30.6 g/dl (32.0-36.5); PLATELET COUNT, AUTOMATED 351 10^3/uL (150-450); RED BLOOD COUNT 2.48 10^6/uL (4.00-5.40); WHITE BLOOD COUNT 6.8 10^3/uL (4.0-10.0)
[2023-12-10 07:42] LABS: BLOOD UREA NITROGEN 14 MG/DL (9-23); CALCIUM LEVEL 7.7 MG/DL (8.3-10.6); CARBON DIOXIDE LEVEL 30 MMOL/L (20-31); CHLORIDE LEVEL 102 MMOL/L (98-107); CREATININE FOR GFR 0.65 MG/DL (0.55-1.30); GLOMERULAR FILTRATION RATE > 60.0 (>39); GLUCOSE, FASTING 146 MG/DL (74-106); POTASSIUM SERUM 4.1 MMOL/L (3.5-5.1); SODIUM LEVEL 135 MMOL/L (136-145)
[2023-12-10] MEDS: KETOROLAC 30 MG/ML 1ML VIAL IV PRN (09:10)
[2023-12-10 12:00] VITALS: BP 106/52; TEMP 97.2; O2SAT 97
[2023-12-10 20:00] VITALS: BP_SYST 117; BP_SYST 120; BP_DIAS 49; BP_DIAS 54; TEMP 97.2; TEMP 98.1; O2SAT 97
[2023-12-11 04:21] VITALS: BP 122/52; TEMP 97.7; O2SAT 97
[2023-12-11 06:04] VITALS: O2SAT 98
[2023-12-11 07:51] LABS: HEMOGLOBIN 7.6 g/dl (12.0-15.5); MEAN CORPUSCULAR HEMOGLOBIN 31.7 pg (27.0-33.0); MEAN CORPUSCULAR HGB CONC 30.4 g/dl (32.0-36.5); MEAN CORPUSCULAR VOLUME 104.2 fl (80.0-96.0); PLATELET COUNT, AUTOMATED 343 10^3/uL (150-450); WHITE BLOOD COUNT 6.2 10^3/uL (4.0-10.0)
[2023-12-11 08:21] LABS: BLOOD UREA NITROGEN 12 MG/DL (9-23); CARBON DIOXIDE LEVEL 32 MMOL/L (20-31); CHLORIDE LEVEL 100 MMOL/L (98-107); CREATININE FOR GFR 0.63 MG/DL (0.55-1.30); GLOMERULAR FILTRATION RATE > 60.0 (>39); GLUCOSE, FASTING 130 MG/DL (74-106); POTASSIUM SERUM 4.6 MMOL/L (3.5-5.1); SODIUM LEVEL 135 MMOL/L (136-145)
[2023-12-11 08:47] VITALS: BP 118/58
[2023-12-11] MEDS: CEFEPIME HCL 2 GM in D5W MINI-BAG PLUS 50 ML IV SCH (10:21)
[2023-12-11] MEDS ORDERED: CEFE2INJ5 IJ (13:31)
== END 2023-12-11 13:45 | disposition short-term general hospital (02) | DRG 481 ==
LOC: M MS5PR 16:55
PROVIDERS: ADMIT Internal Medicine; ATTEND Internal Medicine
PROC: 0QPC04Z Removal of Internal Fixation Device from Left Lower Femur, Open Approach (ICD-10-PCS; 2023-12-06)
PROC: 0QS Lower Bones, Reposition (ICD-10-PCS; principal; 2023-12-06 16:00)
DX: T84.093A Other mechanical complication of internal left knee prosthesis, initial encounter (principal); I48.21 Permanent atrial fibrillation; K50.90 Crohn's disease, unspecified, without complications; M97.12XD Periprosthetic fracture around internal prosthetic left knee joint, subsequent encounter; J45.909 Unspecified asthma, uncomplicated; K21.9 Gastro-esophageal reflux disease without esophagitis; R32 Unspecified urinary incontinence; E11.9 Type 2 diabetes mellitus without complications; F39 Unspecified mood [affective] disorder; I10 Essential (primary) hypertension; M51.36 Other intervertebral disc degeneration, lumbar region; M35.3 Polymyalgia rheumatica; D50.9 Iron deficiency anemia, unspecified; T84.621A Infection and inflammatory reaction due to internal fixation device of left femur, initial encounter; E03.9 Hypothyroidism, unspecified; M85.80 Other specified disorders of bone density and structure, unspecified site; K76.0 Fatty (change of) liver, not elsewhere classified; Z90.79 Acquired absence of other genital organ(s); Z90.49 Acquired absence of other specified parts of digestive tract; Z98.49 Cataract extraction status, unspecified eye; Z96.653 Presence of artificial knee joint, bilateral; Z98.84 Bariatric surgery status; Z79.82 Long term (current) use of aspirin; Z79.84 Long term (current) use of oral hypoglycemic drugs; Z79.52 Long term (current) use of systemic steroids; Z79.899 Other long term (current) drug therapy; Z88.5 Allergy status to narcotic agent; Z88.8 Allergy status to other drugs, medicaments and biological substances; E78.5 Hyperlipidemia, unspecified

== ENCOUNTER → 2024-07-09 | Outpatient (REF) ==
[~2024-07-09] MED LIST changes: +CEFE2INJ5 IJ; +CYCL5TAB4 PO; +DICY1CAP8 PO; +FAMO40TA3 PO
[2024-07-09 09:39] LABS: HEMATOCRIT 30.1 % (36.0-47.0); HEMOGLOBIN 9.1 g/dl (12.0-15.5); MEAN CORPUSCULAR HEMOGLOBIN 30.3 pg (27.0-33.0); MEAN CORPUSCULAR HGB CONC 30.2 g/dl (32.0-36.5); MEAN CORPUSCULAR VOLUME 100.3 fl (80.0-96.0); PLATELET COUNT, AUTOMATED 425 10^3/uL (150-450); WHITE BLOOD COUNT 6.3 10^3/uL (4.0-10.0)
[2024-07-09 10:05] LABS: BLOOD UREA NITROGEN 16 MG/DL (9-23); CALCIUM LEVEL 8.7 MG/DL (8.3-10.6); CARBON DIOXIDE LEVEL 29 MMOL/L (20-31); CHLORIDE LEVEL 101 MMOL/L (98-107); CREATININE FOR GFR 0.81 MG/DL (0.55-1.30); GLOMERULAR FILTRATION RATE > 60.0 (>39); GLUCOSE, FASTING 86 MG/DL (74-106); MAGNESIUM LEVEL 1.9 MG/DL (1.8-2.4); POTASSIUM SERUM 4.7 MMOL/L (3.5-5.1); SODIUM LEVEL 139 MMOL/L (136-145)
[2024-07-09 10:06] LABS: TOTAL 25(OH) VITAMIN D 42.1 NG/ML (20.0-100.0)
[2024-07-09 10:07] LABS: VITAMIN B12 LEVEL 290 PG/ML (211-911)
[2024-07-09 11:03] LABS: HEMOGLOBIN A1c 4.2 % (4.0-6.0)
== END ==
PROVIDERS: ATTEND Physician Assistant
DX: E11.9 Type 2 diabetes mellitus without complications (principal)

== ENCOUNTER → 2024-07-16 | Outpatient (REF) ==
[2024-07-16 08:50] LABS: HEMATOCRIT 31.1 % (36.0-47.0); HEMOGLOBIN 9.3 g/dl (12.0-15.5); MEAN CORPUSCULAR HEMOGLOBIN 29.3 pg (27.0-33.0); MEAN CORPUSCULAR HGB CONC 29.9 g/dl (32.0-36.5); MEAN CORPUSCULAR VOLUME 98.1 fl (80.0-96.0); PLATELET COUNT, AUTOMATED 421 10^3/uL (150-450); RED BLOOD COUNT 3.17 10^6/uL (4.00-5.40); WHITE BLOOD COUNT 8.2 10^3/uL (4.0-10.0)
[2024-07-16 09:18] LABS: BLOOD UREA NITROGEN 15 MG/DL (9-23); CALCIUM LEVEL 8.7 MG/DL (8.3-10.6); CARBON DIOXIDE LEVEL 26 MMOL/L (20-31); CHLORIDE LEVEL 100 MMOL/L (98-107); CREATININE FOR GFR 0.69 MG/DL (0.55-1.30); GLOMERULAR FILTRATION RATE > 60.0 (>39); GLUCOSE, FASTING 140 MG/DL (74-106); MAGNESIUM LEVEL 1.8 MG/DL (1.8-2.4); POTASSIUM SERUM 4.6 MMOL/L (3.5-5.1); SODIUM LEVEL 137 MMOL/L (136-145)
== END ==
PROVIDERS: ATTEND Physician Assistant
DX: E11.9 Type 2 diabetes mellitus without complications (principal)

== ENCOUNTER → 2024-07-25 | Outpatient (CLI) | payer MEDICARE ==
[~2024-07-25] MED LIST changes: +BARIUM SULFATE 700 MG TABLET (E-Z-DISK) As Ordered ONE; +E-Z-PAQUE 96% w/w SUSP 176GM BTL As Ordered ONE; +VARIBAR NECTAR 40% w/v 240ML SUSP BTL As Ordered ONE; +VARIBAR PUDDING 40% w/v 230ML TUBE As Ordered ONE
== END ==
LOC: M RAD 11:33
PROVIDERS: ATTEND Internal Medicine
DX: Z86.73 Personal history of transient ischemic attack (TIA), and cerebral infarction without residual deficits (principal); R93.3 Abnormal findings on diagnostic imaging of other parts of digestive tract

== ENCOUNTER → 2024-08-13 | Outpatient (REF) | payer MEDICARE, MEDICAID ==
[~2024-08-13] MED LIST changes: -BARIUM SULFATE 700 MG TABLET (E-Z-DISK) As Ordered ONE; -E-Z-PAQUE 96% w/w SUSP 176GM BTL As Ordered ONE; -VARIBAR NECTAR 40% w/v 240ML SUSP BTL As Ordered ONE; -VARIBAR PUDDING 40% w/v 230ML TUBE As Ordered ONE
[2024-08-13 08:56] LABS: HEMATOCRIT 28.5 % (36.0-47.0); HEMOGLOBIN 8.4 g/dl (12.0-15.5); MEAN CORPUSCULAR HEMOGLOBIN 29.1 pg (27.0-33.0); MEAN CORPUSCULAR HGB CONC 29.5 g/dl (32.0-36.5); MEAN CORPUSCULAR VOLUME 98.6 fl (80.0-96.0); PLATELET COUNT, AUTOMATED 359 10^3/uL (150-450); RED BLOOD COUNT 2.89 10^6/uL (4.00-5.40); WHITE BLOOD COUNT 6.2 10^3/uL (4.0-10.0)
[2024-08-13 09:23] LABS: ERYTHROCYTE SEDIMENTATION RATE 35 mm/hr (0-30)
[2024-08-13 09:24] LABS: C REACTIVE PROTEIN QUANTITATIV 1.86 MG/DL (<1.0)
[2024-08-13 09:25] LABS: CALCIUM LEVEL 8.6 MG/DL (8.3-10.6); CREATININE FOR GFR 0.73 MG/DL (0.55-1.30); GLOMERULAR FILTRATION RATE 84.1 (>39); POTASSIUM SERUM 4.4 MMOL/L (3.5-5.1)
[2024-08-13 11:21] LABS: PERCENT SATURATION 13.8 % (13.2-45.0)
[2024-08-13 11:24] LABS: TOTAL 25(OH) VITAMIN D 39.8 NG/ML (20.0-100.0)
[2024-08-13 11:25] LABS: FERRITIN 113.6 NG/ML (7.3-270.7); FOLATE 4.8 NG/ML (>5.4)
== END ==
PROVIDERS: ATTEND Physician Assistant
DX: E55.9 Vitamin D deficiency, unspecified (principal); D64.9 Anemia, unspecified; T84.621D Infection and inflammatory reaction due to internal fixation device of left femur, subsequent encounter

== ENCOUNTER → 2024-08-18 | Outpatient (REF) | PROVIDERS: ATTEND Physician Assistant | DX: K50.90 Crohn's disease, unspecified, without complications (principal) ==

== ENCOUNTER → 2024-08-20 | Outpatient (REF) | payer MEDICARE, MEDICAID ==
[2024-08-20 08:33] LABS: HEMATOCRIT 29.2 % (36.0-47.0); HEMOGLOBIN 8.8 g/dl (12.0-15.5); MEAN CORPUSCULAR HEMOGLOBIN 29.6 pg (27.0-33.0); MEAN CORPUSCULAR HGB CONC 30.1 g/dl (32.0-36.5); MEAN CORPUSCULAR VOLUME 98.3 fl (80.0-96.0); PLATELET COUNT, AUTOMATED 329 10^3/uL (150-450); RED BLOOD COUNT 2.97 10^6/uL (4.00-5.40); WHITE BLOOD COUNT 7.4 10^3/uL (4.0-10.0)
[2024-08-20 09:03] LABS: CALCIUM LEVEL 8.7 MG/DL (8.3-10.6); CREATININE FOR GFR 0.79 MG/DL (0.55-1.30); GLOMERULAR FILTRATION RATE 76.5 (>39); POTASSIUM SERUM 4.2 MMOL/L (3.5-5.1)
[2024-08-20 09:07] LABS: THYROID STIMULATING HORMONE 10.435 uIU/ML (0.55-4.78)
== END ==
PROVIDERS: ATTEND Physician Assistant
DX: K50.90 Crohn's disease, unspecified, without complications (principal); Z79.899 Other long term (current) drug therapy

== ENCOUNTER → 2024-08-22 | Outpatient (REF) | payer MEDICARE, MEDICAID | PROVIDERS: ATTEND Physician Assistant | DX: D64.9 Anemia, unspecified (principal) ==

== ENCOUNTER → 2024-08-25 | Outpatient (REF) | payer MEDICARE, MEDICAID ==
[2024-08-25 08:12] LABS: HEMATOCRIT 27.7 % (36.0-47.0); HEMOGLOBIN 8.3 g/dl (12.0-15.5); MEAN CORPUSCULAR HEMOGLOBIN 29.4 pg (27.0-33.0); MEAN CORPUSCULAR VOLUME 98.2 fl (80.0-96.0); PLATELET COUNT, AUTOMATED 348 10^3/uL (150-450); RED BLOOD COUNT 2.82 10^6/uL (4.00-5.40); WHITE BLOOD COUNT 7.5 10^3/uL (4.0-10.0)
[2024-08-25 08:32] LABS: CALCIUM LEVEL 8.9 MG/DL (8.3-10.6); CREATININE FOR GFR 0.74 MG/DL (0.55-1.30); GLOMERULAR FILTRATION RATE 82.8 (>39); POTASSIUM SERUM 4.5 MMOL/L (3.5-5.1)
== END ==
PROVIDERS: ATTEND Physician Assistant
DX: D64.9 Anemia, unspecified (principal)

== ENCOUNTER → 2024-09-15 | Outpatient (REF) | payer MEDICARE, MEDICAID | PROVIDERS: ATTEND Physician Assistant | DX: R05.9 Cough, unspecified (principal) ==

== ENCOUNTER → 2024-09-16 | Outpatient (REF) | payer MEDICARE, MEDICAID ==
[2024-09-16 13:47] LABS: HEMATOCRIT 29.1 % (36.0-47.0); HEMOGLOBIN 8.7 g/dl (12.0-15.5); MEAN CORPUSCULAR HEMOGLOBIN 28.8 pg (27.0-33.0); MEAN CORPUSCULAR HGB CONC 29.9 g/dl (32.0-36.5); MEAN CORPUSCULAR VOLUME 96.4 fl (80.0-96.0); PLATELET COUNT, AUTOMATED 328 10^3/uL (150-450); RED BLOOD COUNT 3.02 10^6/uL (4.00-5.40); WHITE BLOOD COUNT 5.9 10^3/uL (4.0-10.0)
[2024-09-16 14:12] LABS: CALCIUM LEVEL 8.4 MG/DL (8.3-10.6); CREATININE FOR GFR 0.77 MG/DL (0.55-1.30); GLOMERULAR FILTRATION RATE 78.9 (>39); POTASSIUM SERUM 4.9 MMOL/L (3.5-5.1)
== END ==
PROVIDERS: ATTEND Internal Medicine
DX: U07.1 COVID-19 (principal); Z79.899 Other long term (current) drug therapy

== ENCOUNTER → 2024-11-04 | Outpatient (REF) | payer MEDICARE, MEDICAID | PROVIDERS: ATTEND Physician Assistant | DX: I27.20 Pulmonary hypertension, unspecified (principal); R05.9 Cough, unspecified ==

== ENCOUNTER → 2024-11-07 | Outpatient (REF) | payer MEDICARE, MEDICAID ==
[2024-11-07 08:52] LABS: CALCIUM LEVEL 8.7 MG/DL (8.3-10.6); CARBON DIOXIDE LEVEL 28.0 MMOL/L (20-31); CHLORIDE LEVEL 95.0 MMOL/L (98-107); CHOLESTEROL LEVEL 89.0 MG/DL (<200); CHOLESTEROL RISK RATIO 1.96 (<5); CREATININE FOR GFR 0.79 MG/DL (0.55-1.30); GLOMERULAR FILTRATION RATE 76.5 (>39); LDL CHOLESTEROL 28.4 MG/DL (<100); NON-HDL-C 43.6 MG/DL; POTASSIUM SERUM 4.6 MMOL/L (3.5-5.1); SODIUM LEVEL 134.0 MMOL/L (136-145); TRIGLYCERIDES LEVEL 76.0 MG/DL (<150)
[2024-11-09 03:09] LABS: Estimated Ave Glu(eAG) 4.4 mmol/L
== END ==
PROVIDERS: ATTEND Internal Medicine
DX: R05.9 Cough, unspecified (principal); Z79.899 Other long term (current) drug therapy

== ENCOUNTER → 2024-11-10 | Outpatient (REF) | payer MEDICARE, MEDICAID ==
[2024-11-10 08:56] LABS: PLATELET COUNT, AUTOMATED 309 10^3/uL (150-450)
[2024-11-10 09:01] LABS: ERYTHROCYTE SEDIMENTATION RATE 72 mm/hr (0-30)
[2024-11-10 09:21] LABS: C REACTIVE PROTEIN QUANTITATIV 1.62 MG/DL (<1.0); CALCIUM LEVEL 8.4 MG/DL (8.3-10.6); CARBON DIOXIDE LEVEL 31.0 MMOL/L (20-31); CHLORIDE LEVEL 91.0 MMOL/L (98-107); CREATININE FOR GFR 0.84 MG/DL (0.55-1.30); GLOMERULAR FILTRATION RATE 71.1 (>39); POTASSIUM SERUM 4.1 MMOL/L (3.5-5.1); SODIUM LEVEL 132.0 MMOL/L (136-145)
== END ==
PROVIDERS: ATTEND Physician Assistant
DX: E78.5 Hyperlipidemia, unspecified (principal)

== ENCOUNTER → 2024-11-14 | Outpatient (REF) | payer MEDICARE, MEDICAID ==
[2024-11-14 08:26] LABS: CALCIUM LEVEL 8.6 MG/DL (8.3-10.6); CARBON DIOXIDE LEVEL 29.0 MMOL/L (20-31); CHLORIDE LEVEL 92.0 MMOL/L (98-107); CREATININE FOR GFR 0.76 MG/DL (0.55-1.30); GLOMERULAR FILTRATION RATE 80.2 (>39); POTASSIUM SERUM 4.5 MMOL/L (3.5-5.1); SODIUM LEVEL 132.0 MMOL/L (136-145)
== END ==
PROVIDERS: ATTEND Internal Medicine
DX: R60.0 Localized edema (principal)

== ENCOUNTER → 2024-12-08 | Outpatient (REF) | payer MEDICARE, MEDICAID ==
[2024-12-08 11:08] LABS: PLATELET COUNT, AUTOMATED 420 10^3/uL (150-450)
[2024-12-08 11:16] LABS: ERYTHROCYTE SEDIMENTATION RATE 87 mm/hr (0-30)
[2024-12-08 11:45] LABS: CALCIUM LEVEL 9.0 MG/DL (8.3-10.6); CARBON DIOXIDE LEVEL 29.0 MMOL/L (20-31); CHLORIDE LEVEL 97.0 MMOL/L (98-107); CREATININE FOR GFR 0.71 MG/DL (0.55-1.30); GLOMERULAR FILTRATION RATE 87.0 (>39); POTASSIUM SERUM 4.4 MMOL/L (3.5-5.1); SODIUM LEVEL 137.0 MMOL/L (136-145)
[2024-12-08 11:47] LABS: C REACTIVE PROTEIN QUANTITATIV 17.07 MG/DL (<1.0)
== END ==
PROVIDERS: ATTEND Nurse Practitioner Family
DX: E78.5 Hyperlipidemia, unspecified (principal); T84.54XS Infection and inflammatory reaction due to internal left knee prosthesis, sequela

== ENCOUNTER → 2024-12-22 | Outpatient (REF) | payer MEDICARE, MEDICAID ==
[2024-12-22 12:20] LABS: TOTAL 25(OH) VITAMIN D 36.0 NG/ML (20.0-100.0)
[2024-12-22 12:22] LABS: C REACTIVE PROTEIN QUANTITATIV 10.98 MG/DL (<1.0)
== END ==
PROVIDERS: ATTEND Nurse Practitioner Family
DX: Z01.89 Encounter for other specified special examinations (principal); Z79.899 Other long term (current) drug therapy

== ENCOUNTER → 2025-01-05 | Outpatient (REF) | payer MEDICARE, MEDICAID ==
[2025-01-05 11:44] LABS: PLATELET COUNT, AUTOMATED 479 10^3/uL (150-450)
[2025-01-05 11:53] LABS: ERYTHROCYTE SEDIMENTATION RATE 85 mm/hr (0-30)
[2025-01-05 12:11] LABS: C REACTIVE PROTEIN QUANTITATIV 8.19 MG/DL (<1.0)
[2025-01-05 12:12] LABS: ALT/SGPT 21.0 U/L (7.0-40); AST/SGOT 39.0 U/L (<34); CALCIUM LEVEL 8.8 MG/DL (8.3-10.6); CARBON DIOXIDE LEVEL 28.0 MMOL/L (20-31); CHLORIDE LEVEL 94.0 MMOL/L (98-107); CREATININE FOR GFR 0.68 MG/DL (0.55-1.30); GLOMERULAR FILTRATION RATE 89.1 (>39); MAGNESIUM LEVEL 1.9 MG/DL (1.8-2.4); POTASSIUM SERUM 4.6 MMOL/L (3.5-5.1); SODIUM LEVEL 133.0 MMOL/L (136-145)
[2025-01-05 12:14] LABS: TOTAL 25(OH) VITAMIN D 42.4 NG/ML (20.0-100.0); VITAMIN B12 LEVEL 337.0 PG/ML (211-911)
[2025-01-06 06:04] LABS: Estimated Ave Glu(eAG) 4.6 mmol/L
== END ==
PROVIDERS: ATTEND Nurse Practitioner Family
DX: E78.5 Hyperlipidemia, unspecified (principal); Z79.899 Other long term (current) drug therapy

== ENCOUNTER → 2025-01-15 | Outpatient (REF) | payer MEDICARE, MEDICAID ==
[2025-01-15 19:38] LABS: APPEARANCE, URINE HAZY (CLEAR); BACTERIA, URINE AUTO 3+ (NEGATIVE); BILIRUBIN, URINE AUTO NEGATIVE (NEGATIVE); BLOOD, URINE BLOOD NEGATIVE (NEGATIVE); CALCIUM OXALATE CRYSTALS LARGE; GLUCOSE, URINE (UA) AUTO NEGATIVE (NEGATIVE); KETONE, URINE AUTO NEGATIVE (NEGATIVE); LEUKOCYTE ESTERASE, URINE AUTO 1+ (NEGATIVE); NITRITE, URINE AUTO NEGATIVE (NEGATIVE); PROTEIN, URINE AUTO NEGATIVE (NEGATIVE); RBC, URINE AUTO 2 /HPF (0-3); SPECIFIC GRAVITY URINE AUTO 1.015 (1.002-1.035); SQUAMOUS EPITHELIAL CELL UR AU 2 /HPF (0-6); UROBILINOGEN, URINE AUTO 0.2 mg/dL (0.0-2.0); WBC, URINE AUTO 21 /HPF (0-3)
== END ==
PROVIDERS: ATTEND Nurse Practitioner Family
DX: N39.0 Urinary tract infection, site not specified (principal)

== ENCOUNTER → 2025-01-16 | Outpatient (REF) | payer MEDICARE, MEDICAID ==
[2025-01-16 11:23] LABS: BASO # 0.1 10^3/uL (0.0-0.2); BASO % 0.7 % (0.0-1.0); EOS # 0.1 10^3/uL (0.0-0.5); EOS % 1.4 % (0.0-3.0); LYMPH # 1.1 10^3/uL (1.5-5.0); LYMPH % 13.5 % (24.0-44.0); MONO # 1.2 10^3/uL (0.0-0.8); MONO % 14.4 % (2.0-8.0); NEUTROPHILS # 5.7 10^3/uL (1.5-8.5); NEUTROPHILS % 68.7 % (36.0-66.0); PLATELET COUNT, AUTOMATED 495 10^3/uL (150-450)
[2025-01-16 11:32] LABS: ERYTHROCYTE SEDIMENTATION RATE 86 mm/hr (0-30)
[2025-01-16 11:44] LABS: ALT/SGPT 23 U/L (7.0-40); AST/SGOT 47 U/L (<34); C REACTIVE PROTEIN QUANTITATIV 9.31 MG/DL (<1.0); CALCIUM LEVEL 8.2 MG/DL (8.3-10.6); CARBON DIOXIDE LEVEL 27 MMOL/L (20-31); CHLORIDE LEVEL 96 MMOL/L (98-107); CREATININE FOR GFR 0.62 MG/DL (0.55-1.30); GLOMERULAR FILTRATION RATE > 90.0 (>39); POTASSIUM SERUM 4.7 MMOL/L (3.5-5.1); SODIUM LEVEL 130 MMOL/L (136-145)
== END ==
PROVIDERS: ATTEND Nurse Practitioner Family
DX: I48.91 Unspecified atrial fibrillation (principal)

== ENCOUNTER → 2025-01-19 | Outpatient (REF) | payer MEDICARE, MEDICAID | PROVIDERS: ATTEND Nurse Practitioner Family | DX: E87.1 Hypo-osmolality and hyponatremia (principal) ==

== ENCOUNTER → 2025-01-21 | Outpatient (REF) | payer MEDICARE, MEDICAID ==
[2025-01-21 13:56] LABS: CALCIUM LEVEL 8.1 MG/DL (8.3-10.6); CARBON DIOXIDE LEVEL 28 MMOL/L (20-31); CHLORIDE LEVEL 95 MMOL/L (98-107); CREATININE FOR GFR 0.63 MG/DL (0.55-1.30); DIGOXIN LEVEL 0.8 NG/ML (0.8-2.0); GLOMERULAR FILTRATION RATE > 90.0 (>39); POTASSIUM SERUM 4.5 MMOL/L (3.5-5.1); SODIUM LEVEL 131 MMOL/L (136-145)
== END ==
PROVIDERS: ATTEND Nurse Practitioner Family
DX: E87.1 Hypo-osmolality and hyponatremia (principal)

== ENCOUNTER → 2025-01-27 | Outpatient (REF) | payer MEDICARE, MEDICAID ==
[2025-01-27 14:01] LABS: PLATELET COUNT, AUTOMATED 448 10^3/uL (150-450)
[2025-01-27 14:29] LABS: ALT/SGPT 16 U/L (7.0-40); AST/SGOT 43 U/L (<34); CALCIUM LEVEL 7.6 MG/DL (8.3-10.6); CARBON DIOXIDE LEVEL 26 MMOL/L (20-31); CHLORIDE LEVEL 96 MMOL/L (98-107); CREATININE FOR GFR 0.55 MG/DL (0.55-1.30); GLOMERULAR FILTRATION RATE > 90.0 (>39); POTASSIUM SERUM 4.6 MMOL/L (3.5-5.1); SODIUM LEVEL 132 MMOL/L (136-145)
== END ==
PROVIDERS: ATTEND Nurse Practitioner Family
DX: R41.0 Disorientation, unspecified (principal)

== ENCOUNTER → 2025-01-30 | Outpatient (REF) | payer MEDICARE, MEDICAID ==
[2025-01-30 10:42] LABS: CALCIUM LEVEL 7.9 MG/DL (8.3-10.6); CARBON DIOXIDE LEVEL 27.0 MMOL/L (20-31); CHLORIDE LEVEL 96.0 MMOL/L (98-107); CREATININE FOR GFR 0.66 MG/DL (0.55-1.30); GLOMERULAR FILTRATION RATE 89.7 (>39); POTASSIUM SERUM 4.5 MMOL/L (3.5-5.1); SODIUM LEVEL 130.0 MMOL/L (136-145)
== END ==
PROVIDERS: ATTEND Nurse Practitioner Family
DX: E87.1 Hypo-osmolality and hyponatremia (principal)

== ENCOUNTER → 2025-01-30 | Outpatient (CLI) | payer MEDICARE, MEDICAID | LOC: M RAD 11:03 | PROVIDERS: ATTEND Orthopaedic Surgery | DX: Z96.652 Presence of left artificial knee joint (principal); E87.1 Hypo-osmolality and hyponatremia ==

== ENCOUNTER → 2025-02-06 | Outpatient (REF) | payer MEDICARE, MEDICAID ==
[2025-02-06 11:49] LABS: CALCIUM LEVEL 7.7 MG/DL (8.3-10.6); CARBON DIOXIDE LEVEL 23 MMOL/L (20-31); CHLORIDE LEVEL 97 MMOL/L (98-107); CREATININE FOR GFR 0.61 MG/DL (0.55-1.30); GLOMERULAR FILTRATION RATE > 90.0 (>39); POTASSIUM SERUM 4.9 MMOL/L (3.5-5.1); SODIUM LEVEL 133 MMOL/L (136-145)
== END ==
PROVIDERS: ATTEND Nurse Practitioner Family
DX: I50.9 Heart failure, unspecified (principal)

== ENCOUNTER → 2025-02-09 | Outpatient (REF) | payer MEDICARE, MEDICAID | PROVIDERS: ATTEND Nurse Practitioner Family | DX: E11.9 Type 2 diabetes mellitus without complications (principal); Z53.8 Procedure and treatment not carried out for other reasons ==

== ENCOUNTER → 2025-02-13 | Outpatient (REF) | payer MEDICARE, MEDICAID ==
[2025-02-13 11:28] LABS: CALCIUM LEVEL 7.9 MG/DL (8.3-10.6); CARBON DIOXIDE LEVEL 27 MMOL/L (20-31); CHLORIDE LEVEL 97 MMOL/L (98-107); CREATININE FOR GFR 0.55 MG/DL (0.55-1.30); GLOMERULAR FILTRATION RATE > 90.0 (>39); POTASSIUM SERUM 4.4 MMOL/L (3.5-5.1); SODIUM LEVEL 134 MMOL/L (136-145)
[2025-02-15 04:17] LABS: Estimated Ave Glu(eAG) 4.1 mmol/L
== END ==
PROVIDERS: ATTEND Nurse Practitioner Family
DX: I50.9 Heart failure, unspecified (principal); Z79.899 Other long term (current) drug therapy

== ENCOUNTER → 2025-02-16 | Outpatient (REF) | payer MEDICARE, MEDICAID | PROVIDERS: ATTEND Nurse Practitioner Family | DX: K50.90 Crohn's disease, unspecified, without complications (principal); R19.7 Diarrhea, unspecified ==

== ENCOUNTER → 2025-03-02 | Outpatient (REF) | payer MEDICARE, MEDICAID ==
[~2025-03-02] MED LIST changes: -ROSU10TA61 PO; +ROSU10TA90 PO
== END ==
PROVIDERS: ATTEND Nurse Practitioner Family
DX: E03.9 Hypothyroidism, unspecified (principal)

== ENCOUNTER → 2025-03-11 | Outpatient (REF) | payer MEDICARE, MEDICAID | PROVIDERS: ATTEND Nurse Practitioner Family | DX: S31.809A Unspecified open wound of unspecified buttock, initial encounter (principal) ==

== ENCOUNTER → 2025-03-13 | Outpatient (REF) | payer MEDICARE, MEDICAID ==
[2025-03-13 17:57] LABS: PLATELET COUNT, AUTOMATED 444 10^3/uL (150-450)
[2025-03-13 18:28] LABS: ALT/SGPT 17 U/L (7.0-40); AST/SGOT 51 U/L (<34); CALCIUM LEVEL 7.3 MG/DL (8.3-10.6); CARBON DIOXIDE LEVEL 27 MMOL/L (20-31); CHLORIDE LEVEL 99 MMOL/L (98-107); CREATININE FOR GFR 0.53 MG/DL (0.55-1.30); GLOMERULAR FILTRATION RATE > 90.0 (>39); POTASSIUM SERUM 5.6 MMOL/L (3.5-5.1); SODIUM LEVEL 135 MMOL/L (136-145)
== END ==
PROVIDERS: ATTEND Internal Medicine
DX: L89.159 Pressure ulcer of sacral region, unspecified stage (principal)

== ENCOUNTER → 2025-03-16 | Outpatient (REF) | payer MEDICARE, MEDICAID ==
[2025-03-16 11:20] LABS: PLATELET COUNT, AUTOMATED 446 10^3/uL (150-450)
[2025-03-16 12:26] LABS: CALCIUM LEVEL 7.3 MG/DL (8.3-10.6); CARBON DIOXIDE LEVEL 27 MMOL/L (20-31); CHLORIDE LEVEL 101 MMOL/L (98-107); CREATININE FOR GFR 0.57 MG/DL (0.55-1.30); GLOMERULAR FILTRATION RATE > 90.0 (>39); POTASSIUM SERUM 4.4 MMOL/L (3.5-5.1); SODIUM LEVEL 137 MMOL/L (136-145)
== END ==
LOC: EEVIPCON 06:41
PROVIDERS: ATTEND Nurse Practitioner Family
DX: T84.54XS Infection and inflammatory reaction due to internal left knee prosthesis, sequela (principal); Z79.899 Other long term (current) drug therapy

== ENCOUNTER → 2025-04-06 | Outpatient (REF) | payer MEDICARE, MEDICAID ==
[2025-04-06 10:28] LABS: PLATELET COUNT, AUTOMATED 662 10^3/uL (150-450)
[2025-04-06 10:49] LABS: C REACTIVE PROTEIN QUANTITATIV 8.71 MG/DL (<1.0)
[2025-04-06 10:52] LABS: ALT/SGPT 20 U/L (7.0-40); AST/SGOT 40 U/L (<34); CALCIUM LEVEL 7.3 MG/DL (8.3-10.6); CARBON DIOXIDE LEVEL 29 MMOL/L (20-31); CHLORIDE LEVEL 98 MMOL/L (98-107); CREATININE FOR GFR 0.60 MG/DL (0.55-1.30); GLOMERULAR FILTRATION RATE > 90.0 (>39); POTASSIUM SERUM 4.6 MMOL/L (3.5-5.1); SODIUM LEVEL 134 MMOL/L (136-145)
== END ==
PROVIDERS: ATTEND Nurse Practitioner Family
DX: E11.9 Type 2 diabetes mellitus without complications (principal); T84.54XS Infection and inflammatory reaction due to internal left knee prosthesis, sequela

== ENCOUNTER → 2025-04-22 | Outpatient (REF) | payer MEDICARE, MEDICAID | PROVIDERS: ATTEND Nurse Practitioner Family | DX: S91.102A Unspecified open wound of left great toe without damage to nail, initial encounter (principal) ==

== ENCOUNTER → 2025-04-27 | Outpatient (REF) | payer MEDICARE, MEDICAID | PROVIDERS: ATTEND Nurse Practitioner Family | DX: E03.9 Hypothyroidism, unspecified (principal) ==